=== PATIENT | male | born 1945 | race Caucasian/White ===

== ENCOUNTER 2019-05-29 15:09 | Outpatient (CLI) | payer MEDICARE, SELFPAY ==
--- NOTE | ~2019-05-29 | XR_ITS ---
EXAMINATION: XR abdomen obstructive series DATE: 05/29/2019 15:57 INDICATION: Diffuse abdominal pain with nausea and chronic constipation TECHNIQUE: Frontal supine and upright views of the abdomen were obtained. COMPARISON: CT dated 10/14/2018 FINDINGS: Cholecystectomy clips in the right upper quadrant. Likely dropped clips in the central pelvis. Moder ate amount of stool scattered throughout the colon. No dilated gas-filled loops of bowel. No free in traperitoneal gas. Lungs are clear with no focal airspace opacities, pleural effusion, pulmonary juan a or pneumothorax. Cardiomediastinal silhouette is normal. Dual lead pacemaker/AICD seen with leads p rojecting over the expected locations of the right atrium and right ventricle. A few phleboliths in t he pelvis. IMPRESSION: 1. No free intraperitoneal gas or dilated gas-filled loops of bowel to suggest obstruction. Reviewed, dictated and finalized at location B. [facility]
[2019-05-29 15:28] LABS: Basophils Absolute Auto 0.03 K/mm3 (0.00-0.10); Basophils Percent Auto 0.6 % (0.0-1.0); Eosinophils Absolute Auto 0.32 K/mm3 (0.02-0.50); Hematocrit 39.5 % (37.0-46.0); Hemoglobin 13.3 g/dL (12.4-15.3); Immature Granulocyte Absolute 0.02 K/mm3 (0.00-0.00); Immature Granulocyte Percent A 0.4 % (0.0-0.0); Lymphocytes Absolute Auto 1.36 K/mm3 (1.10-4.50); Lymphocytes Percent Auto 25.6 % (18.0-42.0); Mean Corpuscular HGB Conc 33.7 g/dL (32.0-36.0); Mean Corpuscular Hemoglobin 30.2 pg (27.0-31.0); Mean Corpuscular Volume 89.6 fL (78.0-102.0); Mean Platelet Volume 9.8 fl (8.7-11.0); Monocytes Absolute Auto 0.67 K/mm3 (0.10-0.90); Monocytes Percent Auto 12.6 % (2.0-11.0); Neutrophils Absolute Auto 2.9 K/mm3 (1.7-7.2); Neutrophils Percent Auto 54.8 % (50.0-70.0); Platelet Count Result 160 K/mm3 (150-420); Red Blood Count 4.41 M/mm3 (4.70-6.10); Red Cell Distribution Width 13.4 % (11.6-14.4); White Blood Count 5.3 K/mm3 (4.8-10.8)
[2019-05-29 15:33] LABS: Appearance Urine Clear (Clear); Bilirubin Urine Negative (Negative); Blood Urine Negative (Negative); Color Urine Yellow (Yellow); Glucose Urine UA Negative (Negative); Ketones Urine Negative (Negative); Leukocyte Esterase Ur Negative LEU/UL (Negative); Nitrate Urine Negative (Negative); Protein Urine Negative (Negative); Urobilinogen Urine 0.2 mg/dL (0.2-1.0); pH Urine 5.5 (5.0-8.0)
[2019-05-29 15:38] LABS: Add Urine Microscopic? NO
[2019-05-29 15:45] LABS: Alanine Aminotransferase 22 U/L (16-63); Albumin Level 3.9 g/dL (3.4-5.0); Alkaline Phosphatase 63 U/L (46-116); Amylase 41 U/L (25-115); Aspartate Amino Transferase 20 U/L (15-37); Bilirubin,Total 0.5 mg/dL (0.00-1.00); Blood Urea Nitrogen 20 mg/dL (7-18); Calcium 8.7 mg/dL (8.5-10.1); Carbon Dioxide 29 mmol/L (21-32); Chloride 103 mmol/L (98-108); Estimated Glomerular Filt Rate 46; Glucose 99 mg/dL (70-99); Lipase 71 U/L (73-393); Osmolality Calculated 294 mOsm/kg (285-295); Sodium 141 mmol/L (136-145); Total Protein 7.9 g/dL (6.4-8.2)
[2019-05-30 10:09] LABS: Free T4 Free Thyroxine 1.11 ng/dL (0.76-1.46); Thyroid Stimulating Hormone 4.53 uIU/mL (0.36-3.74)
== END 2019-05-29 15:10 | disposition home or self-care (01) ==
PROVIDERS: PCP Internal Medicine; Visit Provider Nurse Practitioner Family
DX: R10.9 Unspecified abdominal pain (principal); E03.9 Hypothyroidism, unspecified
CPT/HCPCS: 36415; 74019; 80053; 81003; 82150; 83690; 84439; 84443; 85025

== ENCOUNTER 2019-07-08 09:01 | Outpatient (CLI) | payer MEDICARE, SELFPAY ==
[2019-07-08 10:40] LABS: Blood Urea Nitrogen 14 mg/dL (9-20); Calcium 9.2 mg/dL (8.4-10.2); Carbon Dioxide 29 mmol/L (22-30); Chloride 99 mmol/L (98-107); Estimated Glomerular Filt Rate > 60; Glucose 110 mg/dL (75-110); Potassium 4.2 mmol/L (3.4-5.0); Sodium 137 mmol/L (137-145)
== END 2019-07-08 09:02 | disposition home or self-care (01) ==
PROVIDERS: PCP Internal Medicine; Visit Provider Internal Medicine
DX: R07.89 Other chest pain (principal)
CPT/HCPCS: 36415; 80048

== ENCOUNTER 2019-09-16 13:29 | Outpatient (CLI) | payer MEDICARE, SELFPAY ==
[2019-09-16 14:18] LABS: Basophils Percent Auto 0.5 % (0.2-1.2); Eosinophils Absolute Auto 0.1 K/mm3 (0-0.3); Eosinophils Percent Auto 2.1 % (0-4.4); Hematocrit 43.6 % (42.0-52.0); Hemoglobin 14.4 g/dL (14.0-18.0); Immature Granulocyte Absolute 0.01 K/mm3 (0.00-0.031); Immature Granulocyte Percent A 0.2 % (0-0.5); Lymphocytes Percent Auto 30.2 % (18.3-44.2); Mean Corpuscular Hemoglobin 29.5 pg (26-34); Mean Corpuscular Volume 89.3 fl (80-100); Monocytes Absolute Auto 0.5 K/mm3 (0.1-0.6); Monocytes Percent Auto 11.2 % (2.6-8.5); Neutrophils Absolute Auto 2.4 K/mm3 (1.3-6.7); Neutrophils Percent Auto 55.8 % (45.5-73.1); Platelet Count Result 174 k/mm3 (150-375); Red Blood Count 4.88 M/mm3 (4.6-6.20); Red Cell Distribution Width 13.4 % (11.5-14.5); White Blood Count 4.3 K/mm3 (4.5-10.0)
[2019-09-16 14:32] LABS: Alanine Aminotransferase 15 U/L (4-50); Albumin Level 4.4 g/dL (3.5-5.1); Alkaline Phosphatase 57 U/L (38-126); Aspartate Amino Transferase 26 U/L (17-59); Bilirubin,Total 0.5 mg/dL (0.2-1.3); Blood Urea Nitrogen 13 mg/dL (9-20); Calcium 9.2 mg/dL (8.4-10.2); Carbon Dioxide 31 mmol/L (22-30); Chloride 101 mmol/L (98-107); Estimated Glomerular Filt Rate 59; Glucose 113 mg/dL (75-110); Potassium 4.2 mmol/L (3.4-5.0); Sodium 139 mmol/L (137-145)
[2019-09-16 14:42] LABS: Troponin I < 0.012 ng/mL (0.000-0.034)
[2019-09-16 14:58] LABS: Erythrocyte Sedimentation Rate 8 mm/hr (0-20)
== END 2019-09-16 13:30 | disposition home or self-care (01) ==
PROVIDERS: PCP Internal Medicine; Visit Provider Internal Medicine Cardiovascular Disease
DX: I25.118 Atherosclerotic heart disease of native coronary artery with other forms of angina pectoris (principal); R07.9 Chest pain, unspecified
CPT/HCPCS: 36415; 80053; 84484; 85025; 85652

== ENCOUNTER 2019-12-25 09:40 | Outpatient (CLI) | payer MEDICARE, SELFPAY ==
[2019-12-25 11:30] LABS: Free T4 Free Thyroxine 1.45 ng/mL (0.78-2.19)
== END 2019-12-25 09:41 | disposition home or self-care (01) ==
LOC: ANHLAB 09:43
PROVIDERS: PCP Internal Medicine; Visit Provider Internal Medicine
DX: E78.5 Hyperlipidemia, unspecified (principal); Z12.5 Encounter for screening for malignant neoplasm of prostate
CPT/HCPCS: 36415; 84153; 84439; 84443; G0103

== ENCOUNTER 2019-12-29 02:59 | Outpatient (CLI) | payer MEDICARE, SELFPAY ==
[2019-12-30 22:31] LABS: SARS-CoV-2 RNA PCR Negative
== END 2019-12-29 03:00 | disposition home or self-care (01) ==
LOC: ANHCOVIDDT 03:00
PROVIDERS: PCP Internal Medicine; Visit Provider Specialist
DX: Z01.812 Encounter for preprocedural laboratory examination (principal); Z11.59 Encounter for screening for other viral diseases
CPT/HCPCS: 87635; C9803; U0003

== ENCOUNTER 2019-12-31 05:25 | Day surgery (SDC) | payer MEDICARE, SELFPAY ==
[2019-12-30 17:13] VITALS: BMI 35.3
[2019-12-31] VITALS (7 sets, daily range): BP systolic 94–132; BP diastolic 65–89; PULSE 60–84; RESP 12–20; TEMP 36.2–36.6; O2SAT 95–100
--- NOTE | 2019-12-31 08:30 | ECG_ITS ---
Measurements Intervals [place] Rate: 70 P: [place]: 0 QRS: -29 QRSD: 233 T: 70 QT: 529 QTc: 575 Interpretive Statements ELECTRONIC VENTRICULAR PACEMAKER FUSION COMPLEXES NO FURTHER INTERPRETATION IS POSSIBLE ATYPICAL ECG Electronically Signed On 12-31-2019 9:02:38 CDT by Sadi Ibrahim D.O.
[2019-12-31 09:36] LABS: Anion Gap 10.2 mmol/L (7-16); Blood Urea Nitrogen 13 mg/dL (9-20); Calcium 8.8 mg/dL (8.4-10.2); Carbon Dioxide 26 mmol/L (22-30); Chloride 104 mmol/L (98-107); Estimated CRCL calculation 77 ml/min; Estimated Glomerular Filt Rate > 60; Glucose 122 mg/dL (75-110); Magnesium 2.2 mg/dL (1.6-2.3); Potassium 4.2 mmol/L (3.4-5.0); Sodium 136 mmol/L (137-145)
--- NOTE | 2019-12-31 10:00 | ECG_ITS ---
Measurements Intervals [place] Rate: 60 P: 86 AR: 247 QRS: -37 QRSD: 197 T: 159 QT: 537 QTc: 537 Interpretive Statements ELECTRONIC ATRIAL PACEMAKER LEFT AXIS DEVIATION LEFT BUNDLE BRANCH BLOCK ABNORMAL ECG Electronically Signed On 12-31-2019 14:47:18 CDT by Sadi Ibrahim D.O.
--- NOTE | 2019-12-31 10:20 | WPDMODSED ---
Moderate Sedation Note-Pt Data Patient Data Diagnosis: recurrent atrial flutter ischemic cardiomyopathy with chronically implanted pacemaker/ICD Present Complaint: fatigue, exertional dyspnea Procedure to be performed/Plan: attempt at burst pacing cardioversion / DC cardioversion Allergies Allergy/AdvReac Type Severity Reaction Status Date / Time Sulfa (Sulfonamide Allergy Unknown Verified 08/02/18 00:09 Antibiotics) Home Medications Medication Instructions Recorded Confirmed Type amiodarone 400 mg PO DAILY 12/30/19 12/30/19 History aspirin 81 mg PO DAILY 12/30/19 12/30/19 History dabigatran etexilate [Pradaxa] 150 mg PO BID 12/30/19 12/30/19 History docusate sodium [Colace] 100 mg PO BID PRN 12/30/19 12/30/19 History eplerenone 25 mg PO DAILY 12/30/19 12/30/19 History folic acid 0.4 mg PO DAILY 12/30/19 12/30/19 History furosemide 40 mg PO DAILY 12/30/19 12/30/19 History isosorbide mononitrate 240 mg PO DAILY 12/30/19 12/30/19 History levothyroxine 50 mcg PO DAILY 12/30/19 12/30/19 History linaclotide [Linzess] 145 mcg PO DAILY 12/30/19 12/30/19 History metoprolol tartrate 50 mg PO BID 12/30/19 12/30/19 History ijqsxoydosre-qnu-fdxm-FA-vit K 1 tablet PO DAILY 12/30/19 12/30/19 History [Adults Multivitamin] nitroglycerin 0.4 mg SUBLINGUAL Q5MIN PRN 12/30/19 12/30/19 History nystatin 1 applic TOPICAL DAILY 12/30/19 12/30/19 History omega 1-gyp-tgl-fish oil [Fish Oil] 1 cap PO DAILY 12/30/19 12/30/19 History omeprazole 40 mg PO DAILY 12/30/19 12/30/19 History rosuvastatin 20 mg PO DAILY 12/30/19 12/30/19 History sacubitril-valsartan [Entresto] 49 - 51 tablet PO BID 12/30/19 12/30/19 History Current Medications: Active Medications Sodium Chloride (Normal Saline Iv) 1,000 mls @ 30 mls/hr IV CONT .Q24H NATALI Sedation/Anesthesia: No previous sedation/anesthesia problems (including family history). [facility] Social History Social History Smoking status: Never smoker Substance use: never Living arrangements: with family Gender identity (if verbalized by the patient): Male Spiritual care concerns: No Mod Sed Physical Exam Physical Exam Pre Procedural Exam: Normal: Neck, Throat, Airway, Lungs, Heart Size, Heart Rate, Heart Rhythm, Neuro Exam and Extremities and Variation: Appearance ( overweight white male no apparent distress) Hours since solid foods: 12 Hours since liquid intake: 12 Internal Medicine - PN: Obj Da Vital Signs Vital Signs: Vital Signs - 24 hr 12/31/19 09:24 12/31/19 10:07 12/31/19 10:15 Temperature 36.6 C Pulse Rate 84 70 61 Respiratory Rate 15 20 15 Blood Pressure 108/72 128/89 113/71 Pulse Oximetry 97 100 95 Meds/Results Medications: Active Medications Generic Name Dose Route Start Last Admin Trade Name Freq PRN Reason Stop Dose Admin Sodium Chloride 1,000 mls @ 30 mls/hr 12/31/19 06:00 Normal Saline Iv IV CONT .Q24H [facility] Labs CBC & Chem 7: 12/31/19 09:20 Labs: Laboratory Results - last 24 hr 12/31/19 09:20 Sodium 136 L Potassium 4.2 Chloride 104 Carbon Dioxide 26 Anion Gap 10.2 BUN 13 Creatinine 1.00 Estim Creat Clear Calc 77 Estimated GFR > 60 Glucose 122 H Calcium 8.8 Magnesium 2.2 ASA Classification/Sedation ASA Classification/Sedation ASA Class: II Emergent: No Risks: Risks, benefits and alternatives explained and patient/family accepted plan for sedation. Patient re-evaluated immediately prior to sedation.
--- NOTE | 2019-12-31 10:22 | P.PCNCC_ITS ---
Cardiac Cath Procedure Note Date of procedure:: 12/31/19 Performing physician:: Antonio Bone MD Indication:: recurrent atrial flutter ischemic cardiomyopathy Brief clinical history:: this is a 74-year-old man with coronary disease he has an ischemic cardiomyopathy and a chronically implanted pacemaker/ICD. He has a history of atrial flutter and is now experiencing a sustained recurrence of his rhythm arrhythmia and this is creating symptoms of decreased exertional tolerance. Procedure Procedure performed:: Attempt at burst pacing using the chronically implanted pacemaker /ICD to restore sinus rhythm. this was unsuccessful DC cardioversion Sedation/Medication given:: propofol total dosage of 80 mg IV push in aliquots Access site:: right arm peripheral IV Estimated blood loss:: no blood loss Procedure note:: following an attempt at burst pacing by the [employer] pacemaker rep to restore sinus rhythm which failed the patient was then sedated using propofol. A total dosage of 80 mg was given which provided excellent procedural sedation. He was then cardioverted with 200 joules in a synchronized fashion x1 shock. atrial flutter was immediately terminated and the rhythm was AV sequential pacing. Findings:: Successful uncomplicated cardioversion of atrial flutter using 200 joules x1 shock Conclusion:: as above Antonio Bone MD [facility]
--- NOTE | 2019-12-31 10:39 | SUR.PHASEII ---
1000- Rep at bedside to attempt to interrogate pacemaker prior to scheduled cardioversion. Interrogation unsuccessful. Cardioversion performed per with him at bedside. Successful cardioversion at 1011 with 200 J. Please see moderate sedation sheet for medication given during procedure.
--- NOTE | 2019-12-31 11:29 | SUR.PHASEII ---
Reviewed discharge instructions with patient and spouse. All questions answered. PIV removed, catheter intact. Patient and spouse safely escorted to vehicle via wheelchair by staff.
== END 2019-12-31 11:29 | disposition home or self-care (01) ==
PROVIDERS: PCP Internal Medicine; Visit Provider Specialist
PROC: 5A2204Z Restoration of Cardiac Rhythm, Single (ICD-10-PCS; principal; 2019-12-31 10:00)
DX: I48.92 Unspecified atrial flutter (principal); Z95.810 Presence of automatic (implantable) cardiac defibrillator; I25.10 Atherosclerotic heart disease of native coronary artery without angina pectoris; I25.5 Ischemic cardiomyopathy; Z79.82 Long term (current) use of aspirin; Z79.01 Long term (current) use of anticoagulants
CPT/HCPCS: 36415; 80048; 83735; 92960; 93005; J2704; J7030

== ENCOUNTER 2020-01-24 08:28 | Inpatient (IN) | payer MEDICARE, SELFPAY ==
[2020-01-24] VITALS (16 sets, daily range): BP systolic 97–125; BP diastolic 57–81; PULSE 60–70; RESP 14–20; TEMP 35.9–36.9; O2SAT 97–100; BMI 34.7
--- NOTE | ~2020-01-24 | XR_ITS ---
EXAMINATION: XR chest 2V DATE: 01/24/2020 08:58 INDICATION: Chest pain and shortness of breath TECHNIQUE: PA and lateral views of the chest are obtained. COMPARISON: 03/12/2019 FINDINGS: The lungs are free of acute opacities. There is no pleural effusion or pneumothorax. The ca rdiomediastinal silhouette is normal. There is mild thoracic spondylosis. A dual-lead cardiac pacemak er of the left chest wall ends with leads in expected locations. IMPRESSION: 1. No acute cardiopulmonary abnormality. Reviewed, dictated and finalized at location A.
--- NOTE | 2020-01-24 08:43 | ECG_ITS ---
Measurements Intervals [place] Rate: 61 P: 214 [place]: 116 QRS: 4 QRSD: 189 T: 139 QT: 539 QTc: 544 Interpretive Statements ELECTRONIC ATRIAL PACEMAKER WITH INHIBITION ELECTRONIC VENTRICULAR PACEMAKER WITH INHIBITION LEFT BUNDLE BRANCH BLOCK BASELINE ARTIFACT- II, III, AVR, AVL, AVF, NO FURTHER INTERPRETATION IS POSSIBLE ABNORMAL ECG Electronically Signed On 01-24-2020 12:36:17 CDT by Sadi Ibrahim D.O.
[2020-01-24 09:03] LABS: Basophils Percent Auto 0.7 % (0.2-1.2); Eosinophils Absolute Auto 0.3 K/mm3 (0-0.3); Eosinophils Percent Auto 5.8 % (0-4.4); Hematocrit 41.1 % (42.0-52.0); Hemoglobin 13.7 g/dL (14.0-18.0); Immature Granulocyte Absolute 0.01 K/mm3 (0.00-0.031); Immature Granulocyte Percent A 0.2 % (0-0.5); Lymphocytes Absolute Auto 1.24 K/mm3 (0.9-3.2); Lymphocytes Percent Auto 27.6 % (18.3-44.2); Mean Corpuscular HGB Conc 33.3 g/dl (32-36); Mean Corpuscular Hemoglobin 29.4 pg (26-34); Mean Corpuscular Volume 88.2 fl (80-100); Mean Platelet Volume 10.4 fl (7.4-10.4); Monocytes Absolute Auto 0.5 K/mm3 (0.1-0.6); Monocytes Percent Auto 10.2 % (2.6-8.5); Neutrophils Absolute Auto 2.5 K/mm3 (1.3-6.7); Neutrophils Percent Auto 55.5 % (45.5-73.1); Platelet Count Result 160 k/mm3 (150-375); Red Blood Count 4.66 M/mm3 (4.6-6.20); Red Cell Distribution Width 13.5 % (11.5-14.5); White Blood Count 4.5 K/mm3 (4.5-10.0)
--- NOTE | 2020-01-24 09:10 | ED.CHESTPAIN ---
HPI - Chest Pain General Chief Complaint: Chest Pain Stated Complaint: sob/chest pain Time Seen by Provider: 01/24/20 08:35 History of Present Illness HPI narrative: Pressure-like exertional chest pain for the past few weeks. Associated with SOB. becoming more freuqent and severe. Known CAD. Reports abnormal stress test a few months ago. Cardiac cath cancelled due to COVID-19. No pain currently. Related Data Home Medications Medication Instructions Recorded Confirmed Adults Multivitamin 1 tablet PO DAILY 12/30/19 01/24/20 Entresto 49 - 51 tablet PO BID 12/30/19 01/24/20 Fish Oil 1 cap PO HS 12/30/19 01/24/20 Linzess 145 mcg PO DAILY 12/30/19 01/24/20 Pradaxa 150 mg PO BID 12/30/19 01/24/20 amiodarone 200 mg PO BID 12/30/19 01/24/20 aspirin 81 mg PO HS 12/30/19 01/24/20 docusate sodium [Colace] 250 mg PO HS PRN 12/30/19 01/24/20 eplerenone 25 mg PO HS 12/30/19 01/24/20 folic acid 0.4 mg PO HS 12/30/19 01/24/20 furosemide 40 mg PO DAILY 12/30/19 01/24/20 isosorbide mononitrate 120 mg PO BID 12/30/19 01/24/20 levothyroxine 50 mcg PO DAILY 12/30/19 01/24/20 metoprolol tartrate 50 mg PO BID 12/30/19 01/24/20 nitroglycerin 0.4 mg SUBLINGUAL Q5MIN PRN 12/30/19 01/24/20 omeprazole 40 mg PO DAILY 12/30/19 01/24/20 rosuvastatin 20 mg PO HS 12/30/19 01/24/20 Allergies Allergy/AdvReac Type Severity Reaction Status Date / Time Sulfa (Sulfonamide Allergy Intermediate Rash Verified 01/24/20 08:38 Antibiotics) Review of Systems Review of Systems: All systems reviewed & are unremarkable except as noted in HPI and below Constitutional: Constitutional: Denies fever(s) Cardiovascular: Cardiovascular: Reports chest pain Respiratory: Respiratory: Reports dyspnea Gastrointestinal: Gastrointestinal: Denies abdominal pain and Denies nausea PMFSH Past Medical History Medical History Coronary artery disease History of anterior wall [place] in 1993 status post balloon angioplasty of the LAD. He is a patient of Dr. Tri Nuñez. Ischemic cardiomyopathy Last ejection fraction was approximately 20%. Status post PM/ICD insertion. Left bundle branch block Paroxysmal atrial fibrillation History of several cardioversions, on long-term anticoagulation. Paroxysmal atrial flutter Status post DC cardioversion on 12/31/2019. Surgical History Surgical History History of cardiac catheterization History of cholecystectomy History of squamous cell carcinoma excision (~05/2016) Excised from the right conchal bowl with FTSG per Dr. Hsu. Presence of combination internal cardiac defibrillator (ICD) and pacemaker [employer] PM/ICD placed in 2000 with history of generator changed x2. Family History Family History Father Acute myocardial infarction Hypertension Sibling Hypertension Social History Social History Social History: Surrogate decision maker: Susana Mcneal, spouse. Code status: Full code. Smoking status: Never smoker Alcohol intake: never Substance use: never Additional living arrangements comments: Resides in [place] with his spouse. Gender identity (if verbalized by the patient): Male Sexual Orientation (if Verbalized by the Patient): Straight or Heterosexual Spiritual care concerns: No Exam Const: General: no acute distress and alert Orientation/consciousness: patient oriented x3 HENMT: Head: normal to inspection Chest: Chest palpation & inspection: normal inspection of the chest and no tenderness Resp: Effort & Inspection: normal respiratory effort Auscultation: clear to auscultation bilaterally Cardio: Rate: regular rate Rhythm: regular rhythm Neuro: General: patient oriented x3, moves all extremities and CN's II-XI intact bilaterally Speech: normal
[2020-01-24 09:12] LABS: INR 1.3
[2020-01-24 09:13] LABS: Partial Thromboplastin Time 39.2 SECONDS (22.3-36.8)
[2020-01-24 09:16] LABS: Anion Gap 7 mmol/L (8-16); Blood Urea Nitrogen 15 mg/dL (9-20); Calcium 9.1 mg/dL (8.4-10.2); Carbon Dioxide 27 mmol/L (22-30); Chloride 103 mmol/L (98-107); Estimated CRCL calculation 83 ml/min; Estimated Glomerular Filt Rate > 60; Glucose 112 mg/dL (75-110); Potassium 4.2 mmol/L (3.4-5.0); Sodium 137 mmol/L (137-145)
[2020-01-24] MEDS: ASPIRIN 81 MG CHEWABLE TABLET 324 MG PO (09:24)
--- NOTE | 2020-01-24 09:25 | PC.NURSE ---
Pt given 3 baby aspirin po as had his normal dose (81mg) last evening.
[2020-01-24 09:28] LABS: NT Pro B Type Natriuretic Pept 235 PG/ML (5-100); Troponin I < 0.012 ng/mL (0.000-0.034)
--- NOTE | 2020-01-24 10:52 | PM.CNCAR ---
Assessment and Plan Assessment and plan (1) Unstable angina: Code(s): I20.0 - Unstable angina Status: Acute Assessment and Plan: 74-year-old male with CAD, history of remote anterior [place] in 1993 treated with angioplasty; CHF with reduced ejection fraction ( last LVEF 20%) status post dual-chamber [employer] ICD placement; atrial fibrillation/flutter status post multiple cardioversions, recent DC cardioversion (12/31/2019), on chronic anticoagulation, chronic left bundle-branch block. Patient admitted to the hospital with worsening angina. EKG shows sinus rhythm, chronic left bundle branch block. First set of troponins negative. Due to patient's worsening angina, repeat coronary angiogram to re-evaluate patient coronary anatomy would be appropriate. Patient has been on chronic anticoagulation with dabigatran until this morning. Dabigatran will be put on hold and patient will be initiated on low-molecular weight heparin. Patient will undergo coronary angiogram in 2 days, earlier only if necessary. continue other medications including aspirin, statin, CHF medications and nitroglycerin p.r.n. for chest pain. Admit patient to telemetry. (2) Ischemic cardiomyopathy: Code(s): I25.5 - Ischemic cardiomyopathy Status: Acute Assessment and Plan: Patient will undergo cardiac catheterization to re-evaluate coronary anatomy during the hospitalization. (3) History of cardioversion: Code(s): Z98.890 - Other specified postprocedural states Status: Acute Assessment and Plan: Dabigatran will be put on hold in anticipation for cardiac catheterization. Patient will be initiated on low-molecular weight heparin. History of Present Illness History of Present Illness Consult date/time: 01/24/20 10:52 Date of service: 01/24/2020 Reason for consult: chest pain Requesting physician:Dr Recinos Chief complaint: Chest pain HPI: 74-year-old male with CAD, history of remote anterior NE in 1993 treated with angioplasty; CHF with reduced ejection fraction ( last LVEF 20%) status post dual-chamber [employer] ICD placement; atrial fibrillation/flutter status post multiple cardioversions, recent DC cardioversion (12/31/2019), on chronic anticoagulation, chronic left bundle-branch block. Patient follows up with Dr. Nuñez for cardiovascular care. Review of notes indicate that he has been been managed with optimal medical treatment for his chronic angina. His previous MPI is reported to show large anterior infarction without ischemia. Patient came to [facility] ER on 01/24/2020 with complaints of Worsening chest discomfort. He has baseline angina, however, her last 2-3 days, states that his symptoms of chest pain are more frequent and happen with less exertion. His symptoms are associated with shortness of breath, occasional dizziness without syncope. He denies any ICD shocks. Patient has history of atrial fibrillation /flutter, and has been on chronic anticoagulation with dabigatran. His last dose of dabigatran was this morning. His EKG which I personally evaluated showed sinus rhythm with Chronic left bundle branch block, no acute ST segment abnormality. chest x-ray is unremarkable. First set of troponins negative. NT proBNP is 235. . Patient's last cardiac catheterization was done on 12/12/[address] Nuñez. He was found to have patent left main, focal stenosis in the LAD with normal IFR; 50-70% stenosis ostial ramus, mild disease in the RCA, EF 20%. He was managed with optimal medical treatment. Reason For Visit: sob/chest pain Review of Systems Constitutional: Constitutional: Denies chills, Denies fatigue, Denies fever(s) and Denies headache(s) Eyes: Eyes: Reports as per HPI, Denies change in vision, Denies loss of vision and Denies eye pain ENT: Reports as per HPI, Reports Normal hearing present, Denies headache(s), Denies lip swelling, Denies e
--- NOTE | 2020-01-24 11:18 | PC.NURSE ---
Report to ANAIS Brasher, continue care.
[2020-01-24 12:01] LABS: Troponin I < 0.012 ng/mL (0.000-0.034)
[2020-01-24] MEDS: ENOXAPARIN 120 MG/0.8 ML SYRINGE 115 MG SUB-Q (12:58)
--- NOTE | 2020-01-24 13:30 | ADMGEN ---
This patient, Andrés Mcneal, was admitted to IMU Room 207-01. Patient/family oriented to hospital policies and general routines including ID bracelet, bed and alarms, visiting hours, pain management, procedures, bathroom and other care routines, personal items, smoking policy, room service/diet, and visiting hours. Valuables list has been completed. Information on how to activate the Rapid Response Team has been discussed. Patient/Family are encouraged to report perceived risks to care and to ask questions if they do not understand what they are told or what they should do.
[2020-01-24 15:22] LABS: Troponin I < 0.012 ng/mL (0.000-0.034)
--- NOTE | 2020-01-24 15:45 | PM.IMHP ---
H&P: HPI History of Present Illness Date/Time: 01/24/20 15:45 <Sara Perez PA-C - Last Filed: 01/24/20 23:51> Chief complaint: Chest pain. <Sara Perez PA-C - Last Filed: 01/24/20 23:51> Narrative: Andrés Mcneal is a 74-year-old male with coronary artery disease in remote history of anterior wall myocardial infarction status post balloon angioplasty to the LAD, severe ischemic cardiomyopathy with last ejection fraction approximately 20%, status post pain PM/ICD insertion, paroxysmal atrial fibrillation and flutter status with history of several cardioversions, the most recent being 12/31/2019, hypertension, dyslipidemia, and hypothyroidism who presented to the emergency department earlier today for evaluation of chest pain. Several days while walking around the home he felt a little short of breath, which is unusual. When he developed increasing shortness of breath and midsternal discomfort while walking from his car to the store the other day he became concerned. Apparently he had a fluttering sensation in his chest and then experienced discomfort radiating into the jaw and left arm, similar to when he had an [place] in 1993. Nitroglycerin did not help, unfortunately. He also mentions sweats, mainly at nighttime over the past 1 month, not necessarily related to the chest discomfort and shortness of breath. He has not had nausea or vomiting. He does not believe that he was in atrial fibrillation/flutter when this sensation occurred as he can typically tell when he is in an irregular rhythm , but he does note that his heart rate was faster than usual, and tells me that his pacemaker is set to 60 beats per minute. At the time my evaluation he does not have any complaints and is having no chest discomfort or shortness of breath. He has not had fever or chills and denies recent cold and flu symptoms. No sick contacts, recent travel, or exposure to anyone positive for COVID-19. <Sara Perez PA-C - Last Filed: 01/24/20 23:51> Review of Systems Review of Systems: Narrative: Twelve systems were reviewed with pertinent positives and negatives as per HPI. No orthopnea, PND, or lower extremity edema. He denies calf pain. No history of venous thromboembolism. No pleuritic pain. Except as documented, all other systems were reviewed and are negative. <Sara Perez PA-C - Last Filed: 01/24/20 23:51> [facility] Past Medical History Medical History: Medical History (Updated 01/25/20 @ 10:30 by Gurvinder Baez MD) Coronary artery disease History of anterior wall [place] in 1993 status post balloon angioplasty of the LAD. He is a patient of Dr. Tri Nuñez. Essential hypertension Gastroesophageal reflux disease Hyperlipidemia Hypothyroidism Ischemic cardiomyopathy Last ejection fraction was approximately 20%. Status post PM/ICD insertion. Left bundle branch block Paroxysmal atrial fibrillation History of several cardioversions, on long-term anticoagulation. Paroxysmal atrial flutter Status post DC cardioversion on 12/31/2019. 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 <Sara Perez PA-C - Last Filed: 01/24/20 23:51> Surgical History Surgical History: Surgical History History of cardiac catheterization History of cholecystectomy History of squamous cell carcinoma excision (~05/2016) Excised from the right conchal bowl with FTSG per Dr. Hsu. Presence of combination internal cardiac defibrillator (ICD) and pacemaker [employer] PM/ICD placed in 2000 with history of generator changed x2. <Sara Perez PA-C - Last Filed: 01/24/20 23:51> Family History Family History: Family History Father Acute myocardial infarction Hypertension Sibling Hypertension <Sara Perez PA-C - Last Filed: 01/24/20 23:51> Social Histor
[2020-01-24] MEDS: SACUBITRIL/VALSARTAN 49-51 MG TABLET 1 TABLET PO (18:24)
[2020-01-24] MEDS: ISOSORBIDE MONONITRATE 60 MG TAB.ER.24H 120 MG PO (18:24)
[2020-01-24] MEDS: AMIODARONE HCL 200 MG TABLET PO (18:25)
[2020-01-24] MEDS: FOLIC ACID 0.4 MG TABLET PO (20:57)
[2020-01-24] MEDS: METOPROLOL TARTRATE 50 MG TAB PO (20:57)
[2020-01-24] MEDS: ROSUVASTATIN 10 MG TABLET 20 MG PO (20:57)
[2020-01-24] MEDS: OMEGA 3 POLYUNSAT FATTY ACIDS 1 GM CAP PO (20:57)
[2020-01-24] MEDS: ASPIRIN 81 MG CHEWABLE TABLET PO (20:59)
[2020-01-25] VITALS (17 sets, daily range): BP systolic 93–108; BP diastolic 60–65; PULSE 12–94; RESP 12–97; TEMP 35.5–36.4; O2SAT 97–99
[2020-01-25] MEDS: ENOXAPARIN 120 MG/0.8 ML SYRINGE 115 MG SUB-Q ×2 (00:11→12:00)
[2020-01-25 04:47] LABS: Hematocrit 41.2 % (42.0-52.0); Mean Corpuscular Volume 88.4 fl (80-100); Mean Platelet Volume 10.4 fl (7.4-10.4); Platelet Count Result 150 k/mm3 (150-375); Red Blood Count 4.66 M/mm3 (4.6-6.20); Red Cell Distribution Width 13.2 % (11.5-14.5); White Blood Count 4.6 K/mm3 (4.5-10.0)
[2020-01-25 05:03] LABS: Alanine Aminotransferase 16 U/L (4-50); Albumin Level 4.1 g/dL (3.5-5.1); Alkaline Phosphatase 60 U/L (38-126); Anion Gap 7 mmol/L (8-16); Aspartate Amino Transferase 25 U/L (17-59); Bilirubin,Total 0.8 mg/dL (0.2-1.3); Blood Urea Nitrogen 15 mg/dL (9-20); Carbon Dioxide 29 mmol/L (22-30); Chloride 100 mmol/L (98-107); Estimated CRCL calculation 69 ml/min; Estimated Glomerular Filt Rate > 60; Glucose 105 mg/dL (75-110); Magnesium 2.3 mg/dL (1.6-2.3); Potassium 3.6 mmol/L (3.4-5.0); Sodium 136 mmol/L (137-145)
[2020-01-25] MEDS: LEVOTHYROXINE SODIUM 100 MCG TABLET PO (06:12)
[2020-01-25] MEDS: FUROSEMIDE 40 MG TABLET PO (08:07)
[2020-01-25] MEDS: AMIODARONE HCL 200 MG TABLET PO ×2 (08:08→18:00)
[2020-01-25] MEDS: ISOSORBIDE MONONITRATE 60 MG TAB.ER.24H 120 MG PO ×2 (08:08→18:00)
[2020-01-25] MEDS: PANTOPRAZOLE 40 MG TABLET PO (08:09)
[2020-01-25] MEDS: METOPROLOL TARTRATE 50 MG TAB PO ×2 (08:09→19:53)
[2020-01-25] MEDS: MULTIVITAMINS /C LUTEIN (CENTRUM SILVER) TABLET *BKC 1 TAB PO (08:10)
[2020-01-25] MEDS: SACUBITRIL/VALSARTAN 49-51 MG TABLET 1 TABLET PO ×2 (08:10→18:00)
--- NOTE | 2020-01-25 09:45 | PM.PNCARD ---
Progress Note: A&P Assessment and Plan (1) Unstable angina: Code(s): I20.0 - Unstable angina Status: Acute Assessment and Plan: 74-year-old male with CAD, history of remote anterior [place] in 1993 treated with angioplasty; CHF with reduced ejection fraction ( last LVEF 20%) status post dual-chamber [employer] ICD placement; atrial fibrillation/flutter status post multiple cardioversions, recent DC cardioversion (12/31/2019), on chronic anticoagulation, chronic left bundle-branch block. Patient admitted to the hospital with worsening angina. EKG shows sinus rhythm, chronic left bundle branch block. Serial troponins are negative. Due to patient's worsening angina, repeat coronary angiogram to re-evaluate patient coronary anatomy would be appropriate. Patient had been on chronic anticoagulation with dabigatran which he had taken until the day of admission. - Continue to hold dabigatran. Continue low-molecular weight heparin, last dose tonight. Keep NPO from midnight. Patient will undergo coronary angiogram tomorrow, earlier only if necessary. continue other medications including aspirin, statin, CHF medications and nitroglycerin p.r.n. for chest pain. continue to monitor in telemetry. (2) Ischemic cardiomyopathy: Code(s): I25.5 - Ischemic cardiomyopathy Status: Acute Assessment and Plan: Patient will undergo cardiac catheterization to re-evaluate coronary anatomy during the hospitalization. (3) History of cardioversion: Code(s): Z98.890 - Other specified postprocedural states Status: Acute Assessment and Plan: Dabigatran on hold in anticipation for cardiac catheterization. Patient will be initiated on low-molecular weight heparin. Subjective Date/time seen: 01/25/20 09:45 date of service: 01/25/2020 Patient had fluttering sensation in the chest last night and dyspnea on exertion. This morning, he denies any ongoing chest pain. Review of Systems Constitutional: Constitutional: Denies chills, Denies fatigue, Denies fever(s) and Denies headache(s) Eyes: Eyes: Reports as per HPI, Denies change in vision, Denies loss of vision and Denies eye pain ENT: Reports as per HPI, Reports Normal hearing present, Denies headache(s), Denies lip swelling, Denies epistaxis and Denies sore throat Cardiovascular: Cardiovascular: Reports as per HPI, Reports chest pain, Denies syncope, Denies irregular heart rhythm, Reports lightheadedness and Reports dyspnea Respiratory: Respiratory: Reports as per HPI, Denies cough, Denies dyspnea and Denies wheezing Gastrointestinal: Gastrointestinal: Reports as per HPI, Denies abdominal pain, Denies melena, Denies nausea and Denies vomiting Genitourinary: Genitourinary: Reports as per HPI Musculoskeletal: Musculoskeletal: Reports as per HPI, Denies myalgias, Denies muscle cramps and Denies muscle weakness Integumentary/Breasts: Skin/Breast: Reports as per HPI, Denies pruritus and Denies rash Neurologic: Reports as per HPI, Reports Normal hearing present, Denies behavioral changes, Denies syncope, Denies headache(s) and Denies loss of vision Psychiatric: Psychiatric: Reports as per HPI, Denies anxiety, Denies behavioral changes and Denies depression Endocrine: Endocrine: Reports as per HPI, Denies fatigue, Denies polydipsia and Denies polyuria Hematologic/Lymphatic: Hematologic/Lymphatic: Reports as per HPI, Denies easy bleeding and Denies easy bruising Allergic/Immunologic: Allergic/Immunologic: Reports as per HPI, Denies lip swelling and Denies wheezing Exam Const: General: no acute distress, alert and awake HENMT: Head: normocephalic and atraumatic Ears: hearing grossly normal bilaterally and external ears normal General nose exam: Normal external nose present and no epistaxis Face and sinus: normal facial exam and no ecchymosis Mouth: Yes tongue normal and Yes moist mucous membranes Teeth and gingiva: dentition normal
--- NOTE | 2020-01-25 10:18 | PM.IMPN ---
Progress Note: A&P Assessment and Plan (1) Chest pain: Code(s): R07.9 - Chest pain, unspecified Status: Acute Assessment and Plan: Patient presents with several days of angina, with no improvement with nitroglycerin. EKG showing paced rhythm. troponin negative x3. Cardiology is following along. Plan for coronary angiogram tomorrow. Continue aspirin, statin, and beta-sunil. (2) Ischemic cardiomyopathy: Code(s): I25.5 - Ischemic cardiomyopathy Status: Acute Assessment and Plan: Clinically compensated. PM/ICD in situ. Continue Entresto, eplerenone, and furosemide. (3) Hypothyroidism: Code(s): E03.9 - Hypothyroidism, unspecified Status: Acute Assessment and Plan: TSH 4.8. Continue levothyroxine (4) Hyperlipidemia: Code(s): E78.5 - Hyperlipidemia, unspecified Status: Acute Assessment and Plan: LFTs within normal limits. Continue Crestor. (5) Essential hypertension: Code(s): I10 - Essential (primary) hypertension Status: Acute Assessment and Plan: Patient's blood pressure was reviewed on 01/24 Blood pressure remains well controlled. Watch for hypotension. Will continue current medications. (6) Paroxysmal atrial fibrillation: Code(s): I48.0 - Paroxysmal atrial fibrillation Status: Acute Assessment and Plan: Paced rhythm. Continue Amiodarone. Dabigatran on hold per Dr. Aguila in anticipation of cardiac catheterization on Sunday. Currently on therapeutic doses of low molecular weight heparin b.i.d. until that time. (7) DVT prophylaxis: Code(s): Z29.9 - Encounter for prophylactic measures, unspecified Status: Acute Assessment and Plan: Lovenox. Subjective Date/time seen: 01/25/20 10:18 Interval history: 74yo male with iCMP and pAFib here for chest pain. Patient had his amiodarone dose increased 3 weeks ago. He had cardioversion 2 weeks ago. Over the past week he has noted chest fluttering. He had 1 episode where he was walking out of a store when he developed jaw pain that radiated down his left arm. This was associated with chest fluttering as well. The jaw pain is similar to the time he had myocardial infarction 1993. The pain was not as severe as it was back then. Because this reason he presented emergency room evaluation. He did have an episode of fluttering in the chest overnight but not currently. The symptoms occurred at rest. They seem to worsen when he was up walking to the bathroom. He did not notify the nurse. Exam Narrative: Exam Narrative: AF 96.1 108/65 61 16 Gen - NARD Chest - CTA bilaterally, nml RR CV - RRR S1/S2. Telemetry showing paced rhythm but no significant dysrhythmias Abd - Soft, NT/ND, Positive BS Ext - No pedal edema Neuro - Alert and oriented. Nonfocal exam. Psych - Nml mood and affect Skin - Warm and dry Objective Data Vital Signs Vital Signs: Vital Signs - 24 hr 01/24/20 11:32 01/24/20 12:58 01/24/20 13:30 Temperature 98 F 98.5 F Pulse Rate 60 60 61 Respiratory Rate 16 16 20 Blood Pressure 107/73 122/69 117/68 Pulse Oximetry 97 97 99 01/24/20 14:00 01/24/20 14:05 01/24/20 16:00 Temperature Pulse Rate 60 60 60 Respiratory Rate 16 Blood Pressure Pulse Oximetry 97 01/24/20 16:52 01/24/20 18:00 01/24/20 18:25 Temperature 96.6 F L Pulse Rate 61 61 61 Respiratory Rate 16 Blood Pressure 97/57 L Pulse Oximetry 97 01/24/20 19:36 01/24/20 20:00 01/24/20 20:57 Temperature 96.8 F L Pulse Rate 60 60 61 Respiratory Rate 16 16 Blood Pressure 104/66 Pulse Oximetry 99 9
[2020-01-25] MEDS: ROSUVASTATIN 10 MG TABLET 20 MG PO (19:50)
[2020-01-25] MEDS: OMEGA 3 POLYUNSAT FATTY ACIDS 1 GM CAP PO (19:53)
[2020-01-25] MEDS: FOLIC ACID 0.4 MG TABLET PO (19:53)
[2020-01-25] MEDS: ASPIRIN 81 MG CHEWABLE TABLET PO (19:56)
[2020-01-25 23:59] LABS: Free T4 Free Thyroxine Reflex 1.67 ng/dL (0.78-2.19)
[2020-01-26] VITALS (31 sets, daily range): BP systolic 94–130; BP diastolic 55–70; PULSE 57–91; RESP 12–20; TEMP 35.8–36.6; O2SAT 94–99
[2020-01-26 02:09] LABS: Total Triiodothyronine (T3) 1.17 NG/ML (0.97-1.69)
[2020-01-26] MEDS: LEVOTHYROXINE SODIUM 50 MCG TABLET PO (05:57)
--- NOTE | 2020-01-26 06:51 | PC.NURSE ---
Pt arrived approx 0600 01/26/2020
[2020-01-26] MEDS: SACUBITRIL/VALSARTAN 49-51 MG TABLET 1 TABLET PO ×2 (08:35→18:03)
[2020-01-26] MEDS: METOPROLOL TARTRATE 50 MG TAB PO ×2 (08:35→21:08)
[2020-01-26] MEDS: ISOSORBIDE MONONITRATE 60 MG TAB.ER.24H 120 MG PO ×2 (08:35→18:02)
[2020-01-26] MEDS: ASPIRIN 81 MG CHEWABLE TABLET PO (08:36)
[2020-01-26] MEDS: PANTOPRAZOLE 40 MG TABLET PO (08:36)
[2020-01-26] MEDS: MULTIVITAMINS /C LUTEIN (CENTRUM SILVER) TABLET *BKC 1 TAB PO (08:37)
[2020-01-26] MEDS: AMIODARONE HCL 200 MG TABLET PO ×2 (08:50→18:03)
--- NOTE | 2020-01-26 12:49 | WPDMODSED ---
Moderate Sedation Note-Pt Data Patient Data Diagnosis: Coronary artery disease, previous [place] and PCI to LAD in the remote past symptoms compatible with accelerating angina ischemic cardiomyopathy with chronically implanted ICD Present Complaint: exertional chest pain Procedure to be performed/Plan: left heart catheterization Allergies Allergy/AdvReac Type Severity Reaction Status Date / Time Sulfa (Sulfonamide Allergy Intermediate Rash Verified 01/24/20 08:38 Antibiotics) Home Medications Medication Instructions Recorded Confirmed Type Adults Multivitamin 1 tablet PO DAILY 12/30/19 01/24/20 History Entresto 49 - 51 tablet PO BID 12/30/19 01/24/20 History Fish Oil 1 cap PO HS 12/30/19 01/24/20 History Linzess 145 mcg PO DAILY 12/30/19 01/24/20 History Pradaxa 150 mg PO BID 12/30/19 01/24/20 History amiodarone 200 mg PO BID 12/30/19 01/24/20 History aspirin 81 mg PO HS 12/30/19 01/24/20 History docusate sodium [Colace] 250 mg PO HS PRN 12/30/19 01/24/20 History eplerenone 25 mg PO HS 12/30/19 01/24/20 History folic acid 0.4 mg PO HS 12/30/19 01/24/20 History furosemide 40 mg PO DAILY 12/30/19 01/24/20 History isosorbide mononitrate 120 mg PO BID 12/30/19 01/24/20 History levothyroxine 50 mcg PO DAILY 12/30/19 01/24/20 History metoprolol tartrate 50 mg PO BID 12/30/19 01/24/20 History nitroglycerin 0.4 mg SUBLINGUAL Q5MIN PRN 12/30/19 01/24/20 History omeprazole 40 mg PO DAILY 12/30/19 01/24/20 History rosuvastatin 20 mg PO HS 12/30/19 01/24/20 History Current Medications: Active Medications Amiodarone HCl (Pacerone) 200 mg PO BID [facility] Last Admin: 01/26/20 08:50 Dose: 200 mg Documented by: Aspirin (Aspirin Chewable) 81 mg PO DAILY [facility] Last Admin: 01/26/20 08:36 Dose: 81 mg Documented by: Docusate Sodium (Colace Capsule) 200 mg PO HS PRN PRN Reason: Constipation Enoxaparin Sodium (Lovenox) 115 mg SUB-Q Q12H [facility] Last Admin: 01/26/20 08:48 Dose: Not Given Documented by: Fish Oil (Lovaza) 1 gm PO [facility] Stop: 02/23/20 21:01 Last Admin: 01/25/20 19:53 Dose: 1 gm Documented by: Folic Acid (Folic Acid) 0.4 mg PO [facility] Last Admin: 01/25/20 19:53 Dose: 0.4 mg Documented by: Furosemide (Lasix Tablet) 40 mg PO DAILY [facility] Last Admin: 01/26/20 08:46 Dose: Not Given Documented by: Isosorbide Mononitrate (Imdur) 120 mg PO BID [facility] Stop: 02/23/20 17:01 Last Admin: 01/26/20 08:35 Dose: 120 mg Documented by: Levothyroxine Sodium (Synthroid) 50 mcg PO MoTuWeThFrSa [facility] Last Admin: 01/26/20 05:57 Dose: 50 mcg Documented by: Levothyroxine Sodium (Synthroid) 100 mcg PO Simmons@0630 [facility] Last Admin: 01/25/20 06:12 Dose: 100 mcg Documented by: Metoprolol Tartrate (Lopressor) 50 mg PO Q12HR [facility] Last Admin: 01/26/20 08:35 Dose: 50 mg Documented by: Multivitamins/Minerals (Centrum Silver) 1 tab PO DAILY [facility] Last Admin: 01/26/20 08:37 Dose: 1 tab Documented by: Nitroglycerin (Nitrostat Subl 0.4 Mg (1/150)) 0.4 mg SUBLINGUAL Q5MIN PRN PRN Reason: Chest Pain Linaclotide [Linzess ] 145 Mcg Nonformulary Drug 0 mcg PO DAILY@0730 [facility] Stop: 02/25/20 07:31 Last Admin: 01/26/20 08:46 Dose: Not Given Documented by: Pantoprazole Sodium (Protonix) 40 mg PO DAILY [facility] Stop: 02/24/20 09:01 Last Admin: 01/26/20 08:36 Dose: 40 mg Documented by: Rosuvastatin Calcium (Crestor) 20 mg PO [facility] Last Admin: 01/25/20 19:50 Dose: 20 mg Documented by: Sacubitril/Valsartan (Entresto 49 Mg-51 Mg Tablet) 1 tablet PO BID [facility] Last Admin: 01/26/20 08:35 Dose: 1 tablet Documented by: Sedation/Anesthesia: No previous sedation/anesthesia problems (including family history). [facility] Past Medical History Medical History (Updated 01/25/20 @ 10:30 by Gurvinder Baez MD) Coronary artery disease History of anterior wall [place] in 1993 status post balloon angioplasty of the LAD. He is a patient of Dr. Tri Nuñez. Essential hypertension Gastroesophageal reflux disease Hyperlipidemia Hypothyr
--- NOTE | 2020-01-26 12:50 | P.PCNCC_ITS ---
Cardiac Cath Procedure Note Date of procedure:: 01/26/20 Performing physician:: Antonio Bone MD Indication:: 74-year-old man with previous anterior wall MS and ischemic cardiomyopathy. He presents to the hospital over the weekend with accelerating exertional chest pain. Troponin levels are unremarkable. ECG is unhelpful for ischemia as he is in a paced rhythm through his ICD. Brief clinical history:: As above Procedure Procedure performed:: coronary angiography Sedation/Medication given:: fentanyl 50 mg Versed 2 mg case start time 12:19 p.m. case end time 12:40 p.m. sedation provided by Gricelda Barlow RN, trained observer Access site:: right femoral Estimated blood loss:: 15-20 cc Procedure note:: patient was brought to the cardiac catheterization lab in the postabsorptive state where the right femoral triangle was prepared in the usual fashion. Anesthesia was provided with 1% lidocaine infiltrated locally. Using the modified Seldinger technique the 5 [place] sheath was placed into the right femoral artery after this I used a 5 [place] JR4 catheter to engage inject the right coronary artery. After this I used a 5 [place] FL4 catheter to engage inject the left coronary artery. The cine angiograms were then reviewed and the case was terminated. Patient was taken to the holding area for manual sheath removal. He tolerated the procedure well there were no apparent complications and the patient left the catheterization laboratory technician with no evidence of a groin hematoma. Findings:: Hemodynamics: Central aortic pressure is 118/72. LV was not entered during this procedure left main coronary artery is medium in size and nicely patent the LAD is a small to medium caliber vessel and has mild to moderate diffuse atherosclerosis throughout. There are no high-grade lesions identified however. There is some moderate stenosis of 50-60% at the origin of a trifurcate in diagonal branch there is also about 60% stenosis in the midportion of the LAD. Angiographically this appears unchanged compared to 2018 circumflex is a moderate caliber vessel giving rise to the marginal branches and the circumflex system is angiographically free of disease right coronary artery is moderate to large in caliber. Minute to the posterior circulation and is angiographically free of disease Conclusion:: 1. coronary artery disease with anginal symptoms patient has a small to medium size LAD with [id number] diffuse disease no high-grade lesions which appear to be suitable for PCI. Angiographically the vessel is unchanged in appearance compared to the films from 2018. ongoing medical therapy will be recommended 2. no significant circumflex or right coronary lesion Antonio Bone MD FACC
--- NOTE | 2020-01-26 18:09 | PM.IMPN ---
Progress Note: A&P Assessment and Plan (1) Chest pain: Code(s): R07.9 - Chest pain, unspecified Status: Acute Assessment and Plan: Patient presents with several days of angina with no improvement with nitroglycerin. EKG showing paced rhythm. Troponin negative x3. Cardiology is following along. Patient had LHC today showing LAD with [id number] diffuse disease not suitable for PCI (no change from 2018). Continue medical managment with aspirin, statin, and beta-sunil. Consider Ranexa if persistent CP. Home when okay with Cardiology. (2) Ischemic cardiomyopathy: Code(s): I25.5 - Ischemic cardiomyopathy Status: Acute Assessment and Plan: Clinically compensated. PM/ICD in situ. Continue Entresto, eplerenone, and furosemide. (3) Hypothyroidism: Code(s): E03.9 - Hypothyroidism, unspecified Status: Acute Assessment and Plan: TSH 4.8. Continue levothyroxine (4) Hyperlipidemia: Code(s): E78.5 - Hyperlipidemia, unspecified Status: Acute Assessment and Plan: LFTs within normal limits. Continue Crestor. (5) Essential hypertension: Code(s): I10 - Essential (primary) hypertension Status: Acute Assessment and Plan: Patient's blood pressure was reviewed on 01/25 Blood pressure soft at times. Watch for hypotension. Will continue current medications. (6) Paroxysmal atrial fibrillation: Code(s): I48.0 - Paroxysmal atrial fibrillation Status: Acute Assessment and Plan: Paced rhythm. Continue Amiodarone. Dabigatran on on hold per Dr. Aguila in anticipation of cardiac catheterization. Currently on therapeutic doses of lovenox. Will change to prophylactic dose until Dabigatran resumed. (7) DVT prophylaxis: Code(s): Z29.9 - Encounter for prophylactic measures, unspecified Status: Acute Assessment and Plan: Lovenox. Subjective Date/time seen: 01/26/20 0900 Interval history: 74yo male with iCMP and pAFib here for chest pain. No CP or SOB. Slept well. No jaw pain or arm pain. No n/v. Exam Narrative: Exam Narrative: AF 98/55 61 14 96% ra Gen - NARD Chest - CTA bilaterally, nml RR CV - RRR S1/S2 Abd - Soft, NT/ND, Positive BS Ext - No pedal edema Neuro - Alert and oriented. Nonfocal exam. Psych - Nml mood and affect Skin - Warm and dry Objective Data Vital Signs Vital Signs: Vital Signs - 24 hr 01/25/20 19:53 01/25/20 20:00 01/25/20 22:00 Temperature Pulse Rate 66 60 60 Respiratory Rate Blood Pressure Pulse Oximetry 01/25/20 23:52 01/26/20 00:00 01/26/20 02:00 Temperature 97.1 F L Pulse Rate 94 60 60 Respiratory Rate 18 Blood Pressure 100/60 Pulse Oximetry 98 01/26/20 04:00 01/26/20 06:00 01/26/20 07:40 Temperature 97.5 F L 96.7 F L Pulse Rate 60 60 60 Respiratory Rate 18 12 Blood Pressure 130/68 105/57 L Pulse Oximetry 98 98 01/26/20 08:00 01/26/20 08:35 01/26/20 08:50 Temperature Pulse Rate 61 60 60 Respiratory Rate Blood Pressure Pulse Oximetry 08/24/20 10:00 01/26/20 11:55 01/26/20 13:00 Temperature 97 F L Pulse Rate 60 59 L 60 Respiratory Rate 12 16 Blood Pressure 108/63 104/59 L Pulse Oximetry 96 98 01/26/20 13:10 01/26/20 13:20 01/26/20 13:30 Temperature Pulse Rate 60 60 60 Respiratory Rate 16 16 16 Blood Pressure 107/67 108/67 105/70 Pulse Oximetry 96 94 94 01/26/20 13:40 01/26/20 13:55 01/26/20 14:10 Temperature Pulse Rate 60 60 60 Respiratory Rate 18 12 20 Blood Pressure 115/64 103/64 97/59 L Pulse Oximetry 95 95 96 01/26/20 14:25 01/25
[2020-01-26] MEDS: ROSUVASTATIN 10 MG TABLET 20 MG PO (21:07)
[2020-01-26] MEDS: OMEGA 3 POLYUNSAT FATTY ACIDS 1 GM CAP PO (21:07)
[2020-01-26] MEDS: FOLIC ACID 0.4 MG TABLET PO (21:08)
[2020-01-27] VITALS (11 sets, daily range): BP systolic 98–107; BP diastolic 57–68; PULSE 60–66; RESP 18; TEMP 36–36.3; O2SAT 94–100
[2020-01-27] MEDS: LEVOTHYROXINE SODIUM 50 MCG TABLET PO (06:21)
[2020-01-27] MEDS: AMIODARONE HCL 200 MG TABLET PO (08:24)
[2020-01-27] MEDS: ASPIRIN 81 MG CHEWABLE TABLET PO (08:25)
[2020-01-27] MEDS: ENOXAPARIN 40 MG/0.4 ML SYRINGE SUB-Q (08:25)
[2020-01-27] MEDS: FUROSEMIDE 40 MG TABLET PO (08:26)
[2020-01-27] MEDS: METOPROLOL TARTRATE 50 MG TAB PO (08:27)
[2020-01-27] MEDS: MULTIVITAMINS /C LUTEIN (CENTRUM SILVER) TABLET *BKC 1 TAB PO (08:27)
[2020-01-27] MEDS: PANTOPRAZOLE 40 MG TABLET PO (08:27)
[2020-01-27] MEDS: ISOSORBIDE MONONITRATE 60 MG TAB.ER.24H 120 MG PO (08:28)
[2020-01-27] MEDS: SACUBITRIL/VALSARTAN 49-51 MG TABLET 1 TABLET PO (08:29)
--- NOTE | 2020-01-27 13:11 | PM.PNCARD ---
Progress Note: A&P Assessment and Plan (1) Coronary artery disease: Code(s): I25.10 - Atherosclerotic heart disease of [place] coronary artery without angina pectoris Status: Acute Assessment and Plan: patient was CAD, progressive exertional angina. Cardiac catheterization did not show any significant stenosis. Continue medical therapy. Can increase metoprolol to: 75 mg b.i.d.. Patient was tried on Ranexa in the past but it caused constipation; still has some samples at home a will retry it. Other options include a trial of amlodipine. I am not sure if there is any place in [place] that still does enhanced external counterpulsation but that is also a possibility. Recommend continuing exercise, preferably with cardiac rehab, which may also help increase his endurance. Okay for discharge Has FU appt in Feb. (2) Ischemic cardiomyopathy: Code(s): I25.5 - Ischemic cardiomyopathy Status: Acute Assessment and Plan: history of ischemic cardiomyopathy and CHF, stable. (3) Paroxysmal atrial fibrillation: Code(s): I48.0 - Paroxysmal atrial fibrillation Status: Acute Assessment and Plan: History of a flutter, status post cardioversion in December, remaining in NSR. Subjective Date/time seen: admitted with progressive angina. History of CABG in ischemic cardiomyopathy, PAF. 01/27/20 13:11 Date of service: 01/27/2020 Cardiac catheterization yesterday did not show any focal stenosis. Left anterior descending was somewhat small caliber with some diffuse disease. Severe LV dysfunction. Medical therapy recommended. No further angina since hospitalized. Review of Systems Constitutional: Constitutional: Reports fatigue ENT: Denies epistaxis Cardiovascular: Cardiovascular: Denies chest pain and Denies pedal edema Respiratory: Respiratory: Denies dyspnea Gastrointestinal: Gastrointestinal: Denies abdominal pain Musculoskeletal: Musculoskeletal: Denies back pain Integumentary/Breasts: Skin/Breast: Denies wounds Neurologic: Reports system reviewed and no additional complaints, except as documented Psychiatric: Psychiatric: Reports no additional psychiatric complaints Exam Const: General: no acute distress HENMT: Mouth: Yes moist mucous membranes Eyes: EOM: EOMs intact bilaterally Neck: Neck: supple Resp: Auscultation: clear to auscultation bilaterally Cardio: Rate: regular rate Rhythm: regular rhythm GI: Inspection: non-distended Neuro: Speech: normal speech Motor exam (neuro): Normal motor muscle tone present throughout Extrem: General: no pedal edema Psych: Mental Status: mental status grossly normal Affect: normal affect Objective Data Vital Signs Vital Signs: Vital Signs - 24 hr 01/26/20 13:20 01/26/20 13:30 01/26/20 13:40 Temperature Pulse Rate 60 60 60 Respiratory Rate 16 16 18 Blood Pressure 108/67 105/70 115/64 Pulse Oximetry 94 94 95 01/26/20 13:55 01/26/20 14:10 01/26/20 14:25 Temperature Pulse Rate 60 60 60 Respiratory Rate 12 20 15 Blood Pressure 103/64 97/59 L 109/61 Pulse Oximetry 95 96 95 01/26/20 14:40 01/26/20 14:57 01/26/20 15:57 Temperature 96.7 F L 96.4 F L Pulse Rate 60 60 59 L Respiratory Rate 14 14 16 Blood Pressure 94/69 L 100/60 95/55 L Pulse Oximetry 96 95 94 01/26/20 16:00 01/26/20 16:42 01/26/20 17:00 Temperature 96.4 F L 96.5 F L Pulse Rate 60 60 57 L Respiratory Rate 14 14 Blood Pressure 98/55 L 104/63 Pulse Oximetry 96 96 01/26/20 18:00 01/26/20 18:03 01/26/20 19:56 Temperature 97 F L 97.9 F Pulse Rate 59 L 61 59 L Respiratory Rate 16 18 Blood Pressure 108/63 116/67 Pulse Oximetry 96 99 01/26/20 20:00 01/26/20 21:08 01/26/20 22:00 Temperature Pulse Rate 60 65 60 Respiratory Rate Blood Pressure Pulse Oximetry 01/26/20 23:31 01/27/20 00:00 01/27/20 01:59 Temperature 97.9 F Pulse Rate 91 60 60 Respiratory Rate 20 Blood P
--- NOTE | 2020-01-27 14:57 | PC.NURSE ---
Discharged home- instructions discussed and pt acknowledged understanding- Right groin dressing changed and bandaid applied- written instructions on wound care and activity given to pt . Right groin site WNL- Home via w/c accompanied by staff to vehicle driven by
--- NOTE | 2020-01-27 18:37 | PM.DS ---
DS: Admitting Diagnosis Admitting Diagnosis Admitting Diagnosis: Chest pain. DS: Discharge Diagnosis Discharge Diagnosis (1) Chest pain: Code(s): R07.9 - Chest pain, unspecified Status: Acute Assessment and Plan: Patient presents with several days of angina, with no improvement with nitroglycerin. EKG showing paced rhythm. troponin negative x3. cardiac catheterization 01/25 no change from 2018 with [id number] LAD disease 50-60% occlusion with no high-grade stenosis. Continue aspirin, statin, and beta-sunil Increased to 75 b.i.d. trial of Ranexa (2) Ischemic cardiomyopathy: Code(s): I25.5 - Ischemic cardiomyopathy Status: Acute Assessment and Plan: Clinically compensated. PM/ICD in situ. Continue Entresto, eplerenone, and furosemide. (3) Hypothyroidism: Code(s): E03.9 - Hypothyroidism, unspecified Status: Acute Assessment and Plan: TSH 4.8. Continue levothyroxine (4) Hyperlipidemia: Code(s): E78.5 - Hyperlipidemia, unspecified Status: Acute Assessment and Plan: LFTs within normal limits. Continue Crestor. (5) Essential hypertension: Code(s): I10 - Essential (primary) hypertension Status: Acute Assessment and Plan: Patient's blood pressure was reviewed on 01/26 Blood pressure remains well controlled. Will continue current medications. (6) Paroxysmal atrial fibrillation: Code(s): I48.0 - Paroxysmal atrial fibrillation Status: Acute Assessment and Plan: Paced rhythm. Continue Amiodarone. Dabigatran held for catheterization and will restart 01/29. (7) DVT prophylaxis: Code(s): Z29.9 - Encounter for prophylactic measures, unspecified Status: Acute Assessment and Plan: Lovenox while here DS: Summary Hospital Course Hospital Course: 74-year-old white male with known coronary disease ischemic cardiomyopathy admitted with chest pain. Troponins negative x3. Repeat cardiac catheterization was unchanged from 2018 with 50-60% lesions in the LAD with no high-grade stenosis. Beta-sunil was increased to 75 b.i.d. and Ranexa was added. Will follow-up with cardiology 3-4 weeks Time Spent with Patient Time attestation: Total time spent providing and/or coordinating discharge services: 35 minutes Exam Narrative: Exam Narrative: condition on discharge blood pressure 106/68 pulse 60 afebrile lungs clear CV regular rate rhythm abdomen is soft nontender extremities without edema of and about with no chest discomfort Discharge Plan Discharge Attending physician on discharge: Bernard Taylor Consulting providers: Edinson Aguila ; Gurvinder Baez Discharging Clinician: Bernard Taylor Patient Disposition: Home, Self-Care Activity: other - see discharge instructions Diet: low sodium and low cholesterol Wound Care Instructions: follow printed instructions Discharge Instructions: Resume the samples of Ranexa you have at home, 500 mg twice a day. Increase metoprolol to: 50 mg 1 and 1/2 tablets Twice daily. Consider cardiac rehab to help improve your and your endurance. Keep appt w/ Dr. Nuñez's office in February. Patient Instructions: Antibiotic Form, Dabigatran (By mouth), Angina (GEN), Heart Failure (GEN) Stand Alone Forms: General Discharge Information Follow-up/Referrals: Abraham Leon MD [Primary Care Provider] - 2 Weeks Edinson Aguila MD [Physician] - 4 Weeks Discharge Medications: New metoprolol tartrate 25 mg Tablet 75 mg PO Q12HR 30 Days Qty: 180 RF: 0 ranolazine [Ranexa] 50
== END 2020-01-27 14:55 | disposition home or self-care (01) | DRG 287 ==
LOC: ANHED 09:08 → ANHIMU 13:10
PROVIDERS: Physician Assistant; Specialist; Admitting Provider Internal Medicine; Emergency Provider Emergency Medicine; PCP Internal Medicine; Visit Provider Internal Medicine
PROC: 4A023N7 Measurement of Cardiac Sampling and Pressure, Left Heart, Percutaneous Approach (ICD-10-PCS; CPT 93454; principal; 2020-01-26 11:30)
DX: I25.110 Atherosclerotic heart disease of native coronary artery with unstable angina pectoris (principal); I48.92 Unspecified atrial flutter; I25.5 Ischemic cardiomyopathy; I11.0 Hypertensive heart disease with heart failure; I50.9 Heart failure, unspecified; I44.7 Left bundle-branch block, unspecified; I48.0 Paroxysmal atrial fibrillation; E03.9 Hypothyroidism, unspecified; E78.5 Hyperlipidemia, unspecified; K21.9 Gastro-esophageal reflux disease without esophagitis; I25.2 Old myocardial infarction; Z95.5 Presence of coronary angioplasty implant and graft; Z90.49 Acquired absence of other specified parts of digestive tract; Z95.810 Presence of automatic (implantable) cardiac defibrillator; Z79.01 Long term (current) use of anticoagulants; Z85.828 Personal history of other malignant neoplasm of skin
CPT/HCPCS: 36415; 71046; 80048; 80053; 83735; 83880; 84439; 84443; 84480; 84484; 85025; 85027; 85610; 85730; 93005; 93454; 99285; A9270; C1887; C1894; J1644; J1650; J2250; J3010; J7040

== ENCOUNTER 2020-04-19 11:12 | Outpatient (CLI) | payer MEDICARE, SELFPAY ==
[2020-04-19 13:40] LABS: Free T4 Free Thyroxine 1.35 ng/mL (0.78-2.19)
[2020-04-19 17:48] LABS: Free T4 Free Thyroxine Reflex 1.46 ng/dL (0.78-2.19)
[2020-04-19 18:34] LABS: Total Triiodothyronine (T3) 1.33 NG/ML (0.97-1.69)
== END 2020-04-19 11:13 | disposition home or self-care (01) ==
PROVIDERS: PCP Internal Medicine; Visit Provider Nurse Practitioner Adult Health
DX: Z79.899 Other long term (current) drug therapy (principal)
CPT/HCPCS: 36415; 84439; 84443; 84480

== ENCOUNTER 2020-06-19 07:01 | Outpatient (NON) | payer MEDICARE, SELFPAY ==
[2020-06-19 21:49] LABS: SARS-CoV-2 RNA PCR Negative
== END 2020-06-19 07:02 ==
LOC: ANHCOVIDDT 07:01
PROVIDERS: PCP Internal Medicine; Visit Provider Internal Medicine
DX: Z20.822 Contact with and (suspected) exposure to COVID-19 (principal)
CPT/HCPCS: C9803; U0003; U0005

== ENCOUNTER 2020-07-05 08:05 | Outpatient (CLI) | payer MEDICARE, SELFPAY ==
--- NOTE | ~2020-07-05 | CT_ITS ---
EXAMINATION: CT brain wo con DATE: 07/05/2020 08:40 INDICATION: Headache. Fall 2 weeks ago; did not strike head. TECHNIQUE: Computed tomography (CT) of the head was performed without intravenous contrast. The mA wa s adjusted according to patient size. Iterative reconstruction technique was employed. Exam dose: 68 1.00 mGy-cm total exam DLP. COMPARISON: 12/02/2017 CT brain FINDINGS: No intracranial mass lesion or hemorrhage or cerebrovascular accident is detected. There is moderate cerebellar and cerebral cortical atrophy. No midline shift or mass effect. Normal ventricular size. No subdural or epidural hematoma. There is partial opacification of the right ethmoid air cells. There is moderate mucoperiosteal thick ening of the right frontal sinus. The included paranasal sinuses are otherwise unremarkable. The mastoid air cells are normally developed and aerated. No fracture or bone destruction of the cranial vault. IMPRESSION: No acute intracranial finding Reviewed, dictated and finalized at [facility]. Reviewed, dictated and finalized at [facility]. 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
== END 2020-07-05 08:06 | disposition home or self-care (01) ==
LOC: ANHIMG 08:07
PROVIDERS: PCP Internal Medicine; Visit Provider Internal Medicine
DX: R51.9 Headache, unspecified (principal)
CPT/HCPCS: 70450

== ENCOUNTER 2020-09-07 08:40 | Outpatient (CLI) | payer MEDICARE, SELFPAY ==
--- NOTE | ~2020-09-07 | XR_ITS ---
EXAMINATION: XR chest 2V DATE: 09/07/2020 09:21 INDICATION: Cardiomyopathy. TECHNIQUE: Frontal and lateral views of the chest were obtained. COMPARISON: Chest 2 views 01/24/2020 FINDINGS: The chest demonstrates clear lungs without pneumonia, pleural effusion, or pneumothorax. Th e heart size is normal. There is a left chest wall pacer with leads in the right atrium and right raquel tricle. There is mild chronic anterior wedging of multiple vertebral bodies. There are surgical clips in the abdomen. IMPRESSION: 1. No acute cardiopulmonary disease. Reviewed, dictated and finalized at [facility].
[2020-09-07 09:30] LABS: Basophils Percent Auto 0.7 % (0.2-1.2); Eosinophils Absolute Auto 0.2 K/mm3 (0-0.3); Eosinophils Percent Auto 3.6 % (0-4.4); Hematocrit 39.8 % (42.0-52.0); Hemoglobin 13.1 g/dL (14.0-18.0); Immature Granulocyte Absolute 0.03 K/mm3 (0.00-0.031); Immature Granulocyte Percent A 0.7 % (0-0.5); Lymphocytes Absolute Auto 0.99 K/mm3 (0.9-3.2); Lymphocytes Percent Auto 23.5 % (18.3-44.2); Mean Corpuscular HGB Conc 32.9 g/dl (32-36); Mean Corpuscular Hemoglobin 30.6 pg (26-34); Mean Platelet Volume 9.9 fl (7.4-10.4); Monocytes Absolute Auto 0.5 K/mm3 (0.1-0.6); Monocytes Percent Auto 11.8 % (2.6-8.5); Neutrophils Absolute Auto 2.5 K/mm3 (1.3-6.7); Neutrophils Percent Auto 59.7 % (45.5-73.1); Platelet Count Result 163 k/mm3 (150-375); Red Blood Count 4.28 M/mm3 (4.6-6.20); Red Cell Distribution Width 13.5 % (11.5-14.5); White Blood Count 4.2 K/mm3 (4.5-10.0)
[2020-09-07 09:59] LABS: Alanine Aminotransferase 53 U/L (4-50); Albumin Level 4.2 g/dL (3.5-5.1); Alkaline Phosphatase 45 U/L (38-126); Anion Gap 3 mmol/L (8-16); Aspartate Amino Transferase 47 U/L (17-59); Bilirubin,Total 0.5 mg/dL (0.2-1.3); Blood Urea Nitrogen 18 mg/dL (9-20); Calcium 8.7 mg/dL (8.4-10.2); Carbon Dioxide 33 mmol/L (22-30); Chloride 106 mmol/L (98-107); Estimated Glomerular Filt Rate 59; Glucose 109 mg/dL (75-110); Potassium 4.4 mmol/L (3.4-5.0); Sodium 142 mmol/L (137-145)
== END 2020-09-07 08:41 | disposition home or self-care (01) ==
PROVIDERS: PCP Internal Medicine; Visit Provider Internal Medicine Cardiovascular Disease
DX: Z51.81 Encounter for therapeutic drug level monitoring (principal); Z79.899 Other long term (current) drug therapy; Z79.01 Long term (current) use of anticoagulants; I25.118 Atherosclerotic heart disease of native coronary artery with other forms of angina pectoris
CPT/HCPCS: 36415; 71046; 80053; 85025

== ENCOUNTER 2020-12-16 09:00 | Outpatient (RCR) | payer MEDICARE, SELFPAY ==
[2020-09-24 08:47] VITALS: PULSE 65
--- NOTE | 2020-10-11 09:25 | PCCPR ---
Patient states he'll be absent on Sunday, October 13 to take his to her doctor's appointment.
== END 2020-12-16 19:30 | disposition home or self-care (01) ==
LOC: ANHCPREHAB 09:00
PROVIDERS: PCP Internal Medicine; Visit Provider Internal Medicine Cardiovascular Disease
DX: I20.8 Other forms of angina pectoris (principal)
CPT/HCPCS: 93798

== ENCOUNTER 2021-01-04 12:00 | Emergency (ER) | payer MEDICARE, SELFPAY ==
--- NOTE | ~2021-01-04 | CT_ITS ---
EXAMINATION: CT abdomen pelvis w con DATE: 01/04/2021 12:58 INDICATION: Generalized abdominal pain TECHNIQUE: Computed tomography (CT) of the abdomen and pelvis was performed with 100 cc Omnipaque 350 intravenous contrast. Automated exposure control and iterative reconstruction technique were employe d. Exam dose: 1448.06 mGy-cm total exam DLP. COMPARISON: 10/14/2018 CT abdomen pelvis FINDINGS: The lung bases are clear of infiltrate or consolidation. Heart size is within normal limits. Right atrial and right ventricular pacemaker leads are noted. No pericardial or pleural effusion. Status post cholecystectomy. No hepatic, splenic, pancreatic, adrenal space-occupying mass lesion or bile duct or pancreatic duct dilatation. 12 mm right renal cyst, several up to 2.6 cm left renal cysts. No urinary tract calculus or hydroureteronephrosis. The urinary bladder is unremarkable. Prostate vince cifications. Small fat-containing inguinal hernias. Small fat-containing umbilical hernia. Small sliding hiatal hernia. Normal appendix. There are nondilated fluid containing small bowel spinal segments and scattered small bowel air-fluid levels. Abnormal fluid levels are noted in the ascending, transverse and descending colon. There is a promine nt amount of fecal material in the left colon and particularly rectum. No bowel obstruction is eviden t. There is atherosclerotic calcification of the abdominal aorta and at the origins of the celiac, super ior mesenteric, renal and inferior mesenteric arteries. No abdominal aortic aneurysm. No intraperiton eal or retroperitoneal or pelvic mass lesion or adenopathy or ascites. Diffuse osteopenia. Degenerative changes of the thoracic and lumbar spine. Bilateral hip osteoarthrit is. No suspicious osteolytic or osteoblastic lesions are identified. IMPRESSION: Nondilated fluid containing small bowel segments with scattered small bowel air-fluid le vels and fluid within the colon, which may be due to enterocolitis Prominent amount of fecal material in the left colon and particularly in the rectum. No bowel obstruc tion or free air Normal appendix Status post cholecystectomy Bilateral renal cysts Reviewed, dictated and finalized at [facility]. Reviewed, dictated and finalized at [facility]. IMPRESSION: Nondilated fluid containing small bowel segments with scattered sm all bowel air-fluid levels and fluid within the colon, which may be due to ente rocolitis Prominent amount of fecal material in the left colon and particularly in the re ctum. No bowel obstruction or free air Normal appendix Status post cholecystectomy Bilateral renal cysts
[2021-01-04 12:07] VITALS: BP 125/72; PULSE 60; RESP 20; TEMP 37; O2SAT 97
[2021-01-04 12:22] LABS: Basophils Percent Auto 0.8 % (0.2-1.2); Eosinophils Absolute Auto 0.2 K/mm3 (0-0.3); Eosinophils Percent Auto 3.7 % (0-4.4); Hematocrit 42.7 % (42.0-52.0); Hemoglobin 14.2 g/dL (14.0-18.0); Immature Granulocyte Absolute 0.01 K/mm3 (0.00-0.031); Immature Granulocyte Percent A 0.2 % (0-0.5); Lymphocytes Absolute Auto 1.08 K/mm3 (0.9-3.2); Lymphocytes Percent Auto 22.2 % (18.3-44.2); Mean Corpuscular HGB Conc 33.3 g/dl (32-36); Mean Corpuscular Hemoglobin 30.3 pg (26-34); Mean Corpuscular Volume 91.2 fl (80-100); Mean Platelet Volume 10.1 fl (7.4-10.4); Monocytes Absolute Auto 0.7 K/mm3 (0.1-0.6); Neutrophils Absolute Auto 2.9 K/mm3 (1.3-6.7); Neutrophils Percent Auto 59.1 % (45.5-73.1); Platelet Count Result 165 k/mm3 (150-375); Red Blood Count 4.68 M/mm3 (4.6-6.20); White Blood Count 4.9 K/mm3 (4.5-10.0)
[2021-01-04 12:35] LABS: Alanine Aminotransferase 40 U/L (4-50); Albumin Level 4.5 g/dL (3.5-5.1); Alkaline Phosphatase 58 U/L (38-126); Anion Gap 7 mmol/L (8-16); Aspartate Amino Transferase 44 U/L (17-59); Bilirubin,Total 0.5 mg/dL (0.2-1.3); Blood Urea Nitrogen 16 mg/dL (9-20); Calcium 9.2 mg/dL (8.4-10.2); Carbon Dioxide 27 mmol/L (22-30); Chloride 104 mmol/L (98-107); Estimated Glomerular Filt Rate > 60; Glucose 118 mg/dL (65-110); Lipase 80 U/L (23-300); Potassium 4.2 mmol/L (3.4-5.0); Sodium 138 mmol/L (137-145)
--- NOTE | 2021-01-04 12:52 | ED.ABDPAIN ---
HPI - Abdominal Pain General Chief Complaint: Abdominal Pain Stated Complaint: Constipation,Urinary retention Time Seen by Provider: 01/04/21 12:10 History of Present Illness HPI narrative: 75-year-old male presents with constipation. Reports he has had a difficulty with bowel movements for a while however is been getting worse over the past week. Reports he had a self disimpaction on night as his last bowel movement. Also had increasing abdominal pain makes note that in the lower abdomen. Denies any nausea vomiting denies prior history of small bowel obstruction Related Data Home Medications Medication Instructions Recorded Confirmed Adults Multivitamin 1 tablet PO DAILY 12/30/19 09/24/20 Entresto 49 - 51 tablet PO BID 12/30/19 09/24/20 Fish Oil 1 cap PO HS 12/30/19 09/24/20 Linzess 145 mcg PO DAILY 12/30/19 09/24/20 Pradaxa 150 mg PO BID 12/30/19 09/24/20 amiodarone 200 mg PO BID 12/30/19 09/24/20 aspirin 81 mg PO HS 12/30/19 09/24/20 docusate sodium [Colace] 250 mg PO HS PRN 12/30/19 09/24/20 eplerenone 25 mg PO HS 12/30/19 09/24/20 folic acid 0.4 mg PO HS 12/30/19 09/24/20 furosemide 40 mg PO DAILY 12/30/19 09/24/20 isosorbide mononitrate 120 mg PO BID 12/30/19 09/24/20 nitroglycerin 0.4 mg SUBLINGUAL Q5MIN PRN 12/30/19 09/24/20 omeprazole 40 mg PO DAILY 12/30/19 09/24/20 rosuvastatin 20 mg PO HS 12/30/19 09/24/20 gabapentin 300 mg PO TID PRN 09/24/20 09/24/20 levothyroxine 75 mcg PO DAILY 09/24/20 09/24/20 metoprolol tartrate 50 mg PO TID 09/24/20 09/24/20 Allergies Allergy/AdvReac Type Severity Reaction Status Date / Time Sulfa (Sulfonamide Allergy Intermediate Rash Verified 01/04/21 12:10 Antibiotics) Review of Systems Review of Systems: CONSTITUTIONAL: Denies fever, chills, or sweats. EYES: Denies visual changes, redness, or discharge. ENT: Denies rhinorrhea, congestion, sore throat, or otalgia. CARDIOVASCULAR: Denies chest pain, palpitations, or edema. RESPIRATORY: Denies cough or dyspnea. GASTROINTESTINAL: Denies a nausea, vomiting, or diarrhea. GENITOURINARY: Denies dysuria or hematuria. SKIN: Denies rash or itching. MUSCULOSKELETAL: Denies back pain, joint pain, or myalgia. NEUROLOGIC: Denies headache, numbness, dizziness, or weakness. PSYCHIATRIC: Denies anxiety or depression. All systems reviewed & are unremarkable except as noted in HPI and below PMFSH Past Medical History Medical History Coronary artery disease History of anterior wall [place] in 1993 status post balloon angioplasty of the LAD. He is a patient of Dr. Tri Nuñez. Essential hypertension Gastroesophageal reflux disease Hyperlipidemia Hypothyroidism Ischemic cardiomyopathy Last ejection fraction was approximately 20%. Status post PM/ICD insertion. Left bundle branch block Paroxysmal atrial fibrillation History of several cardioversions, on long-term anticoagulation. Paroxysmal atrial flutter Status post DC cardioversion on 12/31/2019. 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 Surgical History Surgical History History of cardiac catheterization History of cholecystectomy History of squamous cell carcinoma excision (~05/2016) Excised from the right conchal bowl with FTSG per Dr. Hsu. Presence of combination internal cardiac defibrillator (ICD) and pacemaker [employer] PM/ICD placed in 2000 with history of generator changed x2. Family History Family History (Updated 09/24/20 @ 08:31 by Cally Haynes RN) Father Acute myocardial infarction Hypertension Coronary artery disease Cerebrovascular accident Sibling Hypertension Coronary artery disease Acute myocardial infarction Sibling Acute myocardial infarction Coronary artery disease Mother Cerebrovascular accident Cancer Social History Social History (Updated 01/24/20 @ 23:38 by Sara Banerjee
--- NOTE | 2021-01-04 13:55 | PC.NURSE ---
patient states he went to the bathroom and was able to empty his bowels and bladder
[2021-01-04 14:23] VITALS: BP 122/78; PULSE 78; RESP 18; O2SAT 99
== END 2021-01-04 14:24 | disposition home or self-care (01) ==
PROVIDERS: Emergency Provider Emergency Medicine; PCP Internal Medicine
DX: K59.00 Constipation, unspecified (principal); I25.10 Atherosclerotic heart disease of native coronary artery without angina pectoris; I10 Essential (primary) hypertension; K21.9 Gastro-esophageal reflux disease without esophagitis; E78.5 Hyperlipidemia, unspecified; E03.9 Hypothyroidism, unspecified; I48.91 Unspecified atrial fibrillation
CPT/HCPCS: 36415; 74177; 80053; 83690; 85025; 99284; Q9967

== ENCOUNTER 2021-02-08 11:21 | Outpatient (CLI) | payer MEDICARE, SELFPAY ==
--- NOTE | ~2021-02-08 | XR_ITS ---
EXAMINATION: XR abdomen obstructive series EXAM DATE: 02/08/2021 12:08 INDICATION: overall pain and distention . TECHNIQUE: Frontal upright projection of the upper abdomen, frontal projection of the lower abdomen f or interpretation. Comparison is made to prior examination from 05/29/2019. FINDINGS: There are cholecystectomy clips. Pacemaker/AICD leads. There is expected amount of colonic stool and gas. No small bowel dilation, nonobstructive bowel gas pattern. There are no suspiciou s calcifications identified. There is no organomegaly suspected. There are bony degenerative sanders es. There is no free intraperitoneal air. The lung bases are clear. IMPRESSION: Unremarkable abdomen x-ray exam. Reviewed, dictated and finalized at [facility].
[2021-02-08 11:35] LABS: Basophils Absolute Auto 0.02 K/mm3 (0.00-0.10); Basophils Percent Auto 0.4 % (0.0-1.0); Eosinophils Absolute Auto 0.09 K/mm3 (0.02-0.50); Hematocrit 42.7 % (37.0-46.0); Hemoglobin 14.6 g/dL (12.4-15.3); Immature Granulocyte Absolute 0.02 K/mm3 (0.00-0.00); Immature Granulocyte Percent A 0.4 % (0.0-0.0); Lymphocytes Absolute Auto 0.96 K/mm3 (1.10-4.50); Lymphocytes Percent Auto 21.3 % (18.0-42.0); Mean Corpuscular HGB Conc 34.2 g/dL (32.0-36.0); Mean Corpuscular Hemoglobin 31.5 pg (27.0-31.0); Mean Corpuscular Volume 92.2 fL (78.0-102.0); Monocytes Absolute Auto 0.52 K/mm3 (0.10-0.90); Monocytes Percent Auto 11.6 % (2.0-11.0); Neutrophils Absolute Auto 2.9 K/mm3 (1.7-7.2); Neutrophils Percent Auto 64.3 % (50.0-70.0); Platelet Count Result 159 K/mm3 (150-420); Red Blood Count 4.63 M/mm3 (4.70-6.10); Red Cell Distribution Width 13.8 % (11.6-14.4); White Blood Count 4.5 K/mm3 (4.8-10.8)
[2021-02-08 11:58] LABS: Appearance Urine Clear (Clear); Bilirubin Urine Negative (Negative); Color Urine Light Yellow (Yellow); Glucose Urine UA Negative (Negative); Ketones Urine Negative (Negative); Leukocyte Esterase Ur Negative (Negative); Nitrate Urine Negative (Negative); Protein Urine Negative (Negative); Specific Grav Ur <= 1.005 (1.010-1.020); Urobilinogen Urine 0.2 mg/dL (0.2-1.0)
[2021-02-08 12:24] LABS: Alanine Aminotransferase 82 U/L (16-63); Alkaline Phosphatase 58 U/L (46-116); Amylase 35 U/L (25-115); Anion Gap 7 mmol/L (8-16); Aspartate Amino Transferase 48 U/L (15-37); Bilirubin,Total 0.7 mg/dL (0.00-1.00); Blood Urea Nitrogen 13 mg/dL (7-18); Carbon Dioxide 31 mmol/L (21-32); Chloride 103 mmol/L (98-108); Estimated Glomerular Filt Rate 55; Ferritin 82 ng/mL (26-388); Free T3 1.59 pg/mL (2.18-3.98); Free T4 Free Thyroxine 1.42 ng/dL (0.76-1.46); Glucose 111 mg/dL (70-99); Lipase 46 U/L (73-393); Magnesium 2.3 mg/dL (1.8-2.4); Osmolality Calculated 293 mOsm/kg (285-295); Potassium 3.9 mmol/L (3.5-5.1); Prostate Specific Antigen 0.9 ng/mL (< OR = 4.0); Sodium 141 mmol/L (136-145); Thyroid Stimulating Hormone 2.81 uIU/mL (0.36-3.74); Total Protein 7.3 g/dL (6.4-8.2)
[2021-02-08 12:28] LABS: Add Urine Microscopic? YES; Bacteria Urine None seen /hpf; Blood Urine Trace-lysed (Negative); RBC Urine None seen /hpf (0-2); Squamous Epithelial Cell Urine Rare /hpf (Few); WBC Urine None seen /hpf (0-3)
[2021-02-08 12:37] LABS: Iron 108 ug/dL (65-175); Percent Iron Saturation 30 % (12-57)
--- NOTE | 2021-02-08 13:30 | PC.NURSE ---
Pt to room 201 amb per self. A&OX3. Oriented to room. Instructed on fleets enema procedure and reason for administration. Pt voices understanding and requests to give fleets per self in the bathroom. Pt to BR with fleets, instructed to call when finished.
--- NOTE | 2021-02-08 13:48 | PC.NURSE ---
Pt unable to retain first enema. Second enema given by nurse with patient lying in bed on left side. Pt tolerated well, retaining fluid. Reminded to hold as long as possible before trying to have a BM. Instructed to use call light when finished.
--- NOTE | 2021-02-08 14:09 | PC.NURSE ---
Pt passed second enema with large amount brown thick liquid and formed BM. Pt states he feels much better. Pt has no complaints. Discharged to home per self ambulatory.
== END 2021-02-08 11:22 | disposition home or self-care (01) ==
LOC: CHSLAB 11:24 → CHSTREATRM 13:20
PROVIDERS: PCP Internal Medicine; Visit Provider Internal Medicine
DX: K59.00 Constipation, unspecified (principal); R30.0 Dysuria; D64.9 Anemia, unspecified; Z12.5 Encounter for screening for malignant neoplasm of prostate
CPT/HCPCS: 36415; 74019; 80053; 81001; 82150; 82728; 83540; 83550; 83690; 83735; 84153; 84439; 84443; 84481; 85025; 87086; 99211; G0103; G0463

== ENCOUNTER 2021-03-17 13:50 | Outpatient (CLI) | payer MEDICARE, SELFPAY ==
[2021-03-17 14:49] LABS: Alanine Aminotransferase 65 U/L (4-50); Albumin Level 4.3 g/dL (3.5-5.1); Alkaline Phosphatase 68 U/L (38-126); Anion Gap 8 mmol/L (8-16); Aspartate Amino Transferase 62 U/L (17-59); Bilirubin,Total 0.6 mg/dL (0.2-1.3); Blood Urea Nitrogen 21 mg/dL (9-20); Calcium 8.9 mg/dL (8.4-10.2); Carbon Dioxide 29 mmol/L (22-30); Chloride 105 mmol/L (98-107); Estimated Glomerular Filt Rate 59; Glucose 109 mg/dL (65-110); Potassium 4.5 mmol/L (3.4-5.0); Sodium 142 mmol/L (137-145)
== END 2021-03-17 13:51 | disposition home or self-care (01) ==
PROVIDERS: PCP Internal Medicine; Referring Provider Internal Medicine Cardiovascular Disease; Visit Provider Internal Medicine
DX: R94.5 Abnormal results of liver function studies (principal)
CPT/HCPCS: 36415; 80053

== ENCOUNTER 2021-04-05 12:58 | Outpatient (CLI) | payer MEDICARE, SELFPAY ==
--- NOTE | ~2021-04-05 | CT_ITS ---
EXAMINATION: CT thoracic lumbar wo con EXAM DATE: 04/05/2021 13:50 INDICATION: Thoracic Lumbar Pain low T-spine/upper L-spine pain -more RT sided- x1mo. TECHNIQUE: Spiral CT thoracolumbar spine was performed without contrast. Axial, coronal and sagittal images of the thoracic spine were reviewed. Axial, coronal and sagittal images of the lumbar spine we re reviewed. The dose-length product (DLP) for this examination was 1986.16 mGy-cm. The exposure was tailored according to patient size (auto mA exposure control), and iterative reconstruction (ASIR) w as used as additional dose reduction technique. There is a prior lumbar CT from 2012 for comparison. FINDINGS: THORACIC SPINE: There is mild diffuse thoracic facet arthropathy. There is thoracic kyphosis. Mild to moderate mid and lower thoracic disc disease with small to moderate-sized bridging endplate osteophy shree. Mild loss of mid thoracic vertebral body heights more anteriorly than posteriorly. No acute frac ture line is identified. The vertebral bodies are aligned in the AP dimension. No evidence of signifi cant central canal or neural foraminal stenosis. Minimal mid thoracic dextroscoliosis. Cardiac pacema ker/AICD device. Paraspinal soft tissue is unremarkable. LUMBAR SPINE: Intact sacroiliac joints, no evidence of insufficiency fracture. There is no evidence of acute lumbar fracture. There is no disc space widening or traumatic vertebral body subluxation burrell spected. Paraspinal soft tissue is unremarkable. There is moderate disc disease L-1-2, L2-3 and L5- S1 with vacuum disc phenomenon. The vertebral bodies are aligned in the AP dimension. Mild diffuse lo ss of vertebral body heights without acute fracture line identified. Small to moderate-sized lumbar e ndplate osteophytes. A detailed level by level evaluation of spondylosis can be added as addendum if requested. Liver measures over 100 Hounsfield units, could be from amiodarone treatment, please clini nery correlate. Level by level evaluation: T12-L1: There is a minimal diffuse disc bulge. Facet arthropathy: Mild. Neural foraminal stenosis: No stenosis. Central canal stenosis: No stenosis. L1-L2: There is a mild diffuse disc bulge. Facet arthropathy: Mild. Neural foraminal stenosis: No stenosis. Central canal stenosis: No stenosis. L2-L3: There is a mild to moderate diffuse disc bulge. Facet arthropathy: Mild to moderate. Neural foraminal stenosis: Mild bilateral. Central canal stenosis: Mild. L3-L4: There is a mild to moderate diffuse disc bulge. Facet arthropathy: Mild to moderate. Neural foraminal stenosis: Minimal bilateral. Central canal stenosis: Mild. L4-L5: There is a mild to moderate diffuse disc bulge. Facet arthropathy: Moderate. Neural foraminal stenosis: Mild bilateral. Central canal stenosis: Mild to moderate. L5-S1: There is a mild to moderate diffuse disc bulge. Facet arthropathy: Moderate. Neural foraminal stenosis: Mild to moderate bilateral. Central canal stenosis: Mild. Mild progression lumbar spondylosis compared to 2013. IMPRESSION: 1. Moderate lumbar spondylosis. 2. Mild to moderate thoracic spondylosis. 3. Hyperdense liver. Amiodarone related? Reviewed, dictated and finalized at [facility].
== END 2021-04-05 12:59 | disposition home or self-care (01) ==
LOC: CHSIMG 13:00
PROVIDERS: PCP Internal Medicine; Visit Provider Internal Medicine
DX: M54.6 Pain in thoracic spine (principal); M54.50 Low back pain, unspecified
CPT/HCPCS: 72128; 72131

== ENCOUNTER 2021-05-23 14:19 | Outpatient (CLI) | payer MEDICARE, SELFPAY ==
--- NOTE | ~2021-05-23 | XR_ITS ---
EXAMINATION: XR abdomen obstructive series DATE: 05/23/2021 15:06 INDICATION: Abdominal pain and constipation TECHNIQUE: Frontal supine and upright views of the abdomen were obtained. COMPARISON: 02/08/2021 FINDINGS: Cholecystectomy clips in right upper quadrant. Couple additional surgical clips in the central pelvis . Gas and small amount of stool scattered throughout the colon. Additional gas within a few none dila shantel loops of small bowel. No pneumatosis or free intraperitoneal gas. Couple phleboliths in the right hemipelvis. Lung bases are clear. Cardiac pacemaker/AICD these with distal tips projecting over the right atrium and right ventricle. Moderate thoracic spondylosis. IMPRESSION: 1. Unremarkable bowel gas pattern without abnormally increased amount of stool to suggest constipati on. Reviewed, dictated and finalized at [facility]. 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 Unremarkable bowel gas pattern without abnormally increased amount of stool to suggest constipation.
[2021-05-23 15:16] LABS: Basophils Absolute Auto 0.02 K/mm3 (0.00-0.10); Basophils Percent Auto 0.5 % (0.0-1.0); Eosinophils Absolute Auto 0.11 K/mm3 (0.02-0.50); Eosinophils Percent Auto 2.7 % (1.0-6.0); Hematocrit 42.4 % (37.0-46.0); Hemoglobin 13.8 g/dL (12.4-15.3); Immature Granulocyte Absolute 0.03 K/mm3 (0.00-0.00); Immature Granulocyte Percent A 0.7 % (0.0-0.0); Lymphocytes Absolute Auto 0.92 K/mm3 (1.10-4.50); Lymphocytes Percent Auto 22.5 % (18.0-42.0); Mean Corpuscular HGB Conc 32.5 g/dL (32.0-36.0); Mean Corpuscular Volume 92.2 fL (78.0-102.0); Mean Platelet Volume 10.5 fl (8.7-11.0); Monocytes Absolute Auto 0.46 K/mm3 (0.10-0.90); Monocytes Percent Auto 11.2 % (2.0-11.0); Neutrophils Absolute Auto 2.6 K/mm3 (1.7-7.2); Neutrophils Percent Auto 62.4 % (50.0-70.0); Platelet Count Result 164 K/mm3 (150-420); Red Cell Distribution Width 13.2 % (11.6-14.4); White Blood Count 4.1 K/mm3 (4.8-10.8)
[2021-05-23 15:39] LABS: Add Urine Microscopic? NO; Appearance Urine Clear (Clear); Bilirubin Urine Negative (Negative); Blood Urine Negative (Negative); Color Urine Light Yellow (Yellow); Glucose Urine UA Negative (Negative); Ketones Urine Negative (Negative); Leukocyte Esterase Ur Negative (Negative); Nitrate Urine Negative (Negative); Protein Urine Negative (Negative); Specific Grav Ur 1.015 (1.010-1.020); Urobilinogen Urine 0.2 mg/dL (0.2-1.0); pH Urine 5.5 (5.0-8.0)
[2021-05-23 16:38] LABS: Alanine Aminotransferase 79 U/L (16-63); Albumin Level 3.8 g/dL (3.4-5.0); Alkaline Phosphatase 68 U/L (46-116); Amylase 39 U/L (25-115); Anion Gap 12 mmol/L (8-16); Aspartate Amino Transferase 48 U/L (15-37); Bilirubin,Total 0.7 mg/dL (0.00-1.00); Blood Urea Nitrogen 15 mg/dL (7-18); Calcium 8.8 mg/dL (8.5-10.1); Carbon Dioxide 28 mmol/L (21-32); Chloride 100 mmol/L (98-108); Estimated Glomerular Filt Rate 58; Free T4 Free Thyroxine 1.34 ng/dL (0.76-1.46); Glucose 88 mg/dL (70-99); Lipase 55 U/L (73-393); Osmolality Calculated 289 mOsm/kg (285-295); Prostate Specific Antigen 0.5 ng/mL (< OR = 4.0); Sodium 140 mmol/L (136-145); Thyroid Stimulating Hormone 3.54 uIU/mL (0.36-3.74)
[2021-05-28 20:28] LABS: Hepatitis A Antibody IgM Nonreactive; Hepatitis B Core Antibody Nonreactive (Nonreactive); Hepatitis B Surface Antigen Nonreactive (Nonreactive); Hepatitis C Signal to Cutoff 0.01 ratio (<1.00); Hepatitis C Virus Antibody Nonreactive (Nonreactive)
== END 2021-05-23 14:20 | disposition home or self-care (01) ==
LOC: CHSLAB 14:23
PROVIDERS: PCP Internal Medicine; Visit Provider Nurse Practitioner Family
DX: R10.9 Unspecified abdominal pain (principal); K59.00 Constipation, unspecified; E03.9 Hypothyroidism, unspecified; N41.9 Inflammatory disease of prostate, unspecified; R94.5 Abnormal results of liver function studies
CPT/HCPCS: 36415; 74019; 80053; 80074; 81003; 82150; 83690; 84153; 84439; 84443; 85025; 87086

== ENCOUNTER 2021-06-07 10:16 | Outpatient (CLI) | payer MEDICARE, SELFPAY ==
--- NOTE | ~2021-06-07 | XR_ITS ---
. EXAMINATION: XR abdomen obstructive series DATE: 06/07/2021 10:54 INDICATION: Abdominal pain. TECHNIQUE: Upright and supine views of the abdomen on 5 radiographs were obtained. COMPARISON: Abdomen radiographs 05/23/2021, CT abdomen and pelvis 01/04/2021 FINDINGS: There are no dilated loops of bowel. There is a moderate volume of stool in the colon. No f ree intraperitoneal gas. Surgical clips in the right upper quadrant are likely from cholecystectomy. There are pacer wires in right atrium and right ventricle. Surgical clips overlie the pelvis. IMPRESSION: 1. Normal bowel gas pattern. Reviewed, dictated and finalized at [facility]. F DOG LICENSE INSPECTOR
[2021-06-07 10:46] LABS: Basophils Absolute Auto 0.02 K/mm3 (0.00-0.10); Basophils Percent Auto 0.5 % (0.0-1.0); Eosinophils Absolute Auto 0.16 K/mm3 (0.02-0.50); Eosinophils Percent Auto 3.8 % (1.0-6.0); Hematocrit 41.1 % (37.0-46.0); Hemoglobin 13.7 g/dL (12.4-15.3); Immature Granulocyte Absolute 0.01 K/mm3 (0.00-0.00); Immature Granulocyte Percent A 0.2 % (0.0-0.0); Lymphocytes Absolute Auto 1.04 K/mm3 (1.10-4.50); Lymphocytes Percent Auto 24.4 % (18.0-42.0); Mean Corpuscular HGB Conc 33.3 g/dL (32.0-36.0); Mean Corpuscular Hemoglobin 30.9 pg (27.0-31.0); Mean Corpuscular Volume 92.6 fL (78.0-102.0); Mean Platelet Volume 9.9 fl (8.7-11.0); Monocytes Absolute Auto 0.56 K/mm3 (0.10-0.90); Monocytes Percent Auto 13.1 % (2.0-11.0); Neutrophils Absolute Auto 2.5 K/mm3 (1.7-7.2); Platelet Count Result 170 K/mm3 (150-420); Red Blood Count 4.44 M/mm3 (4.70-6.10); Red Cell Distribution Width 13.8 % (11.6-14.4); White Blood Count 4.3 K/mm3 (4.8-10.8)
[2021-06-07 10:50] LABS: Add Urine Microscopic? NO; Appearance Urine Clear (Clear); Bilirubin Urine Negative (Negative); Blood Urine Negative (Negative); Color Urine Yellow (Yellow); Glucose Urine UA Negative (Negative); Ketones Urine Negative (Negative); Leukocyte Esterase Ur Negative (Negative); Nitrate Urine Negative (Negative); Protein Urine Negative (Negative); Urobilinogen Urine 0.2 mg/dL (0.2-1.0)
[2021-06-07 11:00] LABS: Alanine Aminotransferase 51 U/L (16-63); Albumin Level 3.5 g/dL (3.4-5.0); Alkaline Phosphatase 59 U/L (46-116); Amylase 42 U/L (25-115); Anion Gap 9 mmol/L (8-16); Aspartate Amino Transferase 34 U/L (15-37); Bilirubin,Total 0.5 mg/dL (0.00-1.00); Blood Urea Nitrogen 15 mg/dL (7-18); Calcium 8.9 mg/dL (8.5-10.1); Carbon Dioxide 29 mmol/L (21-32); Chloride 104 mmol/L (98-108); Estimated Glomerular Filt Rate 52; Glucose 95 mg/dL (70-99); Lipase 62 U/L (73-393); Osmolality Calculated 294 mOsm/kg (285-295); Sodium 142 mmol/L (136-145)
== END 2021-06-07 10:17 | disposition home or self-care (01) ==
LOC: CHSLAB 10:18
PROVIDERS: PCP Internal Medicine; Visit Provider Family Medicine
DX: R10.84 Generalized abdominal pain (principal)
CPT/HCPCS: 36415; 74019; 80053; 81003; 82150; 83690; 85025

== ENCOUNTER 2021-07-14 00:22 | Day surgery (SDC) | payer MEDICARE, SELFPAY ==
[2021-07-07 11:30] VITALS: BMI 33.3
--- NOTE | 2021-07-07 11:40 | PC.NURSE ---
pt called for endoscopy pat, instructed pt to hold his pradaxa 2 days prior to procedure. last dose will be jul 11. pt voiced understanding.
[2021-07-14 08:15] VITALS: BP 95/60; PULSE 59; RESP 18; TEMP 36.3; O2SAT 99; BMI 33.4
--- NOTE | 2021-07-14 08:16 | WPDHPUPDATE1 ---
History and Physical Update Update Date/Time: 07/14/21 08:16 History and Physical has been reviewed, including an updated exam of the patient. There are NO changes in the patient's condition. Risks, benefits, and alternatives have been discussed and questions answered. Patient agrees to proceed with procedure.
[2021-07-14] MEDS: LACTATED RINGERS 1,000 ML 150 ML IV CONT (08:39)
--- NOTE | 2021-07-14 08:39 | WPDANESEPPF ---
Anes - Initial Pre Proc Eval Procedure: Operation Date: 07/14/21 09:00 Proposed Procedures p Colonoscopy - Kemar Youssef MD Date/Time: 07/14/21 08:39 Surgeon: Kmear Youssef MD Pre Op Diagnosis: change in bowel habits, constipation Patient Data Age: 76 Gender: M Height: 1.83 m Weight: 111.9 kg Last Vital Signs Temp 97.3 F L 07/14/21 08:15 Pulse 59 L 07/14/21 08:15 Resp 18 07/14/21 08:15 BP 95/60 L 07/14/21 08:15 Pulse Ox 99 07/14/21 08:15 Allergies Allergy/AdvReac Type Severity Reaction Status Date / Time Sulfa (Sulfonamide Allergy Intermediate Rash Verified 07/14/21 08:24 Antibiotics) Home Medications Medication Instructions Recorded Confirmed Type Adults Multivitamin 1 tablet PO DAILY 12/30/19 07/07/21 History Entresto 49 - 51 tablet PO BID 12/30/19 07/07/21 History Fish Oil 1 cap PO HS 12/30/19 07/07/21 History Pradaxa 150 mg PO BID 12/30/19 07/07/21 History aspirin 81 mg PO HS 12/30/19 07/07/21 History docusate sodium [Colace] 250 mg PO HS PRN 12/30/19 07/07/21 History eplerenone 25 mg PO HS 12/30/19 07/07/21 History folic acid 0.4 mg PO HS 12/30/19 07/07/21 History furosemide 40 mg PO DAILY 12/30/19 07/07/21 History isosorbide mononitrate 120 mg PO BID 12/30/19 07/07/21 History nitroglycerin 0.4 mg SUBLINGUAL Q5MIN PRN 12/30/19 07/07/21 History omeprazole 40 mg PO DAILY 12/30/19 07/07/21 History rosuvastatin 20 mg PO HS 12/30/19 07/07/21 History levothyroxine 75 mcg PO DAILY 09/24/20 07/07/21 History metoprolol tartrate 50 mg PO TID 09/24/20 07/07/21 History amiodarone 200 mg tablet 200 mg PO DAILY tablet 06/29/21 07/07/21 History linaclotide 145 mcg capsule 145 mcg PO DAILY PRN cap 06/29/21 07/07/21 History Patient hx anesthesia problems: none Family hx anesthesia problems: none Results Review: All pre-operative results and documents have been reviewed as part of the pre-operative evaluation. [facility] Past Medical History Medical History Coronary artery disease History of anterior wall [place] in 1993 status post balloon angioplasty of the LAD. He is a patient of Dr. Tri Nuñez. Essential hypertension Gastroesophageal reflux disease Hyperlipidemia Hypothyroidism Ischemic cardiomyopathy Last ejection fraction was approximately 20%. Status post PM/ICD insertion. Left bundle branch block Paroxysmal atrial fibrillation History of several cardioversions, on long-term anticoagulation. Paroxysmal atrial flutter Status post DC cardioversion on 12/31/2019. 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 Surgical History Surgical History History of cardiac catheterization History of cholecystectomy History of squamous cell carcinoma excision (~05/2016) Excised from the right conchal bowl with FTSG per Dr. Hsu. Presence of combination internal cardiac defibrillator (ICD) and pacemaker [employer] PM/ICD placed in 2000 with history of generator changed x2. Family History Family History Father Acute myocardial infarction Hypertension Coronary artery disease Cerebrovascular accident Sibling Hypertension Coronary artery disease Acute myocardial infarction Sibling Acute myocardial infarction Coronary artery disease Mother Cerebrovascular accident Cancer Social History Social History Social History: Surrogate decision maker: Susana Mcneal, spouse. Code status: Full code. Smoking status: Former smoker Alcohol intake: current Alcohol use details: rare Substance use: never Substance use type: does not use Living arrangements: with family Additional living arrangements comments: Resides in [place] with his spouse. Additional occupation/education comments: [employer]
[2021-07-14 09:08] VITALS: BP 112/67; PULSE 60; RESP 18; O2SAT 100
[2021-07-14 09:18] VITALS: BP 111/62; PULSE 60; RESP 17; O2SAT 100
[2021-07-14 09:28] VITALS: BP 107/61; PULSE 66; RESP 19; O2SAT 98
== END 2021-07-14 09:45 | disposition home or self-care (01) ==
PROVIDERS: PCP Internal Medicine; Visit Provider Internal Medicine Gastroenterology
PROC: 0DJD8ZZ Inspection of Lower Intestinal Tract, Via Natural or Artificial Opening Endoscopic (ICD-10-PCS; CPT 45378; principal; 2021-07-14 09:00)
DX: R19.4 Change in bowel habit (principal); K57.30 Diverticulosis of large intestine without perforation or abscess without bleeding; K64.8 Other hemorrhoids; I25.10 Atherosclerotic heart disease of native coronary artery without angina pectoris; I10 Essential (primary) hypertension; K21.9 Gastro-esophageal reflux disease without esophagitis; E03.9 Hypothyroidism, unspecified; I25.5 Ischemic cardiomyopathy; I44.7 Left bundle-branch block, unspecified; I48.0 Paroxysmal atrial fibrillation; Z85.828 Personal history of other malignant neoplasm of skin; Z87.891 Personal history of nicotine dependence; E66.9 Obesity, unspecified; Z68.33 Body mass index [BMI] 33.0-33.9, adult
CPT/HCPCS: 45378; J2704; J7120

== ENCOUNTER 2021-09-27 11:09 | Outpatient (CLI) | payer MEDICARE, SELFPAY ==
--- NOTE | ~2021-09-27 | XR_ITS ---
EXAMINATION: XR chest 2V DATE: 09/27/2021 11:47 INDICATION: Medication monitoring encounter, amiodarone use TECHNIQUE: PA and lateral views of the chest are obtained. COMPARISON: 09/07/2020 FINDINGS: The lungs are free of acute opacities. There is no pleural effusion or pneumothorax. The ca rdiomediastinal silhouette is normal. There is moderate thoracic spondylosis. Chronic anterior wedgin g is noted in multiple thoracic vertebral bodies. A dual-lead cardiac pacemaker of the left chest wal l ends with leads in expected locations. Surgical clips are noted in the right upper quadrant. IMPRESSION: 1. No acute cardiopulmonary abnormality. Reviewed, dictated and finalized at location [facility].
[2021-09-27 11:52] LABS: Hematocrit 39.5 % (42.0-52.0); Hemoglobin 12.7 g/dL (14.0-18.0); Mean Corpuscular HGB Conc 32.2 g/dl (32-36); Mean Corpuscular Hemoglobin 29.9 pg (26-34); Mean Corpuscular Volume 92.9 fl (80-100); Mean Platelet Volume 9.6 fl (7.4-10.4); Platelet Count Result 167 k/mm3 (150-375); Red Blood Count 4.25 M/mm3 (4.6-6.20); Red Cell Distribution Width 13.6 % (11.5-14.5); White Blood Count 4.5 K/mm3 (4.5-10.0)
[2021-09-27 12:09] LABS: Alanine Aminotransferase 34 U/L (4-50); Albumin Level 4.3 g/dL (3.5-5.1); Alkaline Phosphatase 56 U/L (38-126); Anion Gap 7 mmol/L (8-16); Aspartate Amino Transferase 39 U/L (17-59); Bilirubin,Total 0.4 mg/dL (0.2-1.3); Blood Urea Nitrogen 17 mg/dL (9-20); Calcium 8.6 mg/dL (8.4-10.2); Carbon Dioxide 26 mmol/L (22-30); Chloride 104 mmol/L (98-107); Estimated Glomerular Filt Rate > 60; Glucose 123 mg/dL (65-110); Potassium 4.3 mmol/L (3.4-5.0); Sodium 137 mmol/L (137-145)
== END 2021-09-27 11:10 | disposition home or self-care (01) ==
PROVIDERS: PCP Internal Medicine; Visit Provider Internal Medicine Cardiovascular Disease
DX: I25.5 Ischemic cardiomyopathy (principal); Z51.81 Encounter for therapeutic drug level monitoring; Z79.01 Long term (current) use of anticoagulants; Z79.899 Other long term (current) drug therapy
CPT/HCPCS: 36415; 71046; 80053; 84443; 85027

== ENCOUNTER 2021-10-28 14:59 | Outpatient (CLI) | payer MEDICARE, SELFPAY ==
[2021-10-28 16:17] LABS: Anion Gap 7 mmol/L (8-16); Blood Urea Nitrogen 20 mg/dL (9-20); Calcium 8.5 mg/dL (8.4-10.2); Carbon Dioxide 25 mmol/L (22-30); Chloride 106 mmol/L (98-107); Estimated Glomerular Filt Rate > 60; Glucose 114 mg/dL (65-110); Potassium 4.5 mmol/L (3.4-5.0); Sodium 138 mmol/L (137-145)
== END 2021-10-28 15:00 | disposition home or self-care (01) ==
LOC: ANHLAB 15:02
PROVIDERS: PCP Internal Medicine; Visit Provider Internal Medicine Cardiovascular Disease
DX: I25.5 Ischemic cardiomyopathy (principal)
CPT/HCPCS: 36415; 80048

== ENCOUNTER 2021-12-27 14:15 | Outpatient (CLI) | payer MEDICARE, SELFPAY ==
--- NOTE | ~2021-12-27 | CT_ITS ---
EXAMINATION: CT brain wo con INDICATION: Head injury COMPARISON: 07/05/2020 TECHNIQUE: Standard unenhanced head CT. The dose-length product (DLP) was 605.33 mGy-cm. The mA was a djusted according to patient size. Iterative reconstruction technique was employed. FINDINGS: There is no acute intraparenchymal hemorrhage. No evidence of mass lesion. No evidence of a cute infarction. There is mild periventricular and subcortical hypodensity probably related to small vessel ischemic disease. There is mild prominence of the sulci and ventricles related to cerebral atr ophy. Intracranial calcified cerebral atherosclerosis is noted. There are no extra-axial collections. There is no mass effect or midline shift. Changes in the globes are likely from ocular lens surgery. There is mild mucosal thickening of the paranasal sinuses. IMPRESSION: 1. No acute intracranial abnormality. 2. Age related findings. Reviewed, dictated and finalized at location B.
== END 2021-12-27 14:16 | disposition home or self-care (01) ==
LOC: CHSIMG 14:18
PROVIDERS: PCP Internal Medicine; Visit Provider Internal Medicine
DX: S09.90XA Unspecified injury of head, initial encounter (principal); R51.9 Headache, unspecified; Z79.01 Long term (current) use of anticoagulants
CPT/HCPCS: 70450

== ENCOUNTER 2022-01-30 11:14 | Outpatient (CLI) | payer MEDICARE, SELFPAY ==
--- NOTE | ~2022-01-30 | XR_ITS ---
EXAM: XR abdomen obstructive series DATE: 01/30/2022 11:55 HISTORY: ABDOMINAL PAINtimes1 week . COMPARISON: 06/07/2021. FINDINGS: Incompletely visualized pacer/AICD wires. Cholecystectomy clips. Clear lung bases. Normal b owel gas pattern. No organomegaly. Pelvic phleboliths. Surgical clips over the midline pelvis. Degene rative changes in the lumbar spine and bilateral hips. IMPRESSION: No radiographic evidence of obstruction or ileus. Reviewed, dictated and finalized at location K.
[2022-01-30 11:33] LABS: Hematocrit 40.9 % (37.0-46.0); Hemoglobin 13.9 g/dL (12.4-15.3); Mean Corpuscular Hemoglobin 30.3 pg (27.0-31.0); Mean Corpuscular Volume 89.1 fL (78.0-102.0); Mean Platelet Volume 9.7 fl (8.7-11.0); Platelet Count Result 159 K/mm3 (150-420); Red Blood Count 4.59 M/mm3 (4.70-6.10); Red Cell Distribution Width 13.9 % (11.6-14.4); White Blood Count 3.9 K/mm3 (4.8-10.8)
[2022-01-30 11:43] LABS: Appearance Urine Clear (Clear); Bilirubin Urine Negative (Negative); Color Urine Light Yellow (Yellow); Glucose Urine UA Negative (Negative); Ketones Urine Negative (Negative); Leukocyte Esterase Ur Negative (Negative); Nitrate Urine Negative (Negative); Protein Urine Negative (Negative); Specific Grav Ur <= 1.005 (1.010-1.020); Urobilinogen Urine 0.2 mg/dL (0.2-1.0)
[2022-01-30 11:51] LABS: Add Urine Microscopic? YES; Bacteria Urine Trace /hpf; Blood Urine Trace-Intact (Negative); RBC Urine None seen /hpf (0-2); Squamous Epithelial Cell Urine Rare /hpf (Few); WBC Urine None seen /hpf (0-3)
[2022-01-30 12:02] LABS: Alanine Aminotransferase 31 U/L (16-63); Alkaline Phosphatase 60 U/L (46-116); Amylase 37 U/L (25-115); Anion Gap 8 mmol/L (8-16); Aspartate Amino Transferase 28 U/L (15-37); Bilirubin,Total 0.7 mg/dL (0.00-1.00); Blood Urea Nitrogen 13 mg/dL (7-18); Calcium 9.1 mg/dL (8.5-10.1); Carbon Dioxide 28 mmol/L (21-32); Chloride 99 mmol/L (98-108); Estimated Glomerular Filt Rate 55; Glucose 107 mg/dL (70-99); Lipase 58 U/L (73-393); Osmolality Calculated 280 mOsm/kg (285-295); Potassium 3.9 mmol/L (3.5-5.1); Prostate Specific Antigen 0.6 ng/mL (< OR = 4.0); Sodium 135 mmol/L (136-145); Total Protein 7.5 g/dL (6.4-8.2)
[2022-01-30 12:40] LABS: Total Cells Counted 100
[2022-01-30 12:41] LABS: Band Neutrophils Percent 0 % (0-6); Eosinophils Absolute Manual 0.11 K/mm3 (0.02-0.5); Eosinophils Percent Manual 3 % (1-6); Lymphocytes Percent Manual 31 % (18-44); Monocytes Absolute Manual 0.23 K/mm3 (0.1-0.90); Monocytes Percent Manual 6 % (3-9); Neutrophils Absolute Manual 2.34 K/mm3 (1.3-6.7); Neutrophils Percent Manual 60 % (46-73); Platelet Estimate Adequate (Adequate)
== END 2022-01-30 11:15 | disposition home or self-care (01) ==
LOC: CHSLAB 11:17
PROVIDERS: PCP Internal Medicine; Visit Provider Nurse Practitioner Family
DX: R10.9 Unspecified abdominal pain (principal); R31.9 Hematuria, unspecified
CPT/HCPCS: 36415; 74019; 80053; 81001; 82150; 83690; 84153; 85025; 87086; 88112

== ENCOUNTER 2022-03-02 09:49 | Outpatient (CLI) | payer MEDICARE, SELFPAY ==
--- NOTE | ~2022-03-02 | CT_ITS ---
EXAMINATION: CT abdomen pelvis w con DATE: 03/02/2022 10:55 INDICATION: Acute diffuse abdominal pain. TECHNIQUE: Computed tomography (CT) of the abdomen and pelvis was performed with 100 cc Omnipaque 350 intravenous contrast. The dose-length product was 1581.90 mGy-cm. Automated exposure control and iterative reconstruction technique were employed. COMPARISON: CT dated 01/04/2021 FINDINGS: Lung bases are unremarkable. Heart size normal. Trace pericardial effusion. No significant pleural effusion. Small hiatal hernia. Status post cholecystectomy with expected prominence of the bi le ducts. There are calcified granulomas of the spleen. There are bilateral renal cysts. No hydroneph rosis. The adrenal glands are within normal limits. The pancreas is normal. Nonobstructive bowel pattern. Se tao osteoarthritis of the hips. Moderate lumbar spondylosis. No evidence for spondylolisthesis. Norm al caliber appendix without surrounding inflammatory change. There is an appendicolith. No free air o r free fluid. No significant vascular abnormality. No lymphadenopathy. IMPRESSION: 1. No acute abnormality of the abdomen. Reviewed, dictated and finalized at location B.
[2022-03-02 10:05] LABS: Basophils Absolute Auto 0.03 K/mm3 (0.00-0.10); Basophils Percent Auto 0.8 % (0.0-1.0); Eosinophils Absolute Auto 0.12 K/mm3 (0.02-0.50); Hematocrit 40.8 % (37.0-46.0); Hemoglobin 13.5 g/dL (12.4-15.3); Immature Granulocyte Absolute 0.02 K/mm3 (0.00-0.00); Immature Granulocyte Percent A 0.5 % (0.0-0.0); Lymphocytes Absolute Auto 1.07 K/mm3 (1.10-4.50); Lymphocytes Percent Auto 26.8 % (18.0-42.0); Mean Corpuscular HGB Conc 33.1 g/dL (32.0-36.0); Mean Corpuscular Hemoglobin 29.5 pg (27.0-31.0); Mean Corpuscular Volume 89.3 fL (78.0-102.0); Mean Platelet Volume 9.4 fl (8.7-11.0); Monocytes Percent Auto 12.5 % (2.0-11.0); Neutrophils Absolute Auto 2.3 K/mm3 (1.7-7.2); Neutrophils Percent Auto 56.4 % (50.0-70.0); Platelet Count Result 164 K/mm3 (150-420); Red Blood Count 4.57 M/mm3 (4.70-6.10); Red Cell Distribution Width 14.3 % (11.6-14.4)
[2022-03-02 10:17] LABS: Alanine Aminotransferase 26 U/L (16-63); Albumin Level 3.9 g/dL (3.4-5.0); Alkaline Phosphatase 60 U/L (46-116); Anion Gap 6 mmol/L (8-16); Aspartate Amino Transferase 21 U/L (15-37); Bilirubin,Total 0.6 mg/dL (0.00-1.00); Blood Urea Nitrogen 13 mg/dL (7-18); Carbon Dioxide 30 mmol/L (21-32); Chloride 103 mmol/L (98-108); Estimated Glomerular Filt Rate 54; Glucose 101 mg/dL (70-99); Osmolality Calculated 288 mOsm/kg (285-295); Sodium 139 mmol/L (136-145); Total Protein 7.2 g/dL (6.4-8.2)
== END 2022-03-02 09:50 | disposition home or self-care (01) ==
LOC: CHSLAB 09:52
PROVIDERS: PCP Internal Medicine; Visit Provider Internal Medicine
DX: R10.9 Unspecified abdominal pain (principal)
CPT/HCPCS: 36415; 74177; 80053; 85025; Q9967

== ENCOUNTER 2022-04-10 20:38 | Emergency (ER) | payer MEDICARE, SELFPAY ==
--- NOTE | ~2022-04-10 | XR_ITS ---
EXAMINATION: XR chest 2V Exam Date/Time: 04/10/2022 21:21 MINE CAPTAIN HISTORY: COVID +, DEFIB IS GOING . shortness of breath Comparison: 09/27/2021. RESULT: Lines, tubes, and devices: Left chest pacer/defibrillator, with intact leads. Cholecystectomy clips. Lungs and pleura: Clear. Cardiomediastinal silhouette: Stable. Other: No acute osseous or upper abdominal finding. IMPRESSION: No acute cardiopulmonary process. Reviewed, dictated and finalized at location K. CAPTAIN
[2022-04-10 20:42] VITALS: BP 138/78; PULSE 70; RESP 14; TEMP 36.5; O2SAT 100
--- NOTE | 2022-04-10 20:42 | ECG_ITS ---
Measurements Intervals [place] Rate: 67 P: [place]: 0 QRS: -63 QRSD: 240 T: 109 QT: 506 QTc: 535 Interpretive Statements ATRIAL SENSE- ELECTRONIC VENTRICULAR PACEMAKER BASELINE ARTIFACT- I, III NO FURTHER INTERPRETATION IS POSSIBLE ATYPICAL ECG COMPARED TO ECG 01/24/2020 08:33:37 NO SIGNIFICANT CHANGES Electronically Signed On 04-11-2022 6:47:44 APPLICATION PACKAGING SPECIALIST by Sadi Ibrahim D.O.
[2022-04-10 20:57] LABS: Basophils Percent Auto 0.6 % (0.2-1.2); Eosinophils Absolute Auto 0.1 K/mm3 (0-0.3); Eosinophils Percent Auto 2.1 % (0-4.4); Hemoglobin 13.6 g/dL (14.0-18.0); Immature Granulocyte Absolute 0.02 K/mm3 (0.00-0.031); Immature Granulocyte Percent A 0.4 % (0-0.5); Lymphocytes Absolute Auto 0.37 K/mm3 (0.9-3.2); Lymphocytes Percent Auto 7.7 % (18.3-44.2); Mean Corpuscular HGB Conc 33.2 g/dl (32-36); Mean Corpuscular Hemoglobin 30.4 pg (26-34); Mean Corpuscular Volume 91.7 fl (80-100); Mean Platelet Volume 9.1 fl (7.4-10.4); Monocytes Absolute Auto 0.6 K/mm3 (0.1-0.6); Monocytes Percent Auto 12.7 % (2.6-8.5); Neutrophils Absolute Auto 3.7 K/mm3 (1.3-6.7); Neutrophils Percent Auto 76.5 % (45.5-73.1); Platelet Count Result 138 k/mm3 (150-375); Red Blood Count 4.47 M/mm3 (4.6-6.20); Red Cell Distribution Width 14.3 % (11.5-14.5); White Blood Count 4.8 K/mm3 (4.5-10.0)
[2022-04-10 21:07] LABS: Alanine Aminotransferase 21 U/L (6-50); Albumin Level 4.7 g/dL (3.5-5.1); Alkaline Phosphatase 66 U/L (38-126); Anion Gap 10 mmol/L (8-16); Aspartate Amino Transferase 29 U/L (17-59); Bilirubin,Total 0.7 mg/dL (0.2-1.3); Blood Urea Nitrogen 13 mg/dL (9-20); Calcium 8.8 mg/dL (8.4-10.2); Carbon Dioxide 26 mmol/L (22-30); Chloride 101 mmol/L (98-107); Estimated CRCL calculation 64 ml/min; Estimated Glomerular Filt Rate 59; Glucose 129 mg/dL (65-110); Potassium 3.9 mmol/L (3.4-5.0); Sodium 137 mmol/L (137-145)
[2022-04-10 23:59] VITALS: BP 121/60; PULSE 80; RESP 18; O2SAT 100
--- NOTE | 2022-04-11 00:02 | ED.GENADULT ---
HPI - General Adult General Chief complaint: Shortness of Breath/Dyspnea Stated complaint: covid positive Time Seen by Provider: 04/10/22 23:31 History of Present Illness HPI narrative: the this is a 76-year-old gentleman with a history of heart failure with reduced ejection fraction 30% presenting ED after a positive COVID test at home. Patient said that starting earlier today he felt a little bit more fatigued than usual with a sore throat, fever and cough. Took a COVID test which was positive. He then came to the hospital to be evaluated to his heart condition. Patient says that he does feel slightly short of breath that is essentially baseline for him. He denies chest pain, abdominal pain, nausea vomiting or diarrhea. He is vaccinated against COVID with several boosters. his is also feeling unwell. He did take some Tylenol earlier that improved his symptoms. He is tolerating p.o. although he does have decreased appetite. Related Data Home Medications Medication Instructions Recorded Confirmed aspirin 81 mg chewable tablet 81 mg PO HS 12/30/19 07/07/21 dabigatran etexilate 150 mg 150 mg PO BID 12/30/19 07/07/21 capsule (Pradaxa) docusate sodium 100 mg capsule 250 mg PO HS PRN Constipation 12/30/19 07/07/21 (Colace) eplerenone 25 mg tablet 25 mg PO HS 12/30/19 07/07/21 folic acid 400 mcg tablet 0.4 mg PO HS 12/30/19 07/07/21 furosemide 40 mg tablet 40 mg PO DAILY 12/30/19 07/07/21 isosorbide mononitrate 120 mg 120 mg PO BID 12/30/19 07/07/21 tablet,extended release 24 hr multivit with minerals-iron 18 1 tablet PO DAILY 12/30/19 07/07/21 mg-folic ac 400 mcg-vit K 25 mcg tablet (Adults Multivitamin) nitroglycerin 0.4 mg sublingual 0.4 mg sublingual Q5MIN PRN Chest 12/30/19 07/07/21 tablet Pain omega 9-psb-awm-fish oil 100 1 cap PO HS 12/30/19 07/07/21 mg-160 mg-1,000 mg capsule (Fish Oil) omeprazole 40 mg capsule,delayed 40 mg PO DAILY 12/30/19 07/07/21 release rosuvastatin 20 mg tablet 20 mg PO HS 12/30/19 07/07/21 sacubitril 49 mg-valsartan 51 mg 49 - 51 tablet PO BID 12/30/19 07/07/21 tablet (Entresto) levothyroxine 75 mcg tablet 75 mcg PO DAILY 09/24/20 07/07/21 metoprolol tartrate 50 mg tablet 50 mg PO TID 09/24/20 07/07/21 amiodarone 200 mg tablet 200 mg PO DAILY 06/29/21 07/07/21 linaclotide 145 mcg capsule 145 mcg PO DAILY PRN Abdominal 06/29/21 07/07/21 (Linzess) Discomfort Allergies Allergy/AdvReac Type Severity Reaction Status Date / Time Sulfa (Sulfonamide Allergy Intermediate Rash Verified 07/14/21 08:24 Antibiotics) Review of Systems Review of Systems: CONSTITUTIONAL: Denies night sweats. EYES: No eye pain ENT: Denies rhinorrhea CARDIOVASCULAR: Denies palpitations RESPIRATORY: Denies hemoptysis GASTROINTESTINAL: Denies hematemesis GENITOURINARY: Denies hematuria. SKIN: Denies rash MUSCULOSKELETAL: Denies myalgia. NEUROLOGIC: Denies weakness. PSYCHIATRIC: Denies delusions PMFSH Past Medical History Medical History Coronary artery disease History of anterior wall ID in 1993 status post balloon angioplasty of the LAD. He is a patient of Dr. Tri Nuñez. Essential hypertension Gastroesophageal reflux disease Hyperlipidemia Hypothyroidism Ischemic cardiomyopathy Last ejection fraction was approximately 20%. Status post PM/ICD insertion. Left bundle branch block Paroxysmal atrial fibrillation History of several cardioversions, on long-term anticoagulation. Paroxysmal atrial flutter Status post DC cardioversion on 12/31/2019. 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 Surgical History Surgical History History of cardiac catheterization History of cholecystectomy History of squamous cell carcinoma excision (~05/2016) Excised from the right conchal bowl with FTSG per Dr. Hsu. Presence of combination internal
--- NOTE | 2022-04-11 00:03 | PC.NURSE ---
pt road tested and maintained an o2 saturation of 96% or greater.
[2022-04-11 00:13] VITALS: BP 121/60; PULSE 72; RESP 18; O2SAT 99
== END 2022-04-11 00:10 | disposition home or self-care (01) ==
PROVIDERS: Family Medicine; Emergency Provider Emergency Medicine; PCP Internal Medicine
DX: U07.1 COVID-19 (principal); I48.0 Paroxysmal atrial fibrillation; I50.9 Heart failure, unspecified; I11.0 Hypertensive heart disease with heart failure; I25.10 Atherosclerotic heart disease of native coronary artery without angina pectoris; I25.2 Old myocardial infarction; I48.92 Unspecified atrial flutter; E78.5 Hyperlipidemia, unspecified; E03.9 Hypothyroidism, unspecified; I25.5 Ischemic cardiomyopathy; K21.9 Gastro-esophageal reflux disease without esophagitis; Z95.810 Presence of automatic (implantable) cardiac defibrillator; Z85.828 Personal history of other malignant neoplasm of skin; Z87.891 Personal history of nicotine dependence; Z79.82 Long term (current) use of aspirin; Z79.02 Long term (current) use of antithrombotics/antiplatelets
CPT/HCPCS: 36415; 71046; 80053; 85025; 93005; 99284

== ENCOUNTER 2022-04-12 12:58 | Outpatient (CLI) | payer MEDICARE, SELFPAY ==
[2022-04-12] MEDS: FAMOTIDINE 20 MG TABLET PO (13:21)
[2022-04-12] MEDS: ACETAMINOPHEN 325 MG TABLET 650 MG PO (13:21)
[2022-04-12] MEDS: BEBTELOVIMAB 175 MG/2 ML VIAL IV PUSH (13:22)
[2022-04-12] MEDS: diphenhydrAMINE HCl CAP 25 MG CAPSULE PO (13:22)
== END 2022-04-12 12:59 | disposition home or self-care (01) ==
LOC: CHSTREATRM 12:59
PROVIDERS: PCP Internal Medicine; Visit Provider Internal Medicine
DX: U07.1 COVID-19 (principal)
CPT/HCPCS: A9270; M0222; Q0222

== ENCOUNTER 2022-04-15 20:14 | Emergency (ER) | payer MEDICARE, SELFPAY ==
--- NOTE | ~2022-04-15 | XR_ITS ---
XR chest 1V portable DATE: 04/15/2022 21:28 INDICATION: Shortness of breath, cough. Covid-positive. TECHNIQUE: Portable upright AP chest on 04/15/2022 at 2127 hours COMPARISON: 04/10/2022 PA and lateral chest FINDINGS: Left-sided AICD/pacemaker device with leads overlying right atrium and right ventricle. Hea rt size is within normal limits. There is aortic calcification and tortuosity. No hilar or mediastinal enlargement is noted. No pulmonary infiltrate or consolidation, pleural effusion or pulmonary vascular congestion or pneumo thorax. Diffuse osteopenia. Mild levoscoliosis of the thoracic spine. Degenerative spurring of the thoracic spine. IMPRESSION: No active cardiac pulmonary disease Aortic atherosclerosis No significant change since 04/10/2022 Reviewed, dictated and finalized at location A. MOTOR REPAIRER
[2022-04-15 20:26] VITALS: BP 130/69; PULSE 62; RESP 20; TEMP 36.3; O2SAT 100
[2022-04-15 21:05] VITALS: O2SAT 99
[2022-04-15 21:07] VITALS: BP 116/72; PULSE 62; RESP 22; O2SAT 99
--- NOTE | 2022-04-15 21:13 | ED.SOB ---
HPI - SOB/Dyspnea General Chief Complaint: Shortness of Breath/Dyspnea <Mary Brian PA-C - Last Filed: 04/15/22 22:09> Stated Complaint: COVID POSITIVE <Mary Brian PA-C - Last Filed: 04/15/22 22:09> Time Seen by Provider: 04/15/22 21:05 <Mary Brian PA-C - Last Filed: 04/15/22 22:09> History of Present Illness HPI Narrative: Patient is a 76-year-old male here for evaluation of cough and shortness of breath. Patient states that he was diagnosed with COVID 4 days ago in the ED. He was discharged home given that his vital signs and work-up was reassuring. He received monoclonal antibody infusion from his PCP 2 days ago. Patient states that he is still continued to have cough at nighttime and shortness of breath. Has not taken any medicine for the cough. Denies fevers, chest pain, leg swelling, syncope, weakness. <Mary Brian PA-C - Last Filed: 04/15/22 22:09> Related Data Home Medications: Home Medications Medication Instructions Recorded Confirmed aspirin 81 mg chewable tablet 81 mg PO HS 12/30/19 07/07/21 dabigatran etexilate 150 mg 150 mg PO BID 12/30/19 07/07/21 capsule (Pradaxa) docusate sodium 100 mg capsule 250 mg PO HS PRN Constipation 12/30/19 07/07/21 (Colace) eplerenone 25 mg tablet 25 mg PO HS 12/30/19 07/07/21 folic acid 400 mcg tablet 0.4 mg PO HS 12/30/19 07/07/21 furosemide 40 mg tablet 40 mg PO DAILY 12/30/19 07/07/21 isosorbide mononitrate 120 mg 120 mg PO BID 12/30/19 07/07/21 tablet,extended release 24 hr multivit with minerals-iron 18 1 tablet PO DAILY 12/30/19 07/07/21 mg-folic ac 400 mcg-vit K 25 mcg tablet (Adults Multivitamin) nitroglycerin 0.4 mg sublingual 0.4 mg sublingual Q5MIN PRN Chest 12/30/19 07/07/21 tablet Pain omega 0-nsc-cqg-fish oil 100 1 cap PO HS 12/30/19 07/07/21 mg-160 mg-1,000 mg capsule (Fish Oil) omeprazole 40 mg capsule,delayed 40 mg PO DAILY 12/30/19 07/07/21 release rosuvastatin 20 mg tablet 20 mg PO HS 12/30/19 07/07/21 sacubitril 49 mg-valsartan 51 mg 49 - 51 tablet PO BID 12/30/19 07/07/21 tablet (Entresto) levothyroxine 75 mcg tablet 75 mcg PO DAILY 09/24/20 07/07/21 metoprolol tartrate 50 mg tablet 50 mg PO TID 09/24/20 07/07/21 amiodarone 200 mg tablet 200 mg PO DAILY 06/29/21 07/07/21 linaclotide 145 mcg capsule 145 mcg PO DAILY PRN Abdominal 06/29/21 07/07/21 (Linzess) Discomfort <Mary Brian PA-C - Last Filed: 04/15/22 22:09> Allergies/Adverse Reactions: Allergies Allergy/AdvReac Type Severity Reaction Status Date / Time Sulfa (Sulfonamide Allergy Intermediate Rash Verified 07/14/21 08:24 Antibiotics) <TOM Yusuf Last Filed: 04/15/22 22:09> Review of Systems Review of Systems: Gen.: Denies fevers or chills Eyes: Denies eye pain or visual change ENT: Denies congestion Respiratory: Reports shortness of breath and cough CV: Denies chest pain or palpitations GI: Denies abdominal pain nausea, emesis or diarrhea denies burning, urgency, frequency or hematuria Musculoskeletal: Denies back pain or muscle pain Neuro: Denies numbness, tingling, weakness or focal weakness Skin: Denies rash Except as documented, all other systems reviewed and negative <TOM Yusuf Last Filed: 04/15/22 22:09> [facility] Past Medical History Medical History: Medical History Coronary artery disease History of anterior wall [place] in 1993 status post balloon angioplasty of the LAD. He is a patient of Dr. Tri Nuñez. Essential hypertension Gastroesophageal reflux disease Hyperlipidemia Hypothyroidism Ischemic cardiomyopathy Last ejection fraction was approximately 20%. Status post PM/ICD insertion. Left bundle branch block Paroxysmal atrial fibrillation History of several cardioversions, on long-term anticoagulation. Paroxysmal atrial flutter Status post DC card
[2022-04-15 21:54] VITALS: BP 94/64; PULSE 68; RESP 18
--- NOTE | 2022-04-15 21:58 | PC.NURSE ---
[Pt. ambulated without difficulty around the room with the pulse ox staying steady at 99 % only dropping to 97% for a second. Pt. reports no dizziness or light headedness upon activity. EDP and RN notified.
[2022-04-15 22:15] VITALS: BP 110/70; PULSE 59; RESP 22; O2SAT 98
== END 2022-04-15 22:16 | disposition home or self-care (01) ==
PROVIDERS: Emergency Provider Emergency Medicine; PCP Internal Medicine
DX: U07.1 COVID-19 (principal); I25.10 Atherosclerotic heart disease of native coronary artery without angina pectoris; I10 Essential (primary) hypertension; E78.5 Hyperlipidemia, unspecified; E03.9 Hypothyroidism, unspecified; I48.0 Paroxysmal atrial fibrillation; Z85.828 Personal history of other malignant neoplasm of skin; Z87.891 Personal history of nicotine dependence
CPT/HCPCS: 71045; 99283

== ENCOUNTER 2022-05-01 09:20 | Outpatient (CLI) | payer MEDICARE, SELFPAY ==
[2022-05-01 10:21] LABS: Basophils Percent Auto 0.7 % (0.2-1.2); Eosinophils Absolute Auto 0.1 K/mm3 (0-0.3); Eosinophils Percent Auto 2.9 % (0-4.4); Hemoglobin 13.2 g/dL (14.0-18.0); Immature Granulocyte Absolute 0.02 K/mm3 (0.00-0.031); Immature Granulocyte Percent A 0.4 % (0-0.5); Lymphocytes Absolute Auto 1.11 K/mm3 (0.9-3.2); Lymphocytes Percent Auto 24.6 % (18.3-44.2); Mean Corpuscular Hemoglobin 30.4 pg (26-34); Mean Corpuscular Volume 92.2 fl (80-100); Mean Platelet Volume 9.9 fl (7.4-10.4); Monocytes Absolute Auto 0.6 K/mm3 (0.1-0.6); Monocytes Percent Auto 13.5 % (2.6-8.5); Neutrophils Absolute Auto 2.6 K/mm3 (1.3-6.7); Neutrophils Percent Auto 57.9 % (45.5-73.1); Platelet Count Result 169 k/mm3 (150-375); Red Blood Count 4.34 M/mm3 (4.6-6.20); Red Cell Distribution Width 14.4 % (11.5-14.5); White Blood Count 4.5 K/mm3 (4.5-10.0)
[2022-05-01 10:33] LABS: Anion Gap 5 mmol/L (8-16); Blood Urea Nitrogen 17 mg/dL (9-20); Calcium 8.5 mg/dL (8.4-10.2); Carbon Dioxide 30 mmol/L (22-30); Chloride 102 mmol/L (98-107); Estimated Glomerular Filt Rate > 60; Glucose 108 mg/dL (65-110); Potassium 4.2 mmol/L (3.4-5.0); Sodium 137 mmol/L (137-145)
== END 2022-05-01 09:21 | disposition home or self-care (01) ==
PROVIDERS: PCP Internal Medicine
DX: Z01.812 Encounter for preprocedural laboratory examination (principal); I25.5 Ischemic cardiomyopathy
CPT/HCPCS: 36415; 80048; 85025

== ENCOUNTER 2022-06-23 15:07 | Outpatient (CLI) | payer MEDICARE, SELFPAY ==
[2022-06-23 15:28] LABS: Hematocrit 39.5 % (42.0-52.0); Hemoglobin 13.2 g/dL (14.0-18.0); Mean Corpuscular HGB Conc 33.4 g/dl (32-36); Mean Corpuscular Volume 92.7 fl (80-100); Mean Platelet Volume 9.7 fl (7.4-10.4); Platelet Count Result 146 k/mm3 (150-375); Red Blood Count 4.26 M/mm3 (4.6-6.20); Red Cell Distribution Width 13.7 % (11.5-14.5); White Blood Count 4.5 K/mm3 (4.5-10.0)
[2022-06-23 15:40] LABS: Alanine Aminotransferase 20 U/L (6-50); Albumin Level 4.1 g/dL (3.5-5.1); Alkaline Phosphatase 63 U/L (38-126); Anion Gap 4 mmol/L (8-16); Aspartate Amino Transferase 28 U/L (17-59); Bilirubin,Total 0.5 mg/dL (0.2-1.3); Blood Urea Nitrogen 15 mg/dL (9-20); Calcium 8.7 mg/dL (8.4-10.2); Carbon Dioxide 30 mmol/L (22-30); Chloride 103 mmol/L (98-107); Estimated Glomerular Filt Rate 59; Glucose 115 mg/dL (65-110); Potassium 4.6 mmol/L (3.4-5.0); Sodium 137 mmol/L (137-145)
== END 2022-06-23 15:08 | disposition home or self-care (01) ==
LOC: ANHLAB 15:12
PROVIDERS: PCP Internal Medicine; Visit Provider Internal Medicine Cardiovascular Disease
DX: Z51.81 Encounter for therapeutic drug level monitoring (principal); Z79.899 Other long term (current) drug therapy; I25.5 Ischemic cardiomyopathy; Z79.01 Long term (current) use of anticoagulants
CPT/HCPCS: 36415; 80053; 84443; 85027

== ENCOUNTER 2022-09-28 08:12 | Outpatient (CLI) | payer MEDICARE, SELFPAY ==
[2022-09-28 10:02] LABS: Hemoglobin 13.8 g/dL (14.0-18.0); Mean Corpuscular HGB Conc 33.7 g/dl (32-36); Mean Corpuscular Hemoglobin 30.3 pg (26-34); Mean Corpuscular Volume 89.9 fl (80-100); Mean Platelet Volume 10.1 fl (7.4-10.4); Platelet Count Result 167 k/mm3 (150-375); Red Blood Count 4.56 M/mm3 (4.6-6.20); Red Cell Distribution Width 13.7 % (11.5-14.5); White Blood Count 4.2 K/mm3 (4.5-10.0)
[2022-09-28 10:14] LABS: Alanine Aminotransferase 20 U/L (6-50); Albumin Level 4.5 g/dL (3.5-5.1); Alkaline Phosphatase 63 U/L (38-126); Anion Gap 6 mmol/L (8-16); Aspartate Amino Transferase 27 U/L (17-59); Bilirubin,Total 0.9 mg/dL (0.2-1.3); Blood Urea Nitrogen 14 mg/dL (9-20); Carbon Dioxide 29 mmol/L (22-30); Chloride 101 mmol/L (98-107); Cholesterol 160 mg/dL (0-200); Creatine Kinase 72 U/L (55-170); Estimated Glomerular Filt Rate > 60; Glucose 115 mg/dL (65-110); HDL Direct 61 mg/dL; Potassium 4.1 mmol/L (3.4-5.0); Sodium 136 mmol/L (137-145); Triglycerides 83 mg/dL (<150)
[2022-09-28 10:17] LABS: Appearance Urine Clear (Clear); Bacteria Urine None Seen /hpf; Bilirubin Urine Negative (Negative); Blood Urine Trace (Negative); Color Urine Yellow (Yellow); Glucose Urine UA Negative (Negative); Ketones Urine Negative (Negative); Leukocyte Esterase Ur Negative LEU/UL (NEGATIVE); Nitrate Urine Negative (Negative); Non Pathogenic Casts 0-2; Protein Urine Negative (Negative); Specific Grav Ur 1.019 (1.001-1.035); Squamous Epithelial Cell Urine None seen /hpf (Few); WBC Urine 0-5 /hpf (0-3)
[2022-09-28 10:23] LABS: NT Pro B Type Natriuretic Pept 586 pg/mL (19.9-100)
[2022-09-28 10:25] LABS: Add Urine Microscopic? YES
[2022-09-28 10:28] LABS: LDL Cholesterol Direct 66 mg/dL
[2022-09-28 10:58] LABS: Iron 103 ug/dL (49-181)
[2022-09-28 11:07] LABS: Percent Iron Saturation 26 % (20-50)
[2022-09-28 11:16] LABS: Free T4 Free Thyroxine 1.64 ng/mL (0.78-2.19)
[2022-09-28 13:23] LABS: IFOB Positive Control Positive; Immunochemical Fecal Occult Bl Positive (N)
[2022-10-04 03:54] LABS: Triiodothyronine T3 Free 2.7 pg/mL (2.3-4.2)
== END 2022-09-28 08:13 | disposition home or self-care (01) ==
PROVIDERS: PCP Internal Medicine; Visit Provider Internal Medicine
DX: R73.01 Impaired fasting glucose (principal); E78.2 Mixed hyperlipidemia; E03.4 Atrophy of thyroid (acquired); I10 Essential (primary) hypertension; D64.9 Anemia, unspecified; I50.9 Heart failure, unspecified
CPT/HCPCS: 36415; 80053; 80061; 81001; 82274; 82550; 82607; 83036; 83540; 83550; 83880; 84439; 84443; 84481; 85027

== ENCOUNTER 2022-12-06 14:59 | Outpatient (CLI) | payer MEDICARE, SELFPAY ==
[2022-12-06 16:14] LABS: Basophils Percent Auto 0.6 % (0.2-1.2); Eosinophils Absolute Auto 0.2 K/mm3 (0-0.3); Eosinophils Percent Auto 4.9 % (0-4.4); Hematocrit 40.4 % (42.0-52.0); Hemoglobin 13.5 g/dL (14.0-18.0); Lymphocytes Absolute Auto 0.86 K/mm3 (0.9-3.2); Lymphocytes Percent Auto 24.7 % (18.3-44.2); Mean Corpuscular HGB Conc 33.4 g/dl (32-36); Mean Corpuscular Hemoglobin 29.7 pg (26-34); Mean Corpuscular Volume 88.8 fl (80-100); Mean Platelet Volume 10.4 fl (7.4-10.4); Monocytes Absolute Auto 0.4 K/mm3 (0.1-0.6); Monocytes Percent Auto 12.1 % (2.6-8.5); Neutrophils Percent Auto 57.7 % (45.5-73.1); Platelet Count Result 162 k/mm3 (150-375); Red Blood Count 4.55 M/mm3 (4.6-6.20); Red Cell Distribution Width 14.3 % (11.5-14.5); White Blood Count 3.5 K/mm3 (4.5-10.0)
[2022-12-06 16:33] LABS: Alanine Aminotransferase 19 U/L (6-50); Albumin Level 4.6 g/dL (3.5-5.1); Alkaline Phosphatase 54 U/L (38-126); Anion Gap 7 mmol/L (8-16); Aspartate Amino Transferase 29 U/L (17-59); Bilirubin,Total 0.7 mg/dL (0.2-1.3); Blood Urea Nitrogen 18 mg/dL (9-20); CRP < 0.5 mg/dL (<1.0); Calcium 9.1 mg/dL (8.4-10.2); Carbon Dioxide 30 mmol/L (22-30); Chloride 100 mmol/L (98-107); Estimated Glomerular Filt Rate 49; Glucose 120 mg/dL (65-110); Potassium 4.1 mmol/L (3.4-5.0); Sodium 137 mmol/L (137-145)
[2022-12-06 17:00] LABS: Free T4 Free Thyroxine 1.79 ng/mL (0.78-2.19)
[2022-12-06 17:06] LABS: Erythrocyte Sedimentation Rate 13 mm/hr (0-20)
[2022-12-09 04:41] LABS: Triiodothyronine T3 Free 2.4 pg/mL (2.3-4.2)
== END 2022-12-06 15:00 | disposition home or self-care (01) ==
PROVIDERS: PCP Internal Medicine; Visit Provider Internal Medicine
DX: G62.9 Polyneuropathy, unspecified (principal); R73.01 Impaired fasting glucose; E03.9 Hypothyroidism, unspecified
CPT/HCPCS: 36415; 80053; 82607; 83036; 84439; 84443; 84481; 85025; 85652; 86038; 86140

== ENCOUNTER 2023-01-17 07:16 | Outpatient (CLI) | payer MEDICARE, SELFPAY ==
[2023-01-17 08:33] LABS: Anion Gap 3 mmol/L (8-16); Blood Urea Nitrogen 12 mg/dL (9-20); Carbon Dioxide 29 mmol/L (22-30); Chloride 101 mmol/L (98-107); Estimated Glomerular Filt Rate > 60; Glucose 128 mg/dL (65-110); Sodium 133 mmol/L (137-145)
== END 2023-01-17 07:17 | disposition home or self-care (01) ==
PROVIDERS: PCP Internal Medicine; Visit Provider Internal Medicine
DX: I10 Essential (primary) hypertension (principal)
CPT/HCPCS: 36415; 80048

== ENCOUNTER 2023-01-23 08:37 | Outpatient (CLI) | payer MEDICARE, SELFPAY ==
--- NOTE | 2023-01-23 11:30 | NEURO_ITS ---
Impression: # Complains of numbness in feet. # Neuropathy with borderline slowing and polyphasic responses on proximal stimulation. # No Tarsal Tunnel Syndrome. # Normal needle/EMG exam without acute or chronic neurogenic changes. Nerve Conduction Studies Anti Sensory Summary Table Stim Site NR Peak (ms) P-T Amp (?V) Site1 Site2 Delta-P (ms) Dist (cm) Bentley (m/s) Left Sup Fibular Anti Sensory (Ant Lat Mall) NO RESPONSE 14 cm NR 14 cm Ant Lat Mall 16.0 Right Sup Fibular Anti Sensory (Ant Lat Mall) 14 cm 3.8 9.1 14 cm Ant Lat Mall 3.8 16.0 42 Left Sural Anti Sensory (Lat Mall) NO RESPONSE Calf NR Calf Lat Mall 16.0 Right Sural Anti Sensory (Lat Mall) Calf 3.9 19.9 Calf Lat Mall 3.9 16.0 41 Motor Summary Table Stim Site NR Onset (ms) O-P Amp (mV) Site1 Site2 Delta-0 (ms) Dist (cm) Bentley (m/s) Left Lateral Plantar Motor (ADM) Med Mall 4.5 0.8 Right Lateral Plantar Motor (ADM) Med Mall 4.5 0.6 Left Peroneal Motor (Vastus Med) Ankle 4.5 2.3 Popit Ankle 10.9 45.0 41 Popit 15.4 1.1 Right Peroneal Motor (Vastus Med) Ankle 4.1 1.7 Popit Ankle 10.8 42.0 39 Popit 14.9 1.4 Left Tibial Motor (Abd Teixeira Brev) Ankle 4.5 1.1 Knee Ankle 11.4 45.0 39 Knee 15.9 1.1 Right Tibial Motor (Abd Teixeira Brev) Ankle 4.0 1.9 Knee Ankle 10.8 44.0 41 Knee 14.8 0.6 F Wave Studies NR F-Lat (ms) L-R F-Lat (ms) Left Peroneal (Mrkrs) (EDB) 61.72 0.00 Right Peroneal (Mrkrs) (EDB) 61.72 0.00 Left Tibial (Mrkrs) (Abd Hallucis) 61.38 0.61 Right Tibial (Mrkrs) (Abd Hallucis) 61.99 0.61 EMG Side Muscle Nerve Root Ins Act Fibs Amp Dur Recrt Comment Right AntTibialis Dp Br Fibular L4-5 Nml Nml Nml Nml Nml Right Gastroc Tibial S1-2 Nml Nml Nml Nml Nml Right Fibularis Long Sup Br Fibular L5-S1 Nml Nml Nml Nml Nml Right Flex Dig Long Tibial L5-S2 Nml Nml Nml Nml Nml Right Ext Dig Brev Dp Br Fibular L5, S1 Nml Nml Nml Nml Nml Left AntTibialis Dp Br Fibular L4-5 Nml Nml Nml Nml Nml Left Gastroc Tibial S1-2 Nml Nml Nml Nml Nml Left Fibularis Long Sup Br Fibular L5-S1 Nml Nml Nml Nml Nml Left Flex Dig Long Tibial L5-S2 Nml Nml Nml Nml Nml Left Ext Dig Brev Dp Br Fibular L5, S1 Nml Nml Nml Nml Nml Right QuadratusFem QuadFemoris L4-5, S1 Nml Nml Nml Nml Nml Left QuadratusFem QuadFemoris L4-5, S1 Nml Nml Nml Nml Nml MTDD
== END 2023-01-23 08:38 | disposition home or self-care (01) ==
LOC: ANHNEURO 08:38
PROVIDERS: PCP Internal Medicine; Visit Provider Internal Medicine
DX: R20.0 Anesthesia of skin (principal); R20.8 Other disturbances of skin sensation
CPT/HCPCS: 95886; 95911

== ENCOUNTER 2023-04-02 08:25 | Outpatient (CLI) | payer MEDICARE, SELFPAY ==
[2023-04-02 09:48] LABS: Hematocrit 41.9 % (42.0-52.0); Hemoglobin 13.6 g/dL (14.0-18.0); Mean Corpuscular HGB Conc 32.5 g/dl (32-36); Mean Corpuscular Hemoglobin 29.5 pg (26-34); Mean Corpuscular Volume 90.9 fl (80-100); Mean Platelet Volume 10.5 fl (7.4-10.4); Platelet Count Result 153 k/mm3 (150-375); Red Blood Count 4.61 M/mm3 (4.6-6.20); Red Cell Distribution Width 14.1 % (11.5-14.5); White Blood Count 3.6 K/mm3 (4.5-10.0)
[2023-04-02 09:51] LABS: Appearance Urine Clear (Clear); Bilirubin Urine Negative (Negative); Blood Urine Negative (Negative); Color Urine Yellow (Yellow); Glucose Urine UA Negative (Negative); Ketones Urine Negative (Negative); Leukocyte Esterase Ur Negative LEU/UL (NEGATIVE); Nitrate Urine Negative (Negative); Protein Urine Negative (Negative); Specific Grav Ur 1.016 (1.001-1.035); Urobilinogen Urine 0.2 mg/dL (<2.0)
[2023-04-02 09:55] LABS: Add Urine Microscopic? NO
[2023-04-02 10:06] LABS: Alanine Aminotransferase 20 U/L (6-50); Albumin Level 4.5 g/dL (3.5-5.1); Alkaline Phosphatase 55 U/L (38-126); Anion Gap 4 mmol/L (8-16); Aspartate Amino Transferase 26 U/L (17-59); Bilirubin,Total 0.8 mg/dL (0.2-1.3); Blood Urea Nitrogen 13 mg/dL (9-20); Calcium 9.3 mg/dL (8.4-10.2); Carbon Dioxide 31 mmol/L (22-30); Chloride 102 mmol/L (98-107); Cholesterol 147 mg/dL (0-200); Estimated Glomerular Filt Rate > 60; Glucose 122 mg/dL (65-110); HDL Direct 57 mg/dL; Potassium 4.1 mmol/L (3.4-5.0); Sodium 137 mmol/L (137-145); Triglycerides 74 mg/dL (<150)
[2023-04-02 10:16] LABS: Hemoglobin A1C 5.8 % (<5.7)
[2023-04-02 10:35] LABS: Prostate Specific Antigen 0.6 ng/mL (< OR = 4.0)
[2023-04-02 10:45] LABS: LDL Cholesterol Direct 62 mg/dL; NT Pro B Type Natriuretic Pept 572 pg/mL (19.9-100)
[2023-04-02 10:57] LABS: Free T4 Free Thyroxine 1.38 ng/mL (0.78-2.19)
[2023-04-06 06:06] LABS: Triiodothyronine T3 Free 2.6 pg/mL (2.3-4.2)
== END 2023-04-02 08:26 | disposition home or self-care (01) ==
PROVIDERS: PCP Internal Medicine; Visit Provider Internal Medicine
DX: Z12.5 Encounter for screening for malignant neoplasm of prostate (principal); D64.9 Anemia, unspecified; E03.4 Atrophy of thyroid (acquired); R73.01 Impaired fasting glucose; I50.1 Left ventricular failure, unspecified
CPT/HCPCS: 36415; 80053; 80061; 81003; 83036; 83880; 84153; 84439; 84443; 84481; 85027; G0103

== ENCOUNTER 2023-06-28 09:52 | Outpatient (CLI) | payer MEDICARE, SELFPAY ==
[2023-06-28 10:25] LABS: Basophils Percent Auto 0.5 % (0.2-1.2); Eosinophils Absolute Auto 0.1 K/mm3 (0-0.3); Eosinophils Percent Auto 2.2 % (0-4.4); Hematocrit 42.2 % (42.0-52.0); Hemoglobin 13.5 g/dL (14.0-18.0); Immature Granulocyte Absolute 0.01 K/mm3 (0.00-0.031); Immature Granulocyte Percent A 0.2 % (0-0.5); Lymphocytes Absolute Auto 0.98 K/mm3 (0.9-3.2); Lymphocytes Percent Auto 24.3 % (18.3-44.2); Mean Corpuscular Hemoglobin 29.9 pg (26-34); Mean Corpuscular Volume 93.6 fl (80-100); Mean Platelet Volume 10.4 fl (7.4-10.4); Monocytes Absolute Auto 0.4 K/mm3 (0.1-0.6); Monocytes Percent Auto 9.4 % (2.6-8.5); Neutrophils Absolute Auto 2.6 K/mm3 (1.3-6.7); Neutrophils Percent Auto 63.4 % (45.5-73.1); Platelet Count Result 159 k/mm3 (150-375); Red Blood Count 4.51 M/mm3 (4.6-6.20); Red Cell Distribution Width 13.4 % (11.5-14.5)
[2023-06-28 10:40] LABS: Anion Gap 6 mmol/L (8-16); Blood Urea Nitrogen 17 mg/dL (9-20); Carbon Dioxide 29 mmol/L (22-30); Chloride 103 mmol/L (98-107); Estimated Glomerular Filt Rate > 60; Glucose 92 mg/dL (65-110); Potassium 4.5 mmol/L (3.4-5.0); Sodium 138 mmol/L (137-145)
== END 2023-06-28 09:53 | disposition home or self-care (01) ==
LOC: ANHLAB 09:56
PROVIDERS: PCP Internal Medicine; Visit Provider Internal Medicine Cardiovascular Disease
DX: I50.42 Chronic combined systolic (congestive) and diastolic (congestive) heart failure (principal); R07.9 Chest pain, unspecified
CPT/HCPCS: 36415; 80048; 85025

== ENCOUNTER 2023-07-30 18:13 | Emergency (ER) | payer MEDICARE, SELFPAY | END 2023-07-30 18:33 | disposition left against medical advice (07) | LOC: ANHED 18:30 | PROVIDERS: PCP Internal Medicine | DX: Z53.21 Procedure and treatment not carried out due to patient leaving prior to being seen by health care provider (principal) | CPT/HCPCS: 99199 ==

== ENCOUNTER 2023-07-31 14:58 | Emergency (ER) | payer MEDICARE, SELFPAY ==
--- NOTE | ~2023-07-31 | XR_ITS ---
EXAMINATION: XR chest 2V DATE: 07/31/2023 15:40 INDICATION: Chest pain TECHNIQUE: PA and lateral views of the chest are obtained. COMPARISON: 04/15/2022 FINDINGS: The lungs are free of acute opacities. No pleural effusion or pneumothorax. The cardiomedia stinal silhouette is normal. There is moderate thoracic spondylosis. There has been interval revision of the pacemaker. A triple lead cardiac pacemaker of the left chest wall ends with leads in expected locations. Surgical clips in the right upper quadrant are likely from prior cholecystectomy. IMPRESSION: 1. No acute cardiopulmonary abnormality. Reviewed, dictated and finalized at location L. H MAKER HAND
--- NOTE | 2023-07-31 14:59 | ECG_ITS ---
Measurements Intervals [place] Rate: 60 P: VT: 0 QRS: 251 QRSD: 245 T: 0 QT: 345 QTc: 345 Interpretive Statements ELECTRONIC VENTRICULAR PACEMAKER ABNORMAL RHYTHM ECG COMPARED TO ECG 04/10/2022 20:46:33 NO SIGNIFICANT CHANGES Electronically Signed On 07-31-2023 15:43:04 WATER PLANT MAINTENANCE MECHANIC by Antonio Bone M.D.
[2023-07-31 15:19] VITALS: BP 106/62; PULSE 60; RESP 18; TEMP 36.8; O2SAT 100
[2023-07-31 15:22] LABS: Basophils Percent Auto 0.6 % (0.2-1.2); Eosinophils Absolute Auto 0.1 K/mm3 (0-0.3); Eosinophils Percent Auto 2.2 % (0-4.4); Hematocrit 39.6 % (42.0-52.0); Hemoglobin 12.9 g/dL (14.0-18.0); Immature Granulocyte Absolute 0.01 K/mm3 (0.00-0.031); Immature Granulocyte Percent A 0.2 % (0-0.5); Lymphocytes Absolute Auto 1.28 K/mm3 (0.9-3.2); Lymphocytes Percent Auto 25.7 % (18.3-44.2); Mean Corpuscular HGB Conc 32.6 g/dl (32-36); Mean Corpuscular Hemoglobin 29.9 pg (26-34); Mean Corpuscular Volume 91.7 fl (80-100); Monocytes Absolute Auto 0.6 K/mm3 (0.1-0.6); Monocytes Percent Auto 12.2 % (2.6-8.5); Neutrophils Percent Auto 59.1 % (45.5-73.1); Platelet Count Result 167 k/mm3 (150-375); Red Blood Count 4.32 M/mm3 (4.6-6.20); Red Cell Distribution Width 13.2 % (11.5-14.5)
[2023-07-31 15:34] LABS: Alanine Aminotransferase 20 U/L (6-50); Albumin Level 4.3 g/dL (3.5-5.1); Alkaline Phosphatase 55 U/L (38-126); Anion Gap 5 mmol/L (8-16); Aspartate Amino Transferase 35 U/L (17-59); Bilirubin,Total 0.7 mg/dL (0.2-1.3); Blood Urea Nitrogen 18 mg/dL (9-20); Calcium 9.1 mg/dL (8.4-10.2); Carbon Dioxide 29 mmol/L (22-30); Chloride 102 mmol/L (98-107); Estimated CRCL calculation 55 ml/min; Estimated Glomerular Filt Rate 54; Glucose 110 mg/dL (65-110); INR 1.1; Lipase 68 U/L (23-300); Potassium 4.1 mmol/L (3.4-5.0); Prothrombin Time 14.9 Seconds (11.1-14.7); Sodium 136 mmol/L (137-145)
[2023-07-31 15:35] LABS: Partial Thromboplastin Time 43.1 SECONDS (22.3-36.8)
[2023-07-31 15:46] LABS: Troponin I < 0.012 ng/mL (0.000-0.034)
--- NOTE | 2023-07-31 18:07 | ECG_ITS ---
Measurements Intervals [place] Rate: 60 P: 13 SC: 134 QRS: -85 QRSD: 215 T: 93 QT: 524 QTc: 524 Interpretive Statements ELECTRONIC ATRIAL PACEMAKER ELECTRONIC VENTRICULAR PACEMAKER COMPARED TO ECG 07/31/2023 15:10:54 NO SIGNIFICANT CHANGES Electronically Signed On 08-01-2023 16:22:39 FIRE SUPPRESSION CAPTAIN by Ifeoma Moreno M.D.
[2023-07-31 18:11] VITALS: PULSE 60; O2SAT 99
--- NOTE | 2023-07-31 18:40 | ED.GENADULT ---
HPI - General Adult General Chief complaint: Chest Pain Stated complaint: Chest Pain Time Seen by Provider: 07/31/23 18:18 Source: patient Mode of arrival: ambulatory Limitations: no limitations History of Present Illness HPI narrative: This is a 78-year-old male with PMH of CAD, mi, ischemic cardiomyopathy, s/p bi ventricular pacemaker, paroxysmal AFib, HTN who presents to the ED for chief complaint of chest pain intermittently for the past 4-5 days. Reports that it seems to be getting progressively worse. Located in the left chest and described as a dull pain. Specifically onset with any kind of exertion. Relieved by rest. NTG helped a few days ago but not today. Denies shortness of breath, fevers, chills, cough, back pain, diaphoresis, syncope, vomiting, leg swelling. Anticoagulated on dabigatran Related Data Home Medications Medication Instructions Recorded Confirmed aspirin 81 mg chewable tablet 81 mg PO HS 12/30/19 07/31/23 dabigatran etexilate 150 mg 150 mg PO BID 12/30/19 07/31/23 capsule (Pradaxa) eplerenone 25 mg tablet 25 mg PO HS 12/30/19 07/31/23 folic acid 400 mcg tablet 0.4 mg PO HS 12/30/19 07/31/23 furosemide 40 mg tablet 40 mg PO DAILY 12/30/19 07/31/23 isosorbide mononitrate 120 mg 120 mg PO BID 12/30/19 07/31/23 tablet,extended release 24 hr multivit with minerals-iron 18 1 tablet PO DAILY 12/30/19 07/31/23 mg-folic ac 400 mcg-vit K 25 mcg tablet (Adults Multivitamin) nitroglycerin 0.4 mg sublingual 0.4 mg sublingual Q5MIN PRN Chest 12/30/19 07/31/23 tablet Pain omega 3-ecw-keg-fish oil 100 1 cap PO HS 12/30/19 07/31/23 mg-160 mg-1,000 mg capsule (Fish Oil) omeprazole 40 mg capsule,delayed 40 mg PO DAILY 12/30/19 07/31/23 release rosuvastatin 20 mg tablet 20 mg PO HS 12/30/19 07/31/23 sacubitril 49 mg-valsartan 51 mg 49 - 51 tablet PO BID 12/30/19 07/31/23 tablet (Entresto) levothyroxine 75 mcg tablet 75 mcg PO DAILY 09/24/20 07/31/23 metoprolol tartrate 50 mg tablet 50 mg PO TID 09/24/20 07/31/23 amiodarone 200 mg tablet 200 mg PO DAILY 06/29/21 07/31/23 linaclotide 145 mcg capsule 145 mcg PO DAILY PRN Abdominal 06/29/21 07/31/23 (Linzess) Discomfort Allergies Allergy/AdvReac Type Severity Reaction Status Date / Time Sulfa (Sulfonamide Allergy Intermediate Rash Verified 07/31/23 18:16 Antibiotics) Review of Systems Review of Systems: All systems as dictated in [facility] Past Medical History Medical History (Updated 08/01/23 @ 00:02 by Leann Mark) Coronary artery disease History of anterior wall [place] in 1993 status post balloon angioplasty of the LAD. He is a patient of Dr. Tri Nuñez. Essential hypertension Gastroesophageal reflux disease Hyperlipidemia Hypothyroidism Ischemic cardiomyopathy Last ejection fraction was approximately 20%. Status post PM/ICD insertion. Left bundle branch block Metatarsalgia of right foot Paroxysmal atrial fibrillation History of several cardioversions, on long-term anticoagulation. Paroxysmal atrial flutter Status post DC cardioversion on 12/31/2019. 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 Surgical History Surgical History History of cardiac catheterization History of cholecystectomy History of squamous cell carcinoma excision (~05/2016) Excised from the right conchal bowl with FTSG per Dr. Hsu. Presence of combination internal cardiac defibrillator (ICD) and pacemaker [employer] PM/ICD placed in 2000 with history of generator changed x2. Family History Family History Father Acute myocardial infarction Hypertension Coronary artery disease Cerebrovascular accident Sibling Hypertension Coronary artery disease Acute myocardial infarction Sibling Acute myocardial infarction Coronary artery disease Mother Cerebrovasc
[2023-07-31] MEDS: ASPIRIN 81 MG CHEWABLE TABLET 324 MG PO (18:41)
[2023-07-31 18:45] LABS: Troponin I < 0.012 ng/mL (0.000-0.034)
[2023-07-31 19:20] VITALS: BP 125/69; PULSE 60; PULSE 61; RESP 16; TEMP 36.6; O2SAT 99
[2023-07-31 20:32] VITALS: BP 118/69; PULSE 60; RESP 19; TEMP 37.1; O2SAT 100
== END 2023-07-31 20:34 | disposition home or self-care (01) ==
LOC: ANHED 20:26
PROVIDERS: Preventive Medicine Aerospace Medicine; Emergency Provider Physician Assistant; PCP Internal Medicine
DX: I25.118 Atherosclerotic heart disease of native coronary artery with other forms of angina pectoris (principal); I25.2 Old myocardial infarction; I48.0 Paroxysmal atrial fibrillation; I10 Essential (primary) hypertension; I25.5 Ischemic cardiomyopathy; I48.92 Unspecified atrial flutter; E03.9 Hypothyroidism, unspecified; G62.9 Polyneuropathy, unspecified; Z95.810 Presence of automatic (implantable) cardiac defibrillator; Z85.828 Personal history of other malignant neoplasm of skin; Z87.891 Personal history of nicotine dependence; Z90.49 Acquired absence of other specified parts of digestive tract
CPT/HCPCS: 36415; 71046; 80053; 83690; 84484; 85025; 85610; 85730; 93005; 99284; A9270

== ENCOUNTER 2023-08-08 00:17 | Day surgery (SDC) | payer MEDICARE, SELFPAY ==
[2023-08-07 12:53] VITALS: BMI 32.2
[2023-08-08] VITALS (18 sets, daily range): BP systolic 78–149; BP diastolic 50–95; PULSE 59–60; RESP 12–20; TEMP 36.6; O2SAT 96–100; BMI 32.8
[2023-08-08 09:32] LABS: Basophils Percent Auto 0.5 % (0.2-1.2); Eosinophils Absolute Auto 0.1 K/mm3 (0-0.3); Eosinophils Percent Auto 2.5 % (0-4.4); Hematocrit 41.7 % (42.0-52.0); Hemoglobin 13.8 g/dL (14.0-18.0); Immature Granulocyte Absolute 0.01 K/mm3 (0.00-0.031); Immature Granulocyte Percent A 0.2 % (0-0.5); Lymphocytes Absolute Auto 0.98 K/mm3 (0.9-3.2); Lymphocytes Percent Auto 22.6 % (18.3-44.2); Mean Corpuscular HGB Conc 33.1 g/dl (32-36); Mean Corpuscular Hemoglobin 30.1 pg (26-34); Mean Platelet Volume 10.4 fl (7.4-10.4); Monocytes Absolute Auto 0.5 K/mm3 (0.1-0.6); Monocytes Percent Auto 11.3 % (2.6-8.5); Neutrophils Absolute Auto 2.7 K/mm3 (1.3-6.7); Neutrophils Percent Auto 62.9 % (45.5-73.1); Platelet Count Result 156 k/mm3 (150-375); Red Blood Count 4.58 M/mm3 (4.6-6.20); Red Cell Distribution Width 13.2 % (11.5-14.5); White Blood Count 4.3 K/mm3 (4.5-10.0)
--- NOTE | 2023-08-08 09:34 | WPDHPUPDATE1 ---
History and Physical Update Update Date/Time: 08/08/23 09:34 History and Physical has been reviewed, including an updated exam of the patient. There are NO changes in the patient's condition. Risks, benefits, and alternatives have been discussed and questions answered. Patient agrees to proceed with procedure.
--- NOTE | 2023-08-08 09:34 | WPDMODSED ---
Moderate Sedation Note-Pt Data Patient Data Diagnosis: Chest pain Present Complaint: Chest pain Procedure to be performed/Plan: Coronary angiography, left heart cath, +/- PCI Allergies Allergy/AdvReac Type Severity Reaction Status Date / Time Sulfa (Sulfonamide Allergy Intermediate Rash Verified 08/08/23 09:15 Antibiotics) lisinopril AdvReac Cough Verified 08/08/23 09:15 simvastatin AdvReac Nausea Verified 08/08/23 09:15 spironolactone AdvReac Other Verified 08/08/23 09:15 Home Medications Medication Instructions Recorded Confirmed Type aspirin 81 mg chewable tablet 81 mg PO HS 12/30/19 08/07/23 History dabigatran etexilate 150 mg 150 mg PO BID 12/30/19 08/07/23 History capsule (Pradaxa) eplerenone 25 mg tablet 50 mg PO DAILY 12/30/19 08/08/23 History folic acid 400 mcg tablet 0.4 mg PO DAILY 12/30/19 08/08/23 History furosemide 40 mg tablet 20 mg PO DAILY 12/30/19 08/07/23 History isosorbide mononitrate 120 mg 120 mg PO BID 12/30/19 08/07/23 History tablet,extended release 24 hr multivit with minerals-iron 18 1 tablet PO DAILY 12/30/19 08/07/23 History mg-folic ac 400 mcg-vit K 25 mcg tablet (Adults Multivitamin) nitroglycerin 0.4 mg sublingual 0.4 mg sublingual Q5MIN PRN Chest 12/30/19 08/07/23 History tablet Pain omega 0-ogp-yyb-fish oil 100 1 cap PO HS 12/30/19 08/07/23 History mg-160 mg-1,000 mg capsule (Fish Oil) omeprazole 40 mg capsule,delayed 40 mg PO DAILY 12/30/19 08/07/23 History release rosuvastatin 20 mg tablet 20 mg PO HS 12/30/19 08/07/23 History sacubitril 49 mg-valsartan 51 mg 2 tablet PO BID 12/30/19 08/07/23 History tablet (Entresto) levothyroxine 75 mcg tablet 75 mcg PO DAILY 09/24/20 08/07/23 History metoprolol tartrate 50 mg tablet 75 mg PO BID 09/24/20 08/07/23 History amiodarone 200 mg tablet 100 mg PO DAILY 06/29/21 08/07/23 History linaclotide 145 mcg capsule 145 mcg PO DAILY PRN Abdominal 06/29/21 08/07/23 History (Linzess) Discomfort docusate sodium 100 mg capsule 300 mg PO HS 08/07/23 08/08/23 History (Colace) Current Medications: Active Medications Sodium Chloride (Normal Saline Iv) 500 mls @ 100 mls/hr IV CONT .Q5H NATALI Sedation/Anesthesia: No previous sedation/anesthesia problems (including family history). [facility] Past Medical History Medical History Coronary artery disease History of anterior wall [place] in 1993 status post balloon angioplasty of the LAD. He is a patient of Dr. Tri Nuñez. Essential hypertension Gastroesophageal reflux disease Hyperlipidemia Hypothyroidism Ischemic cardiomyopathy Last ejection fraction was approximately 20%. Status post PM/ICD insertion. Left bundle branch block Metatarsalgia of right foot Paroxysmal atrial fibrillation History of several cardioversions, on long-term anticoagulation. Paroxysmal atrial flutter Status post DC cardioversion on 12/31/2019. 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 Surgical History Surgical History History of cardiac catheterization History of cholecystectomy History of squamous cell carcinoma excision (~05/2016) Excised from the right conchal bowl with FTSG per Dr. Hsu. Presence of combination internal cardiac defibrillator (ICD) and pacemaker [employer] PM/ICD placed in 2000 with history of generator changed x2. Family History Family History Father Acute myocardial infarction Hypertension Coronary artery disease Cerebrovascular accident Sibling Hypertension Coronary artery disease Acute myocardial infarction Sibling Acute myocardial infarction Coronary artery disease Mother Cerebrovascular accident Cancer Social History Social History Social History: Surrogate dec
--- NOTE | 2023-08-08 09:35 | WPDCARDPROC ---
Cardiac Cath Procedure Note Date of procedure:: 08/08/23 Performing physician:: CATHETERIZATION LABORATORY REPORT Procedure Date: 08/08/2023 Caramel Maker: Ifeoma Moreno M.D., [facility]? Referring Physician: Tri Nuñez M.D. Anesthesia: Versed and Fentanyl were ordered and given in my presence at 10:12, procedure ended at 11:42. Supervision of nurse monitored moderate sedation with Versed and Fentanyl was provided for 90 minutes. Patient's case was prolonged because the fluoroscopy machine after start of case had malfunctioned, and patient had to be switched to a different laborer syrup machine room in the middle of the case. Total of Versed 1mg and Fentanyl 50mcg were administered by the Nurse Emergency RN Kelly Duncan. Pre-op Diagnosis: Coronary artery disease Post-op Diagnosis: 1. Heavy calcifications seen throughout the proximal and mid LAD. The LAD has mild diffuse disease with a moderate stenosis in the mid portion of 60-70%. The first diagonal branch is a small caliber vessel with ostial 90% stenosis. 2. Left ventricular end-diastolic pressure is 15mmHg. Procedure(s): 1. Moderate sedation 2. Ultrasound-guided access of the right radial artery 3. Ultrasound-guided access of the right common femoral artery 4. Coronary angiography 5. Left heart cath 6. Angioseal closure of the right common femoral artery Access Site: Right radial artery Right common femoral artery Brief History and Clinical Indications: Patient is a 78 year old male who is referred for [facility] for angina. All risks, benefits and alternatives to left heart catheterization with or without percutaneous coronary intervention was discussed at length with the patient. Risk of complications including but not limited to bleeding, infection, arrhythmia, stroke, worsening kidney function, blood loss, groin hematoma, limb loss, emergency coronary artery bypass grafting, and even were discussed with the patient and all questions were answered. The patient understood and wished to proceed. Time out called, patient name, date of , medical record number, allergies, procedure performed, identify Caramel Maker, patient and staff member concurred with accurate data, procedure carried on. Findings: LEFT HEART CATHETERIZATION FINDINGS: 1. Left main: The left main coronary artery is widely patent without any significant obstructive disease. 2. Left anterior descending: Heavy calcifications seen throughout the proximal and mid LAD. The LAD has mild diffuse disease with a moderate stenosis in the mid portion of 60-70%. The first diagonal branch is a small caliber vessel with ostial 90% stenosis. Remainder of the diagonal branch has mild diffuse disease. 3. Left circumflex: The left circumflex has mild disease in the mid portion. OM-1 has luminal irregularities. OM-2 is a bifurcating vessel, OM branches have luminal irregularities. 4. Right coronary artery: There is mild disease in the mid portion, otherwise the remainder of the RCA has mild luminal irregularities without any significant obstructive angiographic disease. The RCA is the dominant vessel. 5. Left ventricle: A. End-diastolic pressure 15mmHg. B. LV gram deferred. C. No significant gradient across aortic valve on catheter pullback. Description of Procedure: Informed consent signed and placed in the chart. Patient transferred to laborer syrup machine room. Prepped and draped in usual sterile fashion. 2% lidocaine injected subcutaneously in right wrist area. 22-gauge venipuncture catheter used to access the right radial artery with the Seldinger technique. 6-FR slender sheath placed in right radial artery. Nitroglycerine and Verapamil were given intraarterial through the sheath. Versacore wire advanced under fluoroscopy 5F Tig 4 diagnostic catheter engaged Left Main Coronary Artery. There was difficulty maintaining engagement, therefore, catheter was switched out for 5F FL 4 diagnostic catheter. Unable to engage due to signi
[2023-08-08 09:44] LABS: Anion Gap 9 mmol/L (8-16); Blood Urea Nitrogen 14 mg/dL (9-20); Calcium 9.4 mg/dL (8.4-10.2); Carbon Dioxide 25 mmol/L (22-30); Chloride 103 mmol/L (98-107); Estimated CRCL calculation 70 ml/min; Estimated Glomerular Filt Rate > 60; Glucose 118 mg/dL (65-110); Potassium 3.9 mmol/L (3.4-5.0); Sodium 137 mmol/L (137-145)
[2023-08-08 09:45] LABS: INR 1.1; Prothrombin Time 14.4 Seconds (11.1-14.7)
== END 2023-08-08 15:38 | disposition home or self-care (01) ==
PROVIDERS: PCP Internal Medicine; Visit Provider Internal Medicine
PROC: 4A023N7 Measurement of Cardiac Sampling and Pressure, Left Heart, Percutaneous Approach (ICD-10-PCS; CPT 93452; principal; 2023-08-08 10:00)
PROC: (CPT 36140; 2023-08-08 10:00)
DX: I25.119 Atherosclerotic heart disease of native coronary artery with unspecified angina pectoris (principal); I25.2 Old myocardial infarction; I10 Essential (primary) hypertension; E78.5 Hyperlipidemia, unspecified; E03.9 Hypothyroidism, unspecified; I25.5 Ischemic cardiomyopathy; I44.7 Left bundle-branch block, unspecified; I48.0 Paroxysmal atrial fibrillation; G62.9 Polyneuropathy, unspecified; Z79.82 Long term (current) use of aspirin; Z79.01 Long term (current) use of anticoagulants; Z95.810 Presence of automatic (implantable) cardiac defibrillator; Z87.891 Personal history of nicotine dependence
CPT/HCPCS: 36140; 36415; 80048; 85025; 85610; 93458; A9270; C1760; C1769; C1887; C1894; G0269; J1644; J2250; J2305; J3010; J7030; J7040

== ENCOUNTER 2023-08-14 14:04 | Outpatient (CLI) | payer MEDICARE, SELFPAY ==
--- NOTE | ~2023-08-14 | XR_ITS ---
EXAMINATION: XR chest 2V Exam Date/Time: 08/14/2023 14:26 CDT HISTORY: MEDICATION MONITORING ENCOUNTER, CARDIAC STENT X 1WEEK Comparison: 07/31/2023. RESULT: Lines, tubes, and devices: Left chest pacer/AICD with intact leads. Cholecystectomy clips. Lungs and pleura: Clear. Cardiomediastinal silhouette: Stable. Other: No acute osseous or upper abdominal finding. IMPRESSION: No acute cardiopulmonary process. Reviewed, dictated and finalized at location K.
[2023-08-14 15:41] LABS: Anion Gap 3 mmol/L (8-16); Blood Urea Nitrogen 13 mg/dL (9-20); Calcium 9.4 mg/dL (8.4-10.2); Carbon Dioxide 33 mmol/L (22-30); Chloride 100 mmol/L (98-107); Estimated Glomerular Filt Rate > 60; Glucose 94 mg/dL (65-110); Potassium 4.3 mmol/L (3.4-5.0); Sodium 136 mmol/L (137-145)
== END 2023-08-14 14:05 | disposition home or self-care (01) ==
PROVIDERS: PCP Internal Medicine; Visit Provider Internal Medicine Cardiovascular Disease
DX: Z51.81 Encounter for therapeutic drug level monitoring (principal); I50.9 Heart failure, unspecified; I25.5 Ischemic cardiomyopathy; Z79.899 Other long term (current) drug therapy; Z95.5 Presence of coronary angioplasty implant and graft
CPT/HCPCS: 36415; 71046; 80048

== ENCOUNTER 2023-09-09 23:29 | Emergency (ER) | payer MEDICARE, SELFPAY ==
--- NOTE | ~2023-09-09 | XR_ITS ---
Clinical Indication: Shortness of breath PA and lateral views of the chest: Comparison: 08/14/2023 Findings: The lungs are clear, without evidence of focal consolidation or pleural effusion. Cardiome diastinal silhouette is stable, with pacemaker device. Bones and soft tissues are unremarkable. Impression: Clear lungs. Reviewed, dictated and finalized at location . Impression: Clear lungs.
--- NOTE | ~2023-09-09 | CT_ITS ---
CT scan of the Neck Technique: 2.5 mm axial scans were obtained through the neck after intravenous administration of 155 cc Omnipaque 350. Coronal and sagittal reconstructions of the neck were obtained. Dose reduction tech nique was used on this scan by utilizing automated exposure control and iterative reconstruction tech nique. The dose-length product (DLP) was 549.38 mGy-cm. Clinical History: Pain Findings: There is no evidence of any significant cervical lymphadenopathy. Several small, nonenlarged jugulo- digastric and posterior cervical lymph nodes are noted bilaterally. Parapharyngeal spaces appear norm al bilaterally. The parotid and submandibular glands appear normal. The pharyngeal mucosal spaces appear normal. No soft tissue masses are seen in the neck. The thyroid gland appears normal. Images of the lung apices reveal no abnormalities. Impression: No significant abnormalities noted. Reviewed, dictated and finalized at [facility]. Impression: No significant abnormalities noted.
--- NOTE | ~2023-09-09 | CT_ITS ---
Clinical Indication: Shortness of breath CT Scan of the Chest with Contrast: Technique: Contiguous sections were acquired throughout the chest after intravenous administration of 155 cc of Omnipaque 350. Dose reduction technique was used on this scan by utilizing automated expos ure control and iterative reconstruction technique. The dose-length product (DLP) was 1054.28 mGy-cm. Findings: There is no evidence of any significant mediastinal, hilar or axillary lymphadenopathy. There is no f illing defect in the pulmonary arterial tree to suggest pulmonary embolus. There is no evidence of ao rtic dissection or aneurysm. There is no evidence of pleural or pericardial effusion. The lungs are clear. No pulmonary nodules or infiltrates are noted. Images through the upper abdomen reveal no abnormalities. Impression: No evidence of pulmonary embolus, aortic dissection, or aortic aneurysm. Clear lungs. Reviewed, dictated and finalized at [facility]. Impression: No evidence of pulmonary embolus, aortic dissection, or aortic aneurysm. Clear lungs.
--- NOTE | 2023-09-09 23:41 | ECG_ITS ---
Measurements Intervals [place] Rate: 60 P: 14 NC: 132 QRS: -87 QRSD: 221 T: 89 QT: 531 QTc: 531 Interpretive Statements ELECTRONIC ATRIAL PACEMAKER ELECTRONIC VENTRICULAR PACEMAKER ABNORMAL ECG SEE SCANNED COPY FOR SIGNATURE MTDD
[2023-09-09 23:53] VITALS: BP 120/63; PULSE 61; RESP 16; TEMP 36.1; O2SAT 99
[2023-09-10 00:08] LABS: Basophils Percent Auto 0.4 % (0.2-1.2); Eosinophils Absolute Auto 0.1 K/mm3 (0-0.3); Eosinophils Percent Auto 2.4 % (0-4.4); Hematocrit 37.8 % (42.0-52.0); Hemoglobin 12.8 g/dL (14.0-18.0); Immature Granulocyte Absolute 0.02 K/mm3 (0.00-0.031); Immature Granulocyte Percent A 0.4 % (0-0.5); Immature Platelet Fraction Pct 2.6 % (0.9-11.2); Lymphocytes Absolute Auto 0.74 K/mm3 (0.9-3.2); Lymphocytes Percent Auto 13.9 % (18.3-44.2); Mean Corpuscular HGB Conc 33.9 g/dl (32-36); Mean Corpuscular Hemoglobin 30.4 pg (26-34); Mean Corpuscular Volume 89.8 fl (80-100); Monocytes Absolute Auto 0.5 K/mm3 (0.1-0.6); Monocytes Percent Auto 10.2 % (2.6-8.5); Neutrophils Absolute Auto 3.9 K/mm3 (1.3-6.7); Neutrophils Percent Auto 72.7 % (45.5-73.1); Platelet Count Result 135 k/mm3 (150-375); Red Blood Count 4.21 M/mm3 (4.6-6.20); Red Cell Distribution Width 13.7 % (11.5-14.5); White Blood Count 5.3 K/mm3 (4.5-10.0)
[2023-09-10 00:15] LABS: Alanine Aminotransferase 19 U/L (6-50); Albumin Level 4.4 g/dL (3.5-5.1); Alkaline Phosphatase 63 U/L (38-126); Anion Gap 5 mmol/L (4-12); Aspartate Amino Transferase 27 U/L (17-59); Bilirubin,Total 0.7 mg/dL (0.2-1.3); Blood Urea Nitrogen 16 mg/dL (9-20); Calcium 9.1 mg/dL (8.4-10.2); Carbon Dioxide 29 mmol/L (22-30); Chloride 100 mmol/L (98-107); Estimated CRCL calculation 70 ml/min; Estimated Glomerular Filt Rate > 60; Glucose 113 mg/dL (65-110); Potassium 3.8 mmol/L (3.4-5.0); Sodium 134 mmol/L (137-145)
[2023-09-10 00:16] VITALS: PULSE 63; O2SAT 100
[2023-09-10 00:44] LABS: Influenza A QL RT-PCR Negative (Negative); Influenza B QL RT-PCR Negative (Negative); RSV RNA, RT-PCR Negative (Negative); SARS-CoV-2 RNA PCR Negative (Negative)
[2023-09-10 00:56] VITALS: PULSE 62; RESP 23; O2SAT 100
[2023-09-10 01:00] VITALS: PULSE 62; RESP 22; O2SAT 96
[2023-09-10 01:01] LABS: Troponin I 0.012 ng/mL (0.000-0.034)
[2023-09-10 01:07] LABS: Lactic Acid Reflex 0.9 mmol/L (0.7-2.0)
[2023-09-10 01:20] LABS: Strep Group A RT-PCR NOT DETECTED (Negative)
--- NOTE | 2023-09-10 01:40 | ED.GENADULT ---
HPI - General Adult General Chief complaint: Shortness of Breath/Dyspnea Stated complaint: feels like throat is closing up, recent uri Time Seen by Provider: 09/10/23 00:10 History of Present Illness HPI narrative: Patient is a 78-year-old gentleman presents emergency department with chief complaint of shortness of breath patient reports he recently had an upper respiratory infection with sore throat patient was a given Flonase and the patient reports that 18 the sore throat has improved but now has a feeling as though his throat feels full. Patient states he also has a burning sensation in his chest with the cough. The patient denies fever reports that he is concerned that he may have a bacterial infection as he has kids has a upcoming cardiac catheterization planned. Related Data Home Medications Medication Instructions Recorded Confirmed aspirin 81 mg chewable tablet 81 mg PO HS 12/30/19 08/07/23 dabigatran etexilate 150 mg 150 mg PO BID 12/30/19 08/07/23 capsule (Pradaxa) eplerenone 25 mg tablet 50 mg PO DAILY 12/30/19 08/08/23 folic acid 400 mcg tablet 0.4 mg PO DAILY 12/30/19 08/08/23 furosemide 40 mg tablet 20 mg PO DAILY 12/30/19 08/07/23 isosorbide mononitrate 120 mg 120 mg PO BID 12/30/19 08/07/23 tablet,extended release 24 hr multivit with minerals-iron 18 1 tablet PO DAILY 12/30/19 08/07/23 mg-folic ac 400 mcg-vit K 25 mcg tablet (Adults Multivitamin) nitroglycerin 0.4 mg sublingual 0.4 mg sublingual Q5MIN PRN Chest 12/30/19 08/07/23 tablet Pain omega 2-dvf-zve-fish oil 100 1 cap PO HS 12/30/19 08/07/23 mg-160 mg-1,000 mg capsule (Fish Oil) omeprazole 40 mg capsule,delayed 40 mg PO DAILY 12/30/19 08/07/23 release rosuvastatin 20 mg tablet 20 mg PO HS 12/30/19 08/07/23 sacubitril 49 mg-valsartan 51 mg 2 tablet PO BID 12/30/19 08/07/23 tablet (Entresto) levothyroxine 75 mcg tablet 75 mcg PO DAILY 09/24/20 08/07/23 metoprolol tartrate 50 mg tablet 75 mg PO BID 09/24/20 08/07/23 amiodarone 200 mg tablet 100 mg PO DAILY 06/29/21 08/07/23 linaclotide 145 mcg capsule 145 mcg PO DAILY PRN Abdominal 06/29/21 08/07/23 (Linzess) Discomfort docusate sodium 100 mg capsule 300 mg PO HS 08/07/23 08/08/23 (Colace) Allergies Allergy/AdvReac Type Severity Reaction Status Date / Time Sulfa (Sulfonamide Allergy Intermediate Rash Verified 08/08/23 09:15 Antibiotics) lisinopril AdvReac Cough Verified 08/08/23 09:15 simvastatin AdvReac Nausea Verified 08/08/23 09:15 spironolactone AdvReac Other Verified 08/08/23 09:15 Review of Systems Review of Systems: A 10 system review of systems was completed on the patient and is negative except for what is stated in the HPI. Nursing and ancillary documentation was reviewed. [facility] Past Medical History Medical History Coronary artery disease History of anterior wall [place] in 1993 status post balloon angioplasty of the LAD. He is a patient of Dr. Tri Nuñez. Essential hypertension Gastroesophageal reflux disease Hyperlipidemia Hypothyroidism Ischemic cardiomyopathy Last ejection fraction was approximately 20%. Status post PM/ICD insertion. Left bundle branch block Metatarsalgia of right foot Paroxysmal atrial fibrillation History of several cardioversions, on long-term anticoagulation. Paroxysmal atrial flutter Status post DC cardioversion on 12/31/2019. 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 Surgical History Surgical History History of cardiac catheterization History of cholecystectomy History of squamous cell carcinoma excision (~05/2016) Excised from the right conchal bowl with FTSG per Dr. Hsu. Presence of combination internal cardiac defibrillator (ICD) and pacemaker [employer] PM/ICD placed in 2000 with history of generator changed x2. Fami
[2023-09-10] MEDS: methylPREDNISolone SOD SUCC 125 MG VIAL IV PUSH (01:54)
[2023-09-10 02:00] VITALS: PULSE 60; RESP 22; O2SAT 94
[2023-09-10 02:15] VITALS: PULSE 60; RESP 19
[2023-09-10 02:45] VITALS: PULSE 60; RESP 21; O2SAT 98
[2023-09-10 02:51] LABS: Troponin I 0.015 ng/mL (0.000-0.034)
[2023-09-10] MEDS: DOXYCYCLINE HYCLATE 100 MG TABLET PO (03:54)
== END 2023-09-10 03:57 | disposition home or self-care (01) ==
PROVIDERS: Emergency Provider Emergency Medicine; PCP Internal Medicine
DX: J20.8 Acute bronchitis due to other specified organisms (principal); J98.4 Other disorders of lung; Z20.822 Contact with and (suspected) exposure to COVID-19; I25.10 Atherosclerotic heart disease of native coronary artery without angina pectoris; I25.2 Old myocardial infarction; I10 Essential (primary) hypertension; I25.5 Ischemic cardiomyopathy; E78.5 Hyperlipidemia, unspecified; I48.0 Paroxysmal atrial fibrillation; I48.92 Unspecified atrial flutter; K21.9 Gastro-esophageal reflux disease without esophagitis; Z95.810 Presence of automatic (implantable) cardiac defibrillator; Z85.828 Personal history of other malignant neoplasm of skin; Z87.891 Personal history of nicotine dependence; Z90.49 Acquired absence of other specified parts of digestive tract; Z98.61 Coronary angioplasty status; Z79.82 Long term (current) use of aspirin
CPT/HCPCS: 36415; 70491; 71046; 71275; 80053; 83605; 84145; 84484; 85025; 85055; 87637; 87651; 93005; 96374; 99284; A9270; J2919; Q9967

== ENCOUNTER 2023-09-24 07:36 | Outpatient (CLI) | payer MEDICARE, SELFPAY ==
[2023-09-24 08:03] LABS: Basophils Percent Auto 0.7 % (0.2-1.2); Eosinophils Absolute Auto 0.2 K/mm3 (0-0.3); Eosinophils Percent Auto 4.1 % (0-4.4); Hematocrit 40.4 % (42.0-52.0); Hemoglobin 13.4 g/dL (14.0-18.0); Immature Granulocyte Absolute 0.01 K/mm3 (0.00-0.031); Immature Granulocyte Percent A 0.2 % (0-0.5); Immature Platelet Fraction Pct 3.4 % (0.9-11.2); Lymphocytes Absolute Auto 0.81 K/mm3 (0.9-3.2); Lymphocytes Percent Auto 18.3 % (18.3-44.2); Mean Corpuscular HGB Conc 33.2 g/dl (32-36); Mean Corpuscular Hemoglobin 30.5 pg (26-34); Mean Corpuscular Volume 91.8 fl (80-100); Mean Platelet Volume 10.2 fl (7.4-10.4); Monocytes Absolute Auto 0.5 K/mm3 (0.1-0.6); Neutrophils Absolute Auto 2.9 K/mm3 (1.3-6.7); Neutrophils Percent Auto 64.7 % (45.5-73.1); Platelet Count Result 131 k/mm3 (150-375); Red Cell Distribution Width 13.9 % (11.5-14.5); White Blood Count 4.4 K/mm3 (4.5-10.0)
[2023-09-24 08:15] LABS: Alanine Aminotransferase 19 U/L (6-50); Albumin Level 4.2 g/dL (3.5-5.1); Alkaline Phosphatase 55 U/L (38-126); Anion Gap 3 mmol/L (4-12); Aspartate Amino Transferase 25 U/L (17-59); Bilirubin,Total 0.6 mg/dL (0.2-1.3); Blood Urea Nitrogen 16 mg/dL (9-20); Carbon Dioxide 29 mmol/L (22-30); Chloride 104 mmol/L (98-107); Estimated Glomerular Filt Rate > 60; Glucose 120 mg/dL (65-110); Potassium 4.1 mmol/L (3.4-5.0); Sodium 136 mmol/L (137-145)
== END 2023-09-24 07:37 | disposition home or self-care (01) ==
LOC: ANHLAB 07:41
PROVIDERS: PCP Internal Medicine; Visit Provider Internal Medicine Cardiovascular Disease
DX: R07.89 Other chest pain (principal); I25.118 Atherosclerotic heart disease of native coronary artery with other forms of angina pectoris
CPT/HCPCS: 36415; 80053; 85025; 85055

== ENCOUNTER 2023-11-13 08:25 | Outpatient (CLI) | payer MEDICARE, SELFPAY ==
[2023-11-13 10:14] LABS: MALB Creatinine Ratio < 6.7 mg/g (0-30); Microalbumin Urine Random < 6.0 mg/L (0-16.7)
[2023-11-13 10:15] LABS: Iron 84 ug/dL (49-181)
[2023-11-13 10:15] LABS: Appearance Urine Clear (Clear); Bilirubin Urine Negative (Negative); Blood Urine Negative (Negative); Color Urine Yellow (Yellow); Glucose Urine UA 3+ mg/dL (Negative); Ketones Urine Negative (Negative); Leukocyte Esterase Ur Negative LEU/UL (Negative); Nitrate Urine Negative (Negative); Protein Urine Negative (Negative); Urobilinogen Urine 0.2 mg/dL (<2.0)
[2023-11-13 10:16] LABS: Eosinophils Absolute Auto 0.3 K/mm3 (0-0.3); Eosinophils Percent Auto 6.5 % (0-4.4); Hematocrit 39.1 % (42.0-52.0); Hemoglobin 12.9 g/dL (14.0-18.0); Immature Granulocyte Absolute 0.01 K/mm3 (0.00-0.031); Immature Granulocyte Percent A 0.3 % (0-0.5); Lymphocytes Absolute Auto 0.88 K/mm3 (0.9-3.2); Mean Corpuscular Hemoglobin 30.1 pg (26-34); Mean Corpuscular Volume 91.1 fl (80-100); Mean Platelet Volume 10.7 fl (7.4-10.4); Monocytes Absolute Auto 0.5 K/mm3 (0.1-0.6); Monocytes Percent Auto 12.3 % (2.6-8.5); Neutrophils Absolute Auto 2.2 K/mm3 (1.3-6.7); Neutrophils Percent Auto 56.9 % (45.5-73.1); Platelet Count Result 157 k/mm3 (150-375); Red Blood Count 4.29 M/mm3 (4.6-6.20); Red Cell Distribution Width 13.6 % (11.5-14.5); White Blood Count 3.8 K/mm3 (4.5-10.0)
[2023-11-13 10:21] LABS: Add Urine Microscopic? NO
[2023-11-13 12:02] LABS: Creatine Kinase 102 U/L (55-170)
[2023-11-13 12:39] LABS: Hemoglobin A1C 5.8 % (<5.7)
[2023-11-13 14:49] LABS: Alanine Aminotransferase 14 U/L (6-50); Albumin Level 4.5 g/dL (3.5-5.1); Alkaline Phosphatase 55 U/L (38-126); Anion Gap 7 mmol/L (4-12); Aspartate Amino Transferase 26 U/L (17-59); Bilirubin,Total 0.8 mg/dL (0.2-1.3); Blood Urea Nitrogen 14 mg/dL (9-20); Calcium 9.2 mg/dL (8.4-10.2); Carbon Dioxide 25 mmol/L (22-30); Chloride 106 mmol/L (98-107); Cholesterol 151 mg/dL (0-200); Estimated Glomerular Filt Rate > 60; Glucose 100 mg/dL (65-110); HDL Direct 62 mg/dL; Potassium 4.1 mmol/L (3.4-5.0); Sodium 138 mmol/L (137-145); Triglycerides 71 mg/dL (<150)
[2023-11-13 14:54] LABS: NT Pro B Type Natriuretic Pept 466 pg/mL (19.9-100)
[2023-11-13 14:56] LABS: LDL Cholesterol Direct 72 mg/dL
[2023-11-13 15:53] LABS: Folic Acid > 20.0 ng/mL (2.76->20)
[2023-11-14 12:08] LABS: Triiodothyronine T3 Free 2.9 pg/mL (2.3-4.2)
== END 2023-11-13 08:26 | disposition home or self-care (01) ==
PROVIDERS: PCP Internal Medicine; Referring Provider Internal Medicine Cardiovascular Disease; Visit Provider Internal Medicine
DX: I48.0 Paroxysmal atrial fibrillation (principal); R73.01 Impaired fasting glucose; E78.2 Mixed hyperlipidemia; D64.9 Anemia, unspecified; E03.4 Atrophy of thyroid (acquired); I50.9 Heart failure, unspecified; I25.5 Ischemic cardiomyopathy; R07.89 Other chest pain
CPT/HCPCS: 36415; 80053; 80061; 81003; 82043; 82550; 82607; 82728; 82746; 83036; 83540; 83880; 84439; 84443; 84481; 85025

== ENCOUNTER 2023-12-08 18:36 | Observation (INO) | payer MEDICARE, SELFPAY ==
[2023-12-08] VITALS (9 sets, daily range): BP systolic 108–128; BP diastolic 65–70; PULSE 60–71; RESP 15–20; TEMP 36.5–36.6; O2SAT 94–100; BMI 32.6
--- NOTE | ~2023-12-08 | XR_ITS ---
EXAMINATION: XR chest 2V Exam Date/Time: 12/08/2023 19:00 CDT HISTORY: LEFT SIDED CP, 3 STENTS PLACED 1 WK AGO Comparison: 09/10/2023. RESULT: Lines, tubes, and devices: Cholecystectomy clips. Left chest pacer/AICD with intact leads. Coronary stent. Lungs and pleura: Clear. Cardiomediastinal silhouette: Stable. Other: No acute osseous or upper abdominal finding. IMPRESSION: No acute cardiopulmonary process. Reviewed, dictated and finalized at location K.
--- NOTE | 2023-12-08 18:41 | ECG_ITS ---
Test Date: 2023-12-08 18:45:18 Measurements Intervals [place] Rate: 71 P: 23 [place]: 114 QRS: -84 QRSD: 218 T: 100 QT: 485 QTc: 531 Interpretive Statements ELECTRONIC VENTRICULAR PACEMAKER BASELINE ARTIFACT- I, III, AVR, AVL, V2 NO FURTHER INTERPRETATION IS POSSIBLE ATYPICAL ECG No previous ECG available for comparison Electronically Signed On 12-09-2023 07:32:35 CDT by Sadi Ibrahim D.O.
--- NOTE | 2023-12-08 18:55 | PC.NURSE ---
Patient states he took one nitro tablet an hour ago and no relief.
[2023-12-08 18:56] LABS: Basophils Percent Auto 0.4 % (0.2-1.2); Eosinophils Absolute Auto 0.1 K/mm3 (0-0.3); Hematocrit 37.8 % (42.0-52.0); Hemoglobin 12.8 g/dL (14.0-18.0); Immature Granulocyte Absolute 0.01 K/mm3 (0.00-0.031); Immature Granulocyte Percent A 0.2 % (0-0.5); Lymphocytes Absolute Auto 0.95 K/mm3 (0.9-3.2); Lymphocytes Percent Auto 20.5 % (18.3-44.2); Mean Corpuscular HGB Conc 33.9 g/dl (32-36); Mean Corpuscular Hemoglobin 30.4 pg (26-34); Mean Corpuscular Volume 89.8 fl (80-100); Mean Platelet Volume 9.7 fl (7.4-10.4); Monocytes Absolute Auto 0.6 K/mm3 (0.1-0.6); Monocytes Percent Auto 13.6 % (2.6-8.5); Neutrophils Absolute Auto 2.9 K/mm3 (1.3-6.7); Neutrophils Percent Auto 62.3 % (45.5-73.1); Platelet Count Result 173 k/mm3 (150-375); Red Blood Count 4.21 M/mm3 (4.6-6.20); Red Cell Distribution Width 13.3 % (11.5-14.5); White Blood Count 4.6 K/mm3 (4.5-10.0)
[2023-12-08] MEDS: ASPIRIN 81 MG CHEWABLE TABLET 324 MG PO (18:57)
[2023-12-08 19:06] LABS: Alanine Aminotransferase 14 U/L (6-50); Albumin Level 4.5 g/dL (3.5-5.1); Alkaline Phosphatase 56 U/L (38-126); Anion Gap 9 mmol/L (4-12); Aspartate Amino Transferase 32 U/L (17-59); Bilirubin,Total 0.7 mg/dL (0.2-1.3); Blood Urea Nitrogen 15 mg/dL (9-20); Calcium 9.2 mg/dL (8.4-10.2); Carbon Dioxide 25 mmol/L (22-30); Chloride 104 mmol/L (98-107); Estimated CRCL calculation 77 ml/min; Estimated Glomerular Filt Rate > 60; Glucose 109 mg/dL (65-110); INR 1.1; Lipase 68 U/L (23-300); Potassium 4.1 mmol/L (3.4-5.0); Prothrombin Time 14.6 Seconds (11.1-14.7); Sodium 138 mmol/L (137-145)
[2023-12-08 19:07] LABS: Partial Thromboplastin Time 36.2 Seconds (22.3-36.8)
[2023-12-08 19:18] LABS: Troponin I < 0.012 ng/mL (0.000-0.034)
--- NOTE | 2023-12-08 19:25 | ED.CHESTPAIN ---
HPI - Chest Pain General Chief Complaint: Chest Pain Stated Complaint: CHEST PAIN, HX OF STENTS AT [facility] 1WK AGO Time Seen by Provider: 12/08/23 19:03 History of Present Illness HPI narrative: Patient presenting here with chest pain that started this morning, describes as a heavy squeezing pain, with some shortness of breath. Yesterday had some mild spasms but not too bad, today had worse pain than he ever had. Had stents placed 1 week ago. Pain is nonradiating. No focal numbness or weakness. Has been taking all his medications as prescribed Related Data Home Medications Medication Instructions Recorded Confirmed aspirin 81 mg chewable tablet 81 mg PO HS 12/30/19 08/07/23 dabigatran etexilate 150 mg 150 mg PO BID 12/30/19 08/07/23 capsule (Pradaxa) eplerenone 25 mg tablet 25 mg PO HS 12/30/19 12/08/23 folic acid 400 mcg tablet 0.4 mg PO DAILY 12/30/19 12/08/23 furosemide 40 mg tablet 20 mg PO DAILY 12/30/19 08/07/23 isosorbide mononitrate 120 mg 120 mg PO BID 12/30/19 08/07/23 tablet,extended release 24 hr multivit with minerals-iron 18 1 tablet PO DAILY 12/30/19 08/07/23 mg-folic ac 400 mcg-vit K 25 mcg tablet (Adults Multivitamin) nitroglycerin 0.4 mg sublingual 0.4 mg sublingual Q5MIN PRN Chest 12/30/19 12/08/23 tablet Pain omega 6-hmw-hgn-fish oil 100 1 cap PO HS 12/30/19 08/07/23 mg-160 mg-1,000 mg capsule (Fish Oil) omeprazole 40 mg capsule,delayed 40 mg PO DAILY 12/30/19 08/07/23 release rosuvastatin 20 mg tablet 20 mg PO HS 12/30/19 08/07/23 sacubitril 49 mg-valsartan 51 mg 2 tablet PO Q12H 12/30/19 12/08/23 tablet (Entresto) levothyroxine 75 mcg tablet 75 mcg PO DAILY 09/24/20 08/07/23 amiodarone 200 mg tablet 100 mg PO DAILY 06/29/21 12/08/23 linaclotide 145 mcg capsule 145 mcg PO DAILY PRN Abdominal 06/29/21 08/07/23 (Linzess) Discomfort docusate sodium 100 mg capsule 300 mg PO HS 08/07/23 12/08/23 (Colace) dapagliflozin propanediol 10 mg 10 mg PO QNOON 12/08/23 12/08/23 tablet (Farxiga) metoprolol succinate 25 mg 25 mg PO DAILY 12/08/23 12/08/23 tablet,extended release 24 hr Allergies Allergy/AdvReac Type Severity Reaction Status Date / Time Sulfa (Sulfonamide Allergy Intermediate Rash Verified 12/08/23 22:55 Antibiotics) lisinopril AdvReac Cough Verified 12/08/23 22:55 simvastatin AdvReac Nausea Verified 12/08/23 22:55 spironolactone AdvReac Other Verified 12/08/23 22:55 Review of Systems Review of Systems: All systems reviewed & are unremarkable except as noted in HPI and below PMFSH Past Medical History Medical History Coronary artery disease History of anterior wall [place] in 1993 status post balloon angioplasty of the LAD. He is a patient of Dr. Tri Nuñez. Essential hypertension Gastroesophageal reflux disease Hyperlipidemia Hypothyroidism Ischemic cardiomyopathy Last ejection fraction was approximately 20%. Status post PM/ICD insertion. Left bundle branch block Metatarsalgia of right foot Paroxysmal atrial fibrillation History of several cardioversions, on long-term anticoagulation. Paroxysmal atrial flutter Status post DC cardioversion on 12/31/2019. 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 Surgical History Surgical History History of cardiac catheterization History of cholecystectomy History of squamous cell carcinoma excision (~05/2016) Excised from the right conchal bowl with FTSG per Dr. Hsu. Presence of combination internal cardiac defibrillator (ICD) and pacemaker [employer] PM/ICD placed in 2000 with history of generator changed x2. Family History Family History Father Acute myocardial infarction Hypertension Coronary artery disease Cerebrovascular accident Sibling Hypertension
[2023-12-08] MEDS: MORPHINE SULFATE (*CRX) 4 MG/ML INJ IV PUSH (20:40)
--- NOTE | 2023-12-08 21:29 | ECG_ITS ---
Test Date: 2023-12-08 21:40:06 Measurements Intervals [place] Rate: 63 P: 34 [place]: 114 QRS: -79 QRSD: 222 T: 93 QT: 527 QTc: 541 Interpretive Statements ATRIAL SENSE- ELECTRONIC VENTRICULAR PACEMAKER BASELINE ARTIFACT- I, II, AVR NO FURTHER INTERPRETATION IS POSSIBLE ATYPICAL ECG Compared to ECG 12/08/2023 18:45:18 No significant changes Electronically Signed On 12-09-2023 07:44:06 CDT by Sadi Ibrahim D.O.
[2023-12-08 22:05] LABS: Troponin I 0.012 ng/mL (0.000-0.034)
--- NOTE | 2023-12-08 23:36 | ADMGEN ---
This patient, Andrés Mcneal, was admitted to IMU Room 200-01 at 2225. Patient/family oriented to hospital policies and general routines including ID bracelet, bed and alarms, visiting hours, pain management, procedures, bathroom and other care routines, personal items, smoking policy, room service/diet, and visiting hours. Information on how to activate the Rapid Response Team has been discussed. Patient/Family are encouraged to report perceived risks to care and to ask questions if they do not understand what they are told or what they should do.
[2023-12-09] VITALS (19 sets, daily range): BP systolic 96–137; BP diastolic 50–70; PULSE 52–70; RESP 12–24; TEMP 36–36.7; O2SAT 94–100
[2023-12-09 01:22] LABS: Troponin I 0.014 ng/mL (0.000-0.034)
[2023-12-09] MEDS: DOCUSATE SODIUM 100 MG CAPSULE 300 MG PO ×2 (01:28→20:27)
[2023-12-09] MEDS: APIXABAN 5 MG TABLET PO (01:28)
[2023-12-09] MEDS: SACUBITRIL/VALSARTAN 49-51 MG TABLET 2 TABLET PO ×3 (01:38→20:27)
--- NOTE | 2023-12-09 04:45 | PM.IMHP ---
H&P: HPI History of Present Illness Date/Time: 12/09/23 04:45 Chief Complaint: Chest pain Narrative: 78-year-old male with a past medical history of coronary artery disease with distant history of remote anterior wall [place], ischemic cardiomyopathy with EF of 30%, with recent heart catheterization August 2023 and repeat catheterization approximately 7-10 days ago at [facility] with 3 stents placed, pacemaker placement with ICD insertion, paroxysmal atrial fibrillation/flutter who presented to the ER with substernal chest pain consistent with his prior episodes of angina. The patient reports that ever since he had his catheterization about 10 days ago where he received 2 stents to the LAD and 1 stent to another with he had not had any chest pain. Then day before yesterday he had some brief episodes of chest pain that were transient and he did not find those concerning. But then Sunday developed substernal chest pain that was similar to, but worse than he has ever had before, the pain that resulted in him having his last 2 cardiac catheterizations. He reports that the pain was more intense and more persistent. He did not notice any associated palpitations, shortness of breath, lower extremity swelling, orthopnea or paroxysmal nocturnal dyspnea. He has been compliant with his Plavix and Eliquis. He reports that the pain is exacerbated with activity and does seem to improve when he lays down to rest. It was unrelieved with nitro when it occurred on Sunday.. He was afraid to take a 2nd dose of nitro while driving so came to the ER. He denies any radiation of the pain. His pain resolved after he received morphine 4 mg. Review of Systems Review of Systems: 12 systems were reviewed with pertinent positives and negatives per HPI. Except as documented in the HPI, all other systems were reviewed and are negative. [facility] Past Medical History Medical History (Updated 12/09/23 @ 07:22 by Rosalinda Sage DO) Coronary artery disease History of anterior wall [place] in 1993 status post balloon angioplasty of the LAD. Essential hypertension Gastroesophageal reflux disease Hyperlipidemia Hypothyroidism Ischemic cardiomyopathy Last ejection fraction was approximately 20%. Status post PM/ICD insertion. Left bundle branch block Metatarsalgia of right foot Paroxysmal atrial fibrillation History of several cardioversions, on long-term anticoagulation. Paroxysmal atrial flutter Status post DC cardioversion on 12/31/2019. 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 Surgical History Surgical History (Updated 12/09/23 @ 07:25 by Rosalinda Sage DO) History of cardiac catheterization History of cholecystectomy History of squamous cell carcinoma excision (~05/2016) Excised from the right conchal bowl with FTSG per Dr. Hsu. Presence of combination internal cardiac defibrillator (ICD) and pacemaker [employer] PM/ICD placed in 2000 with history of generator changed x2. Status post cataract extraction of both eyes with insertion of intraocular lens Family History Family History Father Coronary artery disease Acute myocardial infarction Hypertension Cerebrovascular accident Sibling Coronary artery disease Acute myocardial infarction Hypertension Sibling Coronary artery disease Acute myocardial infarction Mother Cerebrovascular accident Uterine cancer Social History Social History (Updated 12/09/23 @ 07:23 by Rosalinda Sage DO) Social History: Surrogate decision maker: Susana Mcneal, spouse. Code status: Full code. Smoking packs per day: 0.5 Smoking cigarettes per day: 10.0 Smoking status: Former smoker Tobacco type: cigarettes Second hand tobacco smoke exposure: Yes Smoking end date: 06/04/73 Alcohol intake: never Alcohol use details: rare 2-3 drinks/year Substance use: never
[2023-12-09] MEDS: LEVOTHYROXINE SODIUM 75 MCG TABLET PO (06:16)
[2023-12-09] MEDS: LINACLOTIDE 145 MCG CAPSULE PO (06:51)
[2023-12-09] MEDS: METOPROLOL SUCCINATE EXT REL 25 MG TABCR PO (09:34)
[2023-12-09] MEDS: ISOSORBIDE MONONITRATE 60 MG TAB.ER.24H PO (09:34)
[2023-12-09] MEDS: MULTIVITAMINS /C LUTEIN (CENTRUM SILVER) TABLET *BKC 1 TAB PO (09:34)
[2023-12-09] MEDS: FOLIC ACID 0.4 MG TABLET PO (09:34)
[2023-12-09] MEDS: AMIODARONE HCL 100 MG TABLET PO (09:35)
[2023-12-09] MEDS: FUROSEMIDE 20 MG TABLET PO (09:35)
[2023-12-09] MEDS: PANTOPRAZOLE 40 MG TABLET PO (09:35)
--- NOTE | 2023-12-09 10:31 | PM.IMPN ---
Progress Note: A&P Assessment and Plan (1) Unstable angina: Code(s): I20.0 - Unstable angina Status: Acute Assessment and Plan: Episode mimics the pain he had prior to his cardiac stents last week at [facility] -troponins negative x3 -EKG with atrial ventricular pace -patient has been asymptomatic today -he continues on Eliquis (history of AFib) and Plavix. He was never prescribed aspirin (I do not have the records) -cardiology consulted. Will hold the Eliquis until a plan is made. Discussed with Cardiology (2) Ischemic cardiomyopathy: Code(s): I25.5 - Ischemic cardiomyopathy Status: Acute Assessment and Plan: Status post [address] Aguila last week -continue telemetry and monitor for symptoms -discussed with cardiology (3) ICD (implantable cardioverter-defibrillator) in place: Code(s): Z95.810 - Presence of automatic (implantable) cardiac defibrillator Status: Acute Assessment and Plan: EKG consistent with atrioventricular pacemaker (4) Paroxysmal atrial fibrillation: Code(s): I48.0 - Paroxysmal atrial fibrillation Status: Acute Assessment and Plan: On Eliquis and amiodarone at home and paced -will restart AC once cardiology sees pt. Last dose 130am Plan continue levothyroxine. Last TSH WNL last month Time Spent With Patient Time with patient: 25 - 35 minutes Subjective Date/time seen: 12/09/23 10:31 Interval history: Pt is a 78-year-old male here for chest pain. Patient states he has not had any chest pain today so far. He feels much better and in his normal state of health at this time. He does describe the chest pain yesterday matching his prior symptoms before his cardiac stents were placed. He also does mention that these were much worse than he has ever had. Today he has no shortness of breath, orthopnea, fevers, chills, nausea, vomiting or diarrhea. He sees Dr. Aguila and Dr. Mckeon. He is on Eliquis (on prior to the stents, for afib and Plavix but not on aspirin as he was never prescribed aspirin. He has been taking all of his medications. Review of Systems Review of Systems: All systems reviewed & are unremarkable except as noted in HPI and below Exam Narrative: General: Well developed well nourished patient in NAD HEENT: normocephalic Neck: supple Neuro: Alert and oriented x4 CV:RRR. Tele with AV pace Resp:CTA Abd: Soft, non distended. No pain to palpation. Positive bowel sounds Extremities: No swelling, erythema, or pain to palpation. Objective Data Vital Signs Vital Signs: Vital Signs - 24 hr 12/08/23 18:44 12/08/23 18:49 12/08/23 18:53 Temperature 97.7 F Pulse Rate 71 Respiratory Rate 16 Blood Pressure 128/70 Pulse Oximetry 100 100 100 Oxygen Delivery Room Air Room Air Room Air 12/08/23 18:55 12/08/23 19:49 12/08/23 21:07 Temperature Pulse Rate 64 63 60 Respiratory Rate 16 20 15 Blood Pressure 128/70 108/65 114/66 Pulse Oximetry 100 98 100 Oxygen Delivery 12/08/23 22:15 12/08/23 22:25 12/08/23 22:34 Temperature 97.8 F Pulse Rate 67 68 70 Respiratory Rate 20 18 Blood Pressure 111/67 121/67 Pulse Oximetry 94 98 Oxygen Delivery 12/09/23 00:00 12/09/23 00:00 12/09/23 00:00 Temperature 97.6 F Pulse Rate 60 63 Respiratory Rate 18 Blood Pressure 137/63 Pulse Oximetry 99 Oxygen Delivery Room Air 12/09/23 02:00 12/09/23 03:56 12/09/23 04:00 Temperature 96.8 F L Pulse Rate 61 60 Respiratory Rate 19 Blood Pressure 122/63 Pulse Oximetry 96 Oxygen Delivery Room Air 12/09/23 04:00 12/09/23 06:00 12/09/23 07:57 Temperature Pulse Rate 61 62 Respiratory Rate Blood Pressure Pulse Oximetry 94 Oxygen Delivery Room Air 12/09/23 08:00 12/09/23 08:00 12/09/23 09:34 Temperature 97.7 F Pulse Rate 60 63 63 Respiratory Rate 12 Blood Pressure 118/67 Pulse Oximetry 99 Oxygen
[2023-12-09 10:35] LABS: NT Pro B Type Natriuretic Pept 338 pg/mL (19.9-100)
[2023-12-09 11:33] LABS: Troponin I 0.015 ng/mL (0.000-0.034)
--- NOTE | 2023-12-09 11:57 | PM.CNCAR ---
Assessment and Plan Assessment and plan (1) Chest pain at rest: Code(s): R07.9 - Chest pain, unspecified Status: Acute Plan This is a 78-year-old man with a complicated cardiac history as detailed above. He comes in with chest pain that was going on most of the day yesterday obviously concerning because of his recent complex LAD/diagonal bifurcation stent procedure. Fortunately there is no significant evidence of acute myocardial injury by troponins and he is asymptomatic today. Because he has not had any recent atrial fibrillation I am going to recommend stopping anticoagulation for the time being and providing standard dual anti-platelet therapy in the form of aspirin and clopidogrel. I understand the reason/desire to avoid triple therapy on the other hand his recent tick complex LAD bifurcation stent would make dual anti-platelet therapy very important in my opinion. If he remains asymptomatic I would consider the option of discharging him tomorrow. 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 Antonio Bone MD [facility] History of Present Illness History of Present Illness Consult date/time: 12/09/23 11:57 Reason For Visit: Chest pain s/p cath Narrative: This is a very pleasant 78-year-old man I am seeing at the request of the hospitalist because of chest pain with which he was seen in the ER last evening and subsequently admitted to the hospital. The patient is a long-standing patient of our practice but is not really known to me specifically. He has a very complex history of coronary artery disease, ischemic cardiomyopathy with low ejection fraction, chronically implanted pacemaker for complete heart block which was last year upgraded to a Bi V ICD device at [facility]. He also has a history of chronic atrial fibrillation, currently in sinus rhythm with amiodarone treatment and a recent somewhat complicated percutaneous intervention involving the LAD/diagonal bifurcation about 2 weeks ago at [facility]. The patient was in his usual state at home of health at home when yesterday earlier in the day he began to have some dull aching, pressure-like pain in the substernal region that obviously concerned him enough later in the day to come into the emergency room. He did take a couple of nitroglycerin tablets for this during the course of the day which did not really affect the symptom 1 way or the other. Because of persistence of symptoms he came to the emergency department. His electrocardiogram is unhelpful for diagnosis of MS/ischemia as he is in a ventricularly paced rhythm. His troponin levels have been checked x3 sets and are essentially negative. He feels well this morning and denies any other complaints at this time. The patient has a history of acute anterior wall myocardial infarction long time ago and underwent PCI of the anterior descending. He underwent catheterization here at this hospital August of this year where he was found to have a high-grade stenosis in the diagonal branch of the LAD at its ostium and also moderate stenosis in the LAD in this region as well. He was initially started on medical therapy for this but continued to have symptoms of chest pain raising concern. Interestingly he had a elegant viability study with an FDG PET scan which demonstrated the absence of viability in the LAD territory. Despite this with symptoms he was referred for higher risk PCI. He underwent this procedure on 11/29/2023 over at [facility] undergoing a LAD/diagonal bifurcation stent using the mini crush technique. He was discharged after the intervention without any complications. The decision was made at that time to discharge him on clopidogrel and apixaban with the absence of aspirin review of his recent ICD checks demonstrate there is no evidence of rec
[2023-12-09] MEDS: ASPIRIN 81 MG ENTERIC TABLET PO (13:06)
[2023-12-09] MEDS: CLOPIDOGREL BISULFATE 75 MG TABLET PO (13:06)
[2023-12-09] MEDS: EMPAGLIFLOZIN 10 MG TABLET PO (13:18)
[2023-12-09] MEDS: OMEGA 3 POLYUNSAT FATTY ACIDS 1 GM CAP PO (20:27)
[2023-12-09] MEDS: ROSUVASTATIN 20 MG TABLET PO (20:27)
[2023-12-10] VITALS (16 sets, daily range): BP systolic 88–121; BP diastolic 45–69; PULSE 60–67; RESP 16; TEMP 36–36.4; O2SAT 94–100
[2023-12-10] MEDS: LEVOTHYROXINE SODIUM 75 MCG TABLET PO (06:58)
[2023-12-10] MEDS: LINACLOTIDE 145 MCG CAPSULE PO (07:36)
[2023-12-10] MEDS: AMIODARONE HCL 100 MG TABLET PO (09:17)
[2023-12-10] MEDS: FUROSEMIDE 20 MG TABLET PO (09:17)
[2023-12-10] MEDS: ASPIRIN 81 MG ENTERIC TABLET PO (09:18)
[2023-12-10] MEDS: MULTIVITAMINS /C LUTEIN (CENTRUM SILVER) TABLET *BKC 1 TAB PO (09:18)
[2023-12-10] MEDS: METOPROLOL SUCCINATE EXT REL 25 MG TABCR PO (09:18)
[2023-12-10] MEDS: PANTOPRAZOLE 40 MG TABLET PO (09:18)
[2023-12-10] MEDS: SACUBITRIL/VALSARTAN 49-51 MG TABLET 2 TABLET PO (09:19)
[2023-12-10] MEDS: FOLIC ACID 0.4 MG TABLET PO (09:19)
[2023-12-10] MEDS: ISOSORBIDE MONONITRATE 60 MG TAB.ER.24H PO (09:19)
--- NOTE | 2023-12-10 10:14 | PM.PNCARD ---
Progress Note: A&P Assessment and Plan (1) Chest pain at rest: Code(s): R07.9 - Chest pain, unspecified Status: Acute Assessment and Plan: This is a 78-year-old man with a complicated cardiac history as detailed above. He comes in with chest pain that was going on most of the day yesterday obviously concerning because of his recent complex LAD/diagonal bifurcation stent procedure. Fortunately there is no significant evidence of acute myocardial injury by troponins and he is asymptomatic. Uncertain as to the etiology of his chest pain, possibly GI but troponins are negative in no evidence of acute stent thrombosis. Continue dual anti-platelet therapy with aspirin and clopidogrel. Will monitor his rhythm through his device and reintroduce full anticoagulation as an outpatient. (2) Coronary artery disease: Code(s): I25.10 - Atherosclerotic heart disease of [place] coronary artery without angina pectoris Status: Acute Assessment and Plan: As detailed above (3) Essential hypertension: Code(s): I10 - Essential (primary) hypertension Status: Acute Assessment and Plan: At goal (4) Paroxysmal atrial fibrillation: Code(s): I48.0 - Paroxysmal atrial fibrillation Status: Acute Assessment and Plan: No recent evidence of atrial fibrillation. Continue amiodarone. Resume anticoagulation as an outpatient Plan Okay for discharge from my perspective Subjective Date/time seen: 12/10/23 10:14 Interval history: 78-year-old man I am seeing at the request of the hospitalist because of chest pain with which he was seen in the ER last evening and subsequently admitted to the hospital. The patient is a long-standing patient of our practice but is not really known to me specifically. He has a very complex history of coronary artery disease, ischemic cardiomyopathy with low ejection fraction, chronically implanted pacemaker for complete heart block which was last year upgraded to a Bi V ICD device at [facility]. Date of service 12/10/2023: Feels good. Wants to go home. No chest pain, shortness of breath Review of Systems Review of Systems: All systems reviewed & are unremarkable except as noted in HPI and below Eyes: Eyes: Denies blurry vision ENT: Reports Normal hearing present Cardiovascular: Cardiovascular: Denies chest pain, Denies leg edema and Denies lightheadedness Respiratory: Respiratory: Denies chest congestion, Denies cough and Denies hemoptysis Gastrointestinal: Gastrointestinal: Denies abdominal pain Genitourinary: Genitourinary: Denies hematuria Musculoskeletal: Musculoskeletal: Denies back pain Integumentary/Breasts: Skin/Breast: Denies erythema Neurologic: Denies Abnormal speech present Psychiatric: Psychiatric: Denies anxiety Endocrine: Endocrine: Denies change in body appearance Exam Const: General: comfortable and no acute distress Other: Well-developed well-nourished gentleman appears his stated age the comfortable cooperative in no distress at this time HENMT: Mouth: Yes moist mucous membranes Eyes: Sclera: sclerae normal Neck: Neck: supple and no JVD Resp: Effort & Inspection: normal respiratory effort Auscultation: clear to auscultation bilaterally Cardio: Rate: regular rate Rhythm: regular rhythm Other: PMI is laterally displaced, no murmur no gallop GI: Auscultation: normal bowel sounds Skin: General skin exam: normal color Neuro: Speech: normal speech Other: Alert and oriented x3 Extrem: Other: Warm, good perfusion, no edema Psych: Mental Status: mental status grossly normal Objective Data Vital Signs Vital Signs: Vital Signs - 24 hr 12/09/23 11:36 12/09/23 12:00 12/09/23 14:00 Temperature 36.6 C Pulse Rate 61 66 60 Respiratory Rate 24 H Blood Pressure 116/70 Pulse Oximetry 98 Oxygen Delivery 12/09/23 12:00 12/09/23 16:00 12/09/23 16:00
--- NOTE | 2023-12-10 11:21 | PM.DS ---
DS: Admitting Diagnosis Discharge Date 12/10/23 Admitting Diagnosis chest pain DS: Discharge Diagnosis Discharge Diagnosis (1) Chest pain at rest: Code(s): R07.9 - Chest pain, unspecified Status: Acute Plan chest pain with recent stents. Recommendation from cardiology to change from Plavix and Eliquis to aspirin/Plavix with recent stents. will need to consider anticoagulation in the future DS: Summary Hospital Course Reason for hospitalization: chest pain Hospital Course: patient is a 78-year-old male with past medical history of essential hypertension, paroxysmal atrial fibrillation on Eliquis, status post permanent pacemaker with ICD, CAD status post recent complex LAD/diagonal bifurcation stent, paroxysmal atrial fibrillation, ischemic cardiomyopathy 30% EF presents to ED with complaints of chest pain on 12/09/2023. prior to admission patient had been on Eliquis and Plavix alone without aspirin to avoid triple therapy after his stent was placed. troponins are negative, patient's chest pain resolved spontaneously. No symptoms or findings for concern of in stent thrombosis or stent failure. no EKG changes. cardiology has reviewed the case and recommended treating with aspirin and Plavix due until bit therapy for the meantime and consider Eliquis down the road. I have given aspirin prescription and held Eliquis. At time of discharge patient's labs stable, vitals stable, patient is stable for discharge home. Patient understands and agrees with plan. Status at Discharge Cognitive/behavioral status at discharge: baseline Time Spent with Patient Time attestation: Total time spent providing and/or coordinating discharge services: 35 minutes Exam Narrative: - GENERAL: pleasant older male in no acute distress. Well-nourished. - EYES: EOMI. Anicteric. - HENT: Moist mucous membranes. - LUNGS: Clear to auscultation bilaterally, no wheezing, rhonchi, or rales. - CARDIOVASCULAR: Regular rate and rhythm. No murmur. No JVD. - ABDOMEN: Soft, non-tender and non-distended. No palpable masses. - EXTREMITIES: No edema. Peripheral pulses 2+. Non-tender. - NEUROLOGIC: No focal neurological deficits. CN II-XII grossly intact. - PSYCHIATRIC: Awake, Alert and oriented x 3. Appropriate mood and affect. - SKIN: No rashes or lesions. Warm. - LYMPH: No cervical lymphadenopathy. DS: Data Data Completed and Pending Labs on day of discharge: Labs from last 24 hours 12/09/23 11:03 Troponin I 0.015 Imaging Radiologist's impression: CXR 12/08/23 IMPRESSION: No acute cardiopulmonary process. Discharge Plan Discharge Attending physician on discharge: Fabio Nieves Consulting providers: Antonio Bone Discharging Clinician: Fabio Nieves Anticipated Discharge Date/Time: 12/10/23 11:19 Patient Disposition: Home, Self-Care Activity: may shower Diet: heart healthy Discharge Instructions: Please continue aspirin and Plavix for dual antiplatelet therapy for the cardiac stents. 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 Please follow-up with cardiology. Patient Instructions: Antibiotic Form, Apixaban (By mouth), Heart Failure (DC), Coronary Artery Disease (DC), Chest Pain (DC), Safe Use of Anticoagulants (DC) Patient Language: [place] Stand Alone Forms: General Discharge Information Follow-up/Referrals: Antonio Bone MD [Physician] - 4 Weeks Abraham Leon MD [Primary Care Provider] - 1 Week Discharge Medications: New aspirin 81 mg Tablet,Delayed Release (Dr/Ec) 81 mg PO QAM 30 Days Qty: 30 5RF Continued Linzess 145 mcg capsule 145 mcg PO DAILY Rx Instructions: Pt states he takes daily. take 30 mins before 1st meal of the day metoprolol succinate 25 mg tablet extended release 24 hr 25 mg PO DAILY dapagliflozin propanediol [Farxiga] 10 mg tablet 10 mg PO QNOON isosorbide mononitrate 60 mg
[2023-12-10] MEDS: CLOPIDOGREL BISULFATE 75 MG TABLET PO (12:47)
[2023-12-10] MEDS: EMPAGLIFLOZIN 10 MG TABLET PO (12:47)
== END 2023-12-10 14:00 | disposition home or self-care (01) ==
LOC: ANHED 19:18 → ANHIMU 23:38
PROVIDERS: Emergency Medicine; Admitting Provider Internal Medicine; Emergency Provider Emergency Medicine; PCP Internal Medicine; Visit Provider Physician Assistant
DX: R07.9 Chest pain, unspecified (principal); I25.10 Atherosclerotic heart disease of native coronary artery without angina pectoris; R06.02 Shortness of breath; I25.5 Ischemic cardiomyopathy; I10 Essential (primary) hypertension; I25.2 Old myocardial infarction; E78.5 Hyperlipidemia, unspecified; E03.9 Hypothyroidism, unspecified; I44.7 Left bundle-branch block, unspecified; I48.0 Paroxysmal atrial fibrillation; I48.92 Unspecified atrial flutter; G62.9 Polyneuropathy, unspecified; Z95.810 Presence of automatic (implantable) cardiac defibrillator; Z95.5 Presence of coronary angioplasty implant and graft; Z79.82 Long term (current) use of aspirin; Z79.01 Long term (current) use of anticoagulants; Z79.84 Long term (current) use of oral hypoglycemic drugs; Z79.02 Long term (current) use of antithrombotics/antiplatelets; Z87.891 Personal history of nicotine dependence
CPT/HCPCS: 36415; 71046; 80053; 83690; 83880; 84484; 85025; 85610; 85730; 93005; 96374; 99285; A9270; G0378; J2270

== ENCOUNTER 2024-02-05 14:21 | Outpatient (CLI) | payer MEDICARE, SELFPAY ==
[2024-02-05 14:41] LABS: Basophils Absolute Auto 0.03 K/mm3 (0.00-0.10); Basophils Percent Auto 0.7 % (0.0-1.0); Eosinophils Absolute Auto 0.09 K/mm3 (0.02-0.50); Hematocrit 40.9 % (37.0-46.0); Hemoglobin 13.6 g/dL (12.4-15.3); Immature Granulocyte Absolute 0.01 K/mm3 (0.00-0.00); Immature Granulocyte Percent A 0.2 % (0.0-0.0); Lymphocytes Absolute Auto 1.08 K/mm3 (1.10-4.50); Lymphocytes Percent Auto 24.5 % (18.0-42.0); Mean Corpuscular HGB Conc 33.3 g/dL (32-36); Mean Corpuscular Hemoglobin 28.9 pg (27.0-31.0); Mean Corpuscular Volume 86.8 fL (78.0-102.0); Mean Platelet Volume 9.5 fl (8.7-11.0); Monocytes Absolute Auto 0.63 K/mm3 (0.10-0.90); Monocytes Percent Auto 14.3 % (2.0-11.0); Neutrophils Absolute Auto 2.56 K/mm3 (1.70-7.20); Neutrophils Percent Auto 58.3 % (50.0-70.0); Platelet Count Result 193 K/mm3 (150-420); Red Blood Count 4.71 M/mm3 (4.70-6.10); Red Cell Distribution Width 13.7 % (11.6-14.4); White Blood Count 4.4 K/mm3 (4.8-10.8)
[2024-02-05 14:42] LABS: Appearance Urine Clear (Clear); Bilirubin Urine Negative (Negative); Color Urine Light Yellow (Yellow); Glucose Urine UA 3+ (Negative); Ketones Urine Negative (Negative); Leukocyte Esterase Ur Negative (Negative); Nitrate Urine Negative (Negative); Protein Urine Negative (Negative); Urobilinogen Urine 0.2 mg/dL (0.2-1.0)
[2024-02-05 14:59] LABS: Lactic Acid Reflex 0.5 mmol/L (0.4-2.0)
[2024-02-05 15:02] LABS: Add Urine Microscopic? YES; Bacteria Urine Trace /hpf; Blood Urine Trace-Lysed (Negative); RBC Urine 0-2 /hpf (0-2); Squamous Epithelial Cell Urine Rare /hpf (Few); WBC Urine None seen /hpf (0-3)
[2024-02-05 15:14] LABS: Alanine Aminotransferase 16 U/L (16-63); Albumin Level 3.9 g/dL (3.4-5.0); Alkaline Phosphatase 72 U/L (46-116); Anion Gap 9 mmol/L (4-12); Aspartate Amino Transferase 15 U/L (15-37); Bilirubin,Total 0.5 mg/dL (0.00-1.00); Blood Urea Nitrogen 16 mg/dL (7-18); Carbon Dioxide 30 mmol/L (21-32); Chloride 97 mmol/L (98-108); Estimated Glomerular Filt Rate > 60; Glucose 100 mg/dL (70-99); Osmolality Calculated 283 mOsm/kg (285-295); Potassium 3.9 mmol/L (3.5-5.1); Sodium 136 mmol/L (136-145); Total Protein 7.1 g/dL (6.4-8.2)
== END 2024-02-05 14:22 | disposition home or self-care (01) ==
LOC: CHSLAB 14:26
PROVIDERS: PCP Internal Medicine; Visit Provider Internal Medicine
DX: R10.32 Left lower quadrant pain (principal)
CPT/HCPCS: 36415; 80053; 81001; 83605; 85025; 87086

== ENCOUNTER 2024-02-14 10:11 | Outpatient (CLI) | payer MEDICARE, SELFPAY ==
--- NOTE | ~2024-02-14 | CT_ITS ---
EXAMINATION: CT abdomen pelvis w con DATE: 02/14/2024 10:34 INDICATION: Left lower quadrant abdominal pain. Constipation. TECHNIQUE: Computed tomography (CT) of the abdomen and pelvis was performed with 100 mL Omnipaque 350 intravenous contrast. Automated exposure control and iterative reconstruction technique were employe d. The dose-length product was 1133.80 mGy-cm. COMPARISON: CT abdomen and pelvis 03/02/2022 FINDINGS: The visualized portions of the lung bases demonstrate mild atelectasis. There is mild scarr ing in paraspinal right lower lobe. There is mild atelectasis in the lower lobes. No pleural effusion . There is left atrial enlargement of the heart. There is a large distribution of old infarct in left ventricle of the heart. There are coronary artery calcifications. No pericardial effusion. There are pacer wires in right atrium, right ventricle, and coronary sinus. The liver is normal. There are domitila nges of cholecystectomy. Calcifications in the spleen are consistent with old granulomatous disease. The pancreas and adrenal glands are normal. There are cysts in the kidneys measuring up to 3.7 cm on the left. There is a right inguinal hernia containing fat. There is diverticulosis of the colon witho ut evidence of diverticulitis. The appendix is normal. There are no dilated loops of bowel. There is a small sliding hiatal hernia. There are no pathologically enlarged lymph nodes. There is no free int raperitoneal fluid. There is mild thoracic spondylosis and severe lumbar spondylosis. IMPRESSION: 1. No specific etiology for the patient's symptoms. Reviewed, dictated and finalized at location A.
== END 2024-02-14 10:12 | disposition home or self-care (01) ==
PROVIDERS: PCP Internal Medicine; Visit Provider Internal Medicine
DX: R10.32 Left lower quadrant pain (principal); K59.00 Constipation, unspecified
CPT/HCPCS: 74177; Q9967

== ENCOUNTER 2024-04-07 13:57 | Outpatient (CLI) | payer MEDICARE, SELFPAY ==
[2024-04-07 14:37] LABS: Basophils Percent Auto 0.7 % (0.2-1.2); Eosinophils Absolute Auto 0.1 K/mm3 (0-0.3); Hematocrit 40.1 % (42.0-52.0); Immature Granulocyte Absolute 0.01 K/mm3 (0.00-0.031); Immature Granulocyte Percent A 0.2 % (0-0.5); Lymphocytes Percent Auto 22.5 % (18.3-44.2); Mean Corpuscular HGB Conc 32.4 g/dl (32-36); Mean Corpuscular Hemoglobin 28.1 pg (26-34); Mean Corpuscular Volume 86.6 fl (80-100); Mean Platelet Volume 10.7 fl (7.4-10.4); Monocytes Absolute Auto 0.6 K/mm3 (0.1-0.6); Monocytes Percent Auto 13.3 % (2.6-8.5); Neutrophils Absolute Auto 2.7 K/mm3 (1.3-6.7); Neutrophils Percent Auto 61.3 % (45.5-73.1); Platelet Count Result 161 k/mm3 (150-375); Red Blood Count 4.63 M/mm3 (4.6-6.20); White Blood Count 4.5 K/mm3 (4.5-10.0)
[2024-04-07 14:39] LABS: Add Urine Microscopic? NO; Appearance Urine Clear (Clear); Bilirubin Urine Negative (Negative); Blood Urine Negative (Negative); Color Urine Yellow (Yellow); Glucose Urine UA Negative (Negative); Ketones Urine Negative (Negative); Leukocyte Esterase Ur Negative LEU/UL (Negative); Nitrate Urine Negative (Negative); Protein Urine Negative (Negative); Specific Grav Ur 1.009 (1.001-1.035); Urobilinogen Urine 0.2 mg/dL (<2.0)
[2024-04-07 14:40] LABS: Alanine Aminotransferase 13 U/L (6-50); Albumin Level 4.2 g/dL (3.5-5.1); Alkaline Phosphatase 53 U/L (38-126); Anion Gap 9 mmol/L (4-12); Aspartate Amino Transferase 24 U/L (17-59); Bilirubin,Total 0.6 mg/dL (0.2-1.3); Blood Urea Nitrogen 14 mg/dL (9-20); Calcium 8.9 mg/dL (8.4-10.2); Carbon Dioxide 27 mmol/L (22-30); Chloride 102 mmol/L (98-107); Estimated Glomerular Filt Rate > 60; Glucose 107 mg/dL (65-110); Potassium 3.8 mmol/L (3.4-5.0); Sodium 138 mmol/L (137-145)
[2024-04-07 15:10] LABS: Prostate Specific Antigen 0.7 ng/mL (< OR = 4.0)
== END 2024-04-07 13:58 | disposition home or self-care (01) ==
LOC: ANHLAB 14:03
PROVIDERS: PCP Internal Medicine; Visit Provider Internal Medicine
DX: N39.0 Urinary tract infection, site not specified (principal); Z12.5 Encounter for screening for malignant neoplasm of prostate
CPT/HCPCS: 36415; 80053; 81003; 84153; 85025; G0103

== ENCOUNTER 2024-04-23 07:15 | Outpatient (RCR) | payer MEDICARE, SELFPAY ==
[2024-01-22 08:45] VITALS: PULSE 70
== END 2024-04-23 07:59 | disposition home or self-care (01) ==
LOC: ANHCPREHAB 07:15
PROVIDERS: PCP Internal Medicine; Visit Provider Internal Medicine Cardiovascular Disease
DX: Z95.5 Presence of coronary angioplasty implant and graft (principal)
CPT/HCPCS: 93798

== ENCOUNTER 2024-11-25 12:39 | Outpatient (CLI) | payer MEDICARE, SELFPAY ==
[2024-11-25 13:45] LABS: Hematocrit 41.7 % (42.0-52.0); Hemoglobin 13.7 g/dL (14.0-18.0); Mean Corpuscular HGB Conc 32.9 g/dl (32-36); Mean Corpuscular Hemoglobin 28.9 pg (26-34); Mean Platelet Volume 9.9 fl (7.4-10.4); Platelet Count Result 157 k/mm3 (150-375); Red Blood Count 4.74 M/mm3 (4.6-6.20); Red Cell Distribution Width 14.1 % (11.5-14.5); White Blood Count 4.7 K/mm3 (4.5-10.0)
[2024-11-25 13:47] LABS: Add Urine Microscopic? NO; Appearance Urine Clear (Clear); Bilirubin Urine Negative (Negative); Blood Urine Negative (Negative); Color Urine Yellow (Yellow); Glucose Urine UA Negative (Negative); Ketones Urine Negative (Negative); Leukocyte Esterase Ur Negative LEU/UL (Negative); Nitrate Urine Negative (Negative); Protein Urine Negative (Negative); Specific Grav Ur 1.005 (1.001-1.035); Urobilinogen Urine 0.2 mg/dL (<2.0); pH Urine 5.5 (5.0-9.0)
[2024-11-25 14:00] LABS: Alanine Aminotransferase 16 U/L (6-50); Albumin Level 4.6 g/dL (3.5-5.1); Alkaline Phosphatase 50 U/L (38-126); Anion Gap 11 mmol/L (4-12); Aspartate Amino Transferase 34 U/L (17-59); Bilirubin,Total 0.8 mg/dL (0.2-1.3); Blood Urea Nitrogen 15 mg/dL (9-20); Calcium 9.3 mg/dL (8.4-10.2); Carbon Dioxide 26 mmol/L (22-30); Chloride 101 mmol/L (98-107); Cholesterol 154 mg/dL (0-200); Creatine Kinase 121 U/L (55-170); Estimated Glomerular Filt Rate > 60; Glucose 101 mg/dL (65-110); HDL Direct 66 mg/dL; Potassium 4.1 mmol/L (3.4-5.0); Sodium 138 mmol/L (137-145); Total Protein 8.1 g/dL (6.3-8.2); Triglycerides 66 mg/dL (<150)
[2024-11-25 14:28] LABS: Free T3 2.47 pg/mL (2.45-5.93); Free T4 Free Thyroxine 1.55 ng/dL (0.78-2.19)
[2024-11-25 14:56] LABS: LDL Cholesterol Direct 60 mg/dL
== END 2024-11-25 12:40 | disposition home or self-care (01) ==
LOC: ANHLAB 12:43
PROVIDERS: PCP Internal Medicine; Visit Provider Internal Medicine
DX: E78.2 Mixed hyperlipidemia (principal); I10 Essential (primary) hypertension; R73.01 Impaired fasting glucose; C67.9 Malignant neoplasm of bladder, unspecified; E05.41 Thyrotoxicosis factitia with thyrotoxic crisis or storm; I25.119 Atherosclerotic heart disease of native coronary artery with unspecified angina pectoris
CPT/HCPCS: 36415; 80053; 80061; 81003; 82550; 82607; 84439; 84443; 84481; 85027

== ENCOUNTER 2024-12-12 10:10 | Outpatient (CLI) | payer MEDICARE, SELFPAY ==
--- OUTSIDE RECORDS SUMMARY | 2024-12-12 10:16 | XMS_ITS | Clinical Summary ---
Author Organization [facility] Address [address] [place] [address] Care Team Providers Care Transit Mixer Driver Name Role Phone Abraham Leon MD Primary Care Provider + [phone] Allergies Active Allergy Reactions Criticality Noted Date Comments Simvastatin Other (See comments) Low 08/22/2017 Muscle aches and elevated liver enzymes Spironolactone Other (See comments) Low 03/17/2021 Breast enlargement, 2018 Sulfa (Sulfonamide Antibiotics) Rash Medium Medications folic acid (FOLVITE) 400 mcg tablet take 1 tablet by oral route every day 0 0 05/20/20 13 Active multivitamin tablet tablet take 1 tablet by oral route every day with food 0 08/03/19 13 Active Linzess 145 mcg capsule SPRINKLE ENTIRE CONTENTS OF 1 CAPSULE ON SMALL AMOUNT OF APPLESAUCE AND TAKE IMMEDIATELY BY MOUTH ONCE DAILY ON AN EMPTY STOMACH AT LEAST 30 12/24/19 20 Active levothyroxine (SYNTHROID) 75 mcg tablet Take 1 tablet (75 mcg total) by mouth websphere administrator before breakfast 09/08/19 21 Active furosemide (LASIX) 40 mg tabletIndicati ons: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 90 tablet 3 07/24/19 24 Active rosuvastatin (CRESTOR) 20 mg tabletIndicati ons:Coronary artery disease of [place] artery of [place] heart with stable angina pectoris TAKE 1 TABLET(20 MG) BY MOUTH DAILY 90 tablet 3 11/16/19 24 Active docusate sodium (COLACE) 100 mg capsuleIndicat ions:constipat ion Take 3 capsules (300 mg total) by mouth nightly Active apixaban (ELIQUIS) 5 mg tablet Take 1 tablet (5 mg total) by mouth 2 (two) times a day 60 tablet 11 01/09/20 24 Active sacubitriL-valentine sartan (ENTRESTO) 97-103 mg tabletIndicati ons:chronic heart failure Take 1 tablet by mouth 2 (two) times a day 60 tablet 3 05/23/20 24 Active gabapentin (NEURONTIN) 300 mg capsule Take 1 capsule (300 mg total) by mouth 05/05/20 24 Active amiodarone (PACERONE) 200 mg tablet Take 0.5 tablets (100 mg total) by mouth daily 15 tablet 3 09/02/19 25 Active eplerenone (INSPRA) 25 mg tablet TAKE 1 TABLET(25 MG) BY MOUTH DAILY 90 tablet 1 10/29/19 25 Active nitroglycerin (NITROSTAT) 0.4 mg SL tabletIndicati ons:Coronary artery disease of [place] artery of [place] heart with stable angina pectoris DISSOLVE 1 TABLET UNDER THE TONGUE NEEDED FOR CHEST PAIN EVERY 5 MINUTES CALL 911 IF THIRD DOSE IS NEEDED 25 tablet 11/01/[address] (PROTONIX) 40 mg EC tablet Take 1 tablet (40 mg total) by mouth daily 90 tablet 3 11/12/19 25 026 Active metoprolol XL (TOPROL-XL) 25 mg extended release tablet TAKE 2 TABLETS(50 MG) BY MOUTH DAILY 180 tablet 1 11/25/19 25 Active clopidogreL (PLAVIX) 75 mg tablet TAKE 1 TABLET(75 MG) BY MOUTH DAILY 90 tablet 2 12/02/19 25 Active metoprolol XL (TOPROL-XL) 25 mg extended release tablet TAKE 2 TABLETS(50 MG) BY MOUTH DAILY 60 tablet 3 07/21/19 25 025 Discontinued clopidogreL (PLAVIX) 75 mg tablet TAKE 1 TABLET(75 MG) BY MOUTH DAILY 30 tablet 11 08/19/19 25 025 Discontinued Active Problems Problem Noted Date Diagnosed Date Chest discomfort 07/24/2023 Chronic combined systolic an d diastolic CHF (congestive heart failure) 12/25/2022 Visit for wound check 05/25/2022 CHF (congestive heart failure), NYHA class III 1 07/18/2021 Elevated LFTs 03/16/2021 Hypotension due to drugs 09/12/2020 Medication monitoring encounter 09/03/2018 Cardiomyopathy, ischemic 01/09/2017 Assessment & Plan (01/09/2017 7:54 PM CDT): Long history of ischemic cardiomyopathy, EF 25-30% initially, Running 30-40% now. Patient on good medical therapy with losartan, metoprolol and furosemide. Blood pressure too low to increase doses. Could consider Entresto if further issues. PAF (paroxysmal atrial fibrillation) 01/09/2017 Assessment & Plan (01/09/2017 7:55 PM CDT): No clinical episodes since 23/05, on amiodarone therapy. Paroxysmal atrial flutter 01/09/2017 Essential hypertension 01/09/2017 Assessment & Plan (01/09/2017 7:56 PM CDT): At goal on medical therapy Biventricular ICD (implantab le cardioverter-defibrillator) in place 01/09/2017 Overview (05/19/2022): PlanHQ BIV ICD upgrade. Dx; ICM, CHF, PAF. DOI 05/17/2022-[place], chronic A & RV leads 2000. [facility]. Latitude remote monitoring. Assessment & Plan (01/09/2017 7:58 PM CDT): ICD was checked in June, normal function but is overdue for checkup. No defibrillations On amiodarone therapy 01/09/2017 Assessment & Plan (01/09/2017 8:00 PM CDT): Recent liver enzymes and thyroid were normal. Chest x-ray June 2016 showed no evidence of amiodarone toxicity Obesity (BMI 30.0-34.9) 01/09/2017 Coronary artery disease of n ative artery of [place] heart with stable angina pectoris 01/04/2017 Assessment & Plan (01/09/2017 7:55 PM CDT): Remote large anterior PA , status post PTCA of the LAD. Recent stress test showed a large infarction but no reversible ischemia The patient has been very stable but admits to exertional angina now, no change control analyst the last several months. Sounds like stable angina. Discussed whether or not to evaluate further with a stress test but since patient is stable we decided not to pursue it at this time. Obesity with body mass index 30 or greater 01/31 Overview (09/09/2016): Obesity (BMI 30-39.9) Chronic anticoagulation 05/18/2015 Overview (09/07/2016): Chronic anticoagulation Mixed hyperlipidemia 05/18/2015 Overview (09/07/2016): Mixed hyperlipidemia Assessment & Plan (01/09/2017 7:58 PM CDT): Unclear what statin the patient is taking-- could be atorvastatin 20 mg q.d. Or pravastatin 20 mg q.d. 01/01/2017 LDL 75 In any case I recommend atorvastatin 40 mg q.d. Per guideline directed therapy Thoracic root lesion 05/20/2013 Overview (09/07/2016): Thoracic radiculopathy Resolved Problems Problem Noted Date Diagnosed Date Resolved Date Encounter for pacemaker at e nd of battery life 04/07/2022 12/25/2022 Overview (04/07/2022): Added automatically from request for surgery [id number] Pacemaker lead malfunction 09/03/2018 0 09/03/2018 Malfunction of implantable d efibrillator ventricular (ICD) lead 09/03/2018 12/13/2019 Malfunction of implantable d efibrillator ventricular (ICD) lead 09/03/2018 07/24/2023 Chest pain 07/20/2016 01/09/2017 Overview (09/07/2016): Chest pain in adult Cardiomyopathy 02/01/2016 01/09/2017 Overview (09/07/2016): Cardiomyopathy Numbness of upper extremity 05/20/2013 01/09/2017 Overview (09/06/2016): Left arm numbness Pure hypercholesterolemia 02/19/2013 Overview (09/07/2016): PURE HYPERCHOLESTEROLEM Encounters Date Type Department Care Team Description 11/21/2024 11:30 AM CDT Office Visit [facility] [address] 6th [place] [address] [place] [phone] Yoselyn Miranda PA Chronic bilateral low back pain with right-sided sciatica (Primary Dx); Bilateral leg numbness 10/08/2024 8:30 AM CDT Ancillary Procedure [facility] [address] [place] [address] [place] [phone] Chronic combined systolic and diastolic CHF (congestive heart failure) (HCC) (Primary Dx); ICD (implantable cardioverter-defibr illator) in place; PAF (paroxysmal atrial fibrillation) (HCC); Cardiomyopathy, unspecified type (HCC); Biventricular ICD (implantable cardioverter-defibr illator) in place 09/18/2024 Documentation [facility] [address] [place] [address] [place] [phone] Desiree Guerrero MA 09/12/2024 Telephone [facility] [address] [place] [phone] Truman Green RN from Last 3 Months Surgical History Surgery Date Site/Laterality Comments CHOLECYSTECTOMY Cholecystectomy CARDIAC DEFIBRILLATOR PLACEMENT 2004 Implantable Defibrillator ANGIOPLASTY SKIN CANCER EXCISION Medical History Medical History Date Comments Hx Other Medical BPH Myocardial infarction (HCC) 1993 Myoc ardial infarction Hx Other Medical CAD Myocardial infarction (HCC) Myoc ardial infarction GERD (gastroesophageal reflux disease) Hypothyroidism Chronic idiopathic constipation Cataract Heart disease CHF (congestive heart failure) (HCC) Paroxysmal atrial flutter (HCC) Skin cancer Neuropathy Family History Medical History Relation Name Comments Heart attack Father Myocardial Infa rction; Stroke Father Stroke; Heart disease Father's Brother 1 Cancer Mother E Heart attack Mother E Myocardial infa rction; Stroke Mother E Stroke; Heart attack Other Family history of Myocardial infarction; Relation Name Status Comments Father Alive Father's Brother 1 Mother E Other Social History Tobacco Use Types Packs/Day Years Used Date Smoking Tobacco: Former Cigarettes Passive Smoke Exposure: Never Smokeless Tobacco: Never Tobacco Cessation:Counseling Given: Not Answered Comments:Smoked when teenager Alcohol Use Standard Drinks/Week Comments No 0 (1 standard drink = 0.6 oz pur e alcohol) AUDIT-C Answer Date Recorded Frequency of Alcohol Consumption Not on file 09/27/2023 Q2: How many drinks containi ng alcohol do you have on a typical day when you are drinking? Patient does not drink Frequency of Binge Drinking Not on file 09/03 Personal Safety Answer Date Recorded Have you ever been in or are you currently in a harmful physical or emotional relationship or is someone making you feel afraid or unsafe? 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 TEAM LEADER Gender Identity Not on file Sexual Orientation Not on file Obstetrics History Last Filed Vital Signs Vital Sign Reading Time Taken Comments Blood Pressure 104/66 11/21/2024 10:58 AM CDT Pulse 60 11/21/2024 10:58 AM CDT Temperature 36.4 C (97.6 F) 11/29/2023 8:51 AM CDT Respiratory Rate 18 02/05/2024 10:14 AM CDT Oxygen Saturation 97% 07/23/2024 10:05 AM BAKERY TEAM LEADER Inhaled Oxygen Concentration - - Weight 113.9 kg (251 lb) 11/21/2024 10:58 AM CDT Height 182.9 cm (6') 11/21/2024 10:58 AM CDT Body Mass Index 34.04 11/21/2024 10:58 AM CDT Plan of Treatment Health Maintenance Due Date Last Done Comments Depression Screening 1945 Hepatitis C Screening 1945 Hepatitis B Screening 1964 Zoster Vaccine (1 of 2) 1996 Well Visit 65+ 2011 Covid-19 Vaccine (2023-2 5 season) 2024 09/20/2021, 04/24/2021, 08/23/2020, Additional history exists Fall Risk Assessment 11/28/2024 11/29/2023, 10/09/2023, 10/03/2022, Additional history exists Influenza Vaccine (#1) 2025 , 02/04/2020, 02/02/2020, Additional history exists DTaP/Tdap/Td Vaccine (2 - Td or Tdap) 06/29/2030 06/29/2020 Pneumococcal vaccine 65+ Completed 02/17/2021, 10/04 Medical Devices Implanted Type Area Tipple Repairer Device Identifier Shelf Expiration Date Model / Serial / Lot Icd-05/12/2010 Implanted: 010 by Dana Charles (Quantity not on file) ICD Chest [employer] ICM, PAF TELIGEN E110 / [id number] / Description:Chronic leads fr om 2000. [employer] C.R.M. Momentum X4 Heartlogic Enduralife Smartcrt 5.37x8.08cm Is-1 Df-1 G138 - [id number] - [id number] Implanted:Qty: 1 on 05/17/2022 by Rene Macedo MD at [facility] ICD [employer] C.R.M. [id number] 12/24/2023 G138 / [id number] / Lead Pacing Acuity X4 Irox Mp35n Titanium Dexamethasone Acetate 4 Cm Space L95 Cm Od3.9-5.2 Fr Odsec2.6 Fr Left Ventricular Otw Quadripolar Long Straight Taper Tip Accept .081 In Guide Catheter Is4-Ll Implanted:Qty: 1 on 05/17/2022 by Rene Macedo MD at [facility] Lead [employer] Maverick [id number] 12/22/2023 4672 / [id number] / Medtronic Card Vasc Surgery 2.50 X 12mm [place] Rx Coronary Stent [id number] - [id number] Implanted:Qty: 1 on 11/29/2023 by Edinson Aguila MD at [facility] Medtronic Card Vasc Surgery 10/03/2026 [id number] / / [id number] Medtronic Card Vasc Surgery 2.50 X 12mm [place] Rx Coronary Stent [id number] - [id number] Implanted:Qty: 1 on 11/29/2023 by Edinson Aguila MD at [facility] Vas Surgery 05/23/2026 [id number] / / [id number] [facility] Surgery 3.0 X 18mm [place] Rx Coronary Stent [id number] - [id number] Implanted:Qty: 1 on 11/29/2023 by Edinson Aguila MD at [facility] Vas Surgery 08/26/2026 [id number] / / [id number] [facility] Device Vascular Closure Femoral Artery Bioabsorbable Dual Method Vascade 6-7fr Collagen [id number] - [id number] Implanted:Qty: 1 on 11/29/2023 by Edinson Aguila MD at [facility] [id number] [facility] 07/05/2025 [id number] / / [id number] Procedures Procedure Name Priority Date/Time Associated Diagnosis Comments DEVICE CHECK - IN OFFICE Routine 10/08/2024 8:13 AM CDT ICD (implantable cardioverter-defibri llator) in place PAF (paroxysmal atrial fibrillation) (HCC) Cardiomyopathy, unspecified type (HCC) from Last 3 Months Results * DEVICE CHECK - IN OFFICE (10/08/2024 8:13 AM CDT) Anatomical Region Laterality Modality Other Narrative 10/08/2024 3:23 PM CDT Synchrone[employer] Momentum BIV ICD upgrade. Dx; ICM, CHF, PAF. DOI 05/17/2022-[place], chronic A & RV leads 2000. [facility]. Latitude remote monitoring. Supervising MD: Dr Aguila. Left pectoral incision well healed without redness, drainage, or edema noted. Weight 248.6 lbs. HR 60 bpm. Interrogation of DDD Biventricular ICD demonstrated appropriate device function. Battery function-Ok, 6.5 years remaining battery longevity to MELODY. Charge time--10.6 seconds. Appropriate lead measurements noted. Presenting rhythm-AP BIV Paced. Underlying rhythm-CHB without v-escape @ DDI 30 bpm. AP-29%, BIV Paced-99%. 43 Atrial high rate episodes noted. AF burden 34%. No Ventricular tachy arrhythmias recorded. Medications; Eliquis, Plavix, Lopressor, Entresto. No programming changes made to device settings. Office device f/u 01/13/2026. Latitude remote f/u 01/07/2025. Radha Perez RN Tri Nuñez MD [facility] PROCEDU RES Final Result from Last 3 Mon[place] [address] [facility] MEDICARE SUPPLEMENT MEDICARE [facility] MEDICARE SUPPLEMENT Advance Directives For more information, please contact: [phone] * Full Code (Latest Code Status on File) Date Activated Date Inactivated Comments 05/17/2022 4:43 PM 05/18/2022 4:43 PM Care Teams Transit Mixer Driver Relationship Specialty Start Date End Date Abraham Leon MD [address] [place] [address] PCP - General 09/01/16
--- OUTSIDE RECORDS SUMMARY | 2024-12-12 10:17 | XMS_ITS | Encounter Summary ---
Author Organization [facility] Address [address] [facility] [address] [place] [address] Care Team Providers Care Dress Cap Maker Name Role Phone Abraham Leon MD Primary Care Provider [phone] Abraham Leon MD Primary Care Provider + [phone] Encounter Details Date Type Department Care Team (Late st Contact Info) Description 06/15/2016 Orders Only [facility] ProviderCaitlin MD [address] [place] [address] Social History Tobacco Use Types Packs/Day Years Used Date Smoking Tobacco: Never Alcohol Use Standard Drinks/Week Comments No 0 (1 standard drink = 0.6 oz pur e alcohol) Sex and Gender Information Value Date Recorded Sex Assigned at Not on file Legal Sex Male 1:30 PM CORK MIXER Gender Identity Not on file Sexual Orientation Not on file documented as of this encounter Plan of Treatment Not on file documented as of this encounter Procedures Procedure Name Priority Date/Time Associated Diagnosis Comments CARDIOLOGY REPORT 06/15/2016 documented in this encounter Results * CARDIOLOGY REPORT (06/15/2016) Anatomical Region Laterality Modality Other Narrative 06/15/2016 Ordered by an unspecified provider. Historical Provider [facility] LIANNA WOODY Final Result documented in this encounter Visit Diagnoses Not on filedocumented in this encounter Additional Health Concerns Infection Onset Date Last Indicated Resolved Time COVID: Suspected 09/05/2023 09/05/202309/0409/05/2023 3:30 PM CDT COVID: Suspected 09/09/2023 09/09/2023 09/09/2023 7:17 PM CDT COVID: Suspected 09/09/2023 09/09/2023 09/09/2023 10:17 PM CDT documented as of this encounter Care Teams Dress Cap Maker Relationship Specialty Start Date End Date Abraham Leon MD [address] [place] [address] PCP - General 09/01/16 Abraham Leon MD [address] [place] [address] PCP - General 05/20/13 08/31/16 documented as of this encounter
--- OUTSIDE RECORDS SUMMARY | 2024-12-12 10:17 | XMS_ITS | Encounter Summary ---
Author Organization [facility] Address [address] [facility] [address] [place] [address] Care Team Providers Care Washer And Crusher Tender Name Role Phone Abraham Leon MD Primary Care Provider [phone] Abraham Leon MD Primary Care Provider + [phone] Encounter Details Date Type Department Care Team (Late st Contact Info) Description 06/07/2016 Orders Only [facility] ProviderCaitlin MD [address] [place] [address] Social History Tobacco Use Types Packs/Day Years Used Date Smoking Tobacco: Never Alcohol Use Standard Drinks/Week Comments No 0 (1 standard drink = 0.6 oz pur e alcohol) Sex and Gender Information Value Date Recorded Sex Assigned at Not on file Legal Sex Male 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 Historical Provider [...] documented as of this encounter Care Teams Washer And Crusher Tender Relationship Specialty Start Date End Date Abraham Leon MD [address] [place] [address] PCP - General 09/01/16 Abraham Leon MD [address] [place] [address] PCP - General 05/20/13 08/31/16 documented as of this encounter
--- OUTSIDE RECORDS SUMMARY | 2024-12-12 10:17 | XMS_ITS | Encounter Summary ---
Author Organization [facility] Address [address] [facility] [address] [place] [address] Care Team Providers Care Preparation Operator Name Role Phone Abraham Leon MD Primary Care Provider [phone] Abraham Leon MD Primary Care Provider + [phone] Encounter Details Date Type Department Care Team (Late st Contact Info) Description 06/22/2016 Orders Only [facility] ProviderCaitlin MD [address] [place] [address] Social History Tobacco Use Types Packs/Day Years Used Date Smoking Tobacco: Never Alcohol Use Standard Drinks/Week Comments No 0 (1 standard drink = 0.6 oz pur e alcohol) Sex and Gender Information Value Date Recorded Sex Assigned at Not on file Legal Sex Male 1:30 PM AUDIO PRODUCTION ENGINEER Gender Identity Not on file Sexual Orientation Not on file documented as of this encounter Plan of Treatment Not on file documented as of this encounter Procedures Procedure Name Priority Date/Time Associated Diagnosis Comments CARDIOLOGY REPORT 06/22/2016 documented in this encounter Results * CARDIOLOGY REPORT (06/22/2016) Anatomical Region Laterality Modality Other Narrative 06/22/2016 Ordered by an unspecified provider. Historical Provider [...] documented as of this encounter Care Teams Preparation Operator Relationship Specialty Start Date End Date Abraham Leon MD [address] [place] [address] PCP - General 09/01/16 Abraham Leon MD [address] [place] [address] PCP - General 05/20/13 08/31/16 documented as of this encounter
--- OUTSIDE RECORDS SUMMARY | 2024-12-12 10:17 | XMS_ITS | Referral Summary ---
Author Organization [facility] Address [address] [place] [address] Care Team Providers Care Molder Helper Name Role Phone Abraham Leon MD Primary Care Provider Encounters Date Type Department Care Team Description 11/21/2024 11:30 AM CDT Office Visit [facility] [address] [facility] Medicine 6th [place] [address] [place] [address] Yoselyn Miranda PA Chronic bilateral low back pain with right-sided sciatica (Primary Dx); Bilateral leg numbness 10/08/2024 8:30 AM CDT Ancillary Procedure [facility] Cardiology [address] [facility] [address] [place] [address] Chronic combined systolic and diastolic CHF (congestive heart failure) (HCC) (Primary Dx); ICD (implantable cardioverter-defibr illator) in place; PAF (paroxysmal atrial fibrillation) (HCC); Cardiomyopathy, unspecified type (HCC); Biventricular ICD (implantable cardioverter-defibr illator) in place 09/18/2024 Documentation [facility] Medical [facility] Cardiology [address] [place] [address] Desiree Guerrero MA 09/12/2024 Telephone [facility] [address] [facility] Medicine 6th [place] [address] [place] [address] Truman Green RN from Last 3 Months Allergies Active Allergy Reactions Criticality Noted Date [...] 1 tablet (75 mcg total) by mouth speech and language tutor before breakfast 09/08/19 21 Active furosemide (LASIX) 40 mg tabletIndicati ons: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 90 tablet 3 07/24/19 24 Active rosuvastatin (CRESTOR) 20 mg tabletIndicati ons:Coronary artery disease of [place] artery of [place] heart with stable angina pectoris TAKE 1 [...] mg SL tabletIndicati ons:Coronary artery disease of [place] artery of [place] heart with stable angina pectoris DISSOLVE 1 [...] le cardioverter-defibrillator) in place 01/09/2017 Overview (05/19/2022): [employer] Momentum BIV ICD upgrade. Dx; ICM, CHF, PAF. DOI 05/17/2022-[place], chronic A & RV leads 2000. [facility]. Latitude remote monitoring. Assessment & Plan (01/09/2017 [...] artery disease of n ative artery of [place] heart with stable angina pectoris 01/04/2017 Assessment & Plan (01/09/2017 7:55 PM CDT): Remote large anterior DC , status post PTCA of the LAD. Recent stress test showed a large infarction but no reversible ischemia The patient has been very stable but admits to exertional angina now, no exchange underwriting consultant the last several months. Sounds like stable [...] (04/07/2022): Added automatically from request for surgery [id number] Pacemaker lead malfunction 09/03/2018 0 09/03/2018 Malfunction of implantable d efibrillator ventricular (ICD) lead 09/03/2018 12/13/2019 Malfunction of implantable d efibrillator ventricular (ICD) lead 09/03/2018 07/24/2023 Chest pain 07/20/2016 01/09/2017 Overview (09/07/2016): Chest pain in adult Cardiomyopathy 02/01/2016 01/09/2017 Overview (09/07/2016): Cardiomyopathy Numbness of upper extremity 05/20/2013 01/09/2017 Overview (09/06/2016): Left arm numbness Pure hypercholesterolemia 02/19/2013 Overview (09/07/2016): PURE HYPERCHOLESTEROLEM Social History Tobacco Use Types Packs/Day Years [...] on file Legal Sex Male 1:30 PM CLIENT 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 Gender Identity Not on file Sexual Orientation Not on file Last Filed Vital Signs Vital Sign Reading Time Taken Comments Blood Pressure 104/66 11/21/2024 10:58 AM CDT Pulse 60 11/21/2024 10:58 AM CDT Temperature 36.4 C (97.6 F) 11/29/2023 8:51 AM CDT Respiratory Rate 18 02/05/2024 10:14 AM CDT Oxygen Saturation 97% 07/23/2024 10:05 AM CLIENT RELATIONS SPECIALIST Inhaled Oxygen Concentration - - Weight 113.9 kg (251 lb) 11/21/2024 10:58 AM CDT Height 182.9 cm (6') 11/21/2024 10:58 AM CDT Body Mass Index 34.04 11/21/2024 10:58 AM CDT Plan of Treatment Not on file Medical Devices Implanted Type Area Senior Hr Generalist Device Identifier Shelf Expiration Date Model / Serial / Lot Icd-05/12/2010 Implanted: 010 by Dana Charles (Quantity not on file) ICD Chest [employer] ICM, PAF TELIGEN E110 / [id number] / Description:Chronic leads fr om 2000. [employer] C.R.M. Momentum X4 Heartlogic Enduralife Smartcrt 5.37x8.08cm Is-1 Df-1 G138 - [id number] - [id number] Implanted:Qty: 1 on 05/17/2022 by Rene Macedo MD at [facility] ICD [employer] C.R.M. [id number] 12/24/2023 G138 / [id number] / Lead Pacing Acuity X4 Irox Mp35n Titanium Dexamethasone Acetate 4 Cm Space L95 Cm Od3.9-5.2 Fr Odsec2.6 Fr Left Ventricular Otw Quadripolar Long Straight Taper Tip Accept .081 In Guide Catheter Is4-Ll Implanted:Qty: 1 on 05/17/2022 by Rene Macedo MD at [facility] Lead [employer] Maverick [id number] 12/22/2023 [id number] / [id number] / Medtronic Card Vasc Surgery 2.50 X 12mm [place] Rx Coronary Stent [id number] - [id number] Implanted:Qty: 1 on 11/29/2023 by Edinson Aguila MD at [facility] Medtronic Card Vasc Surgery 10/03/2026 [id number] / / [id number] 2000 Medtronic [facility] Vasc Surgery 2.50 X 12mm [place] Rx Coronary Stent [id number] - [id number] Implanted:Qty: 1 on 11/29/2023 by Edinson Aguila MD at [facility] Medtronic [facility] Vasc Surgery 05/23/2026 [id number] / / [id number] Medtronic [facility] Vas Surgery 3.0 X 18mm Toby [place] Rx Coronary Stent [id number] - [id number] Implanted:Qty: 1 on 11/29/2023 by [facility] at [facility] Vasc Surgery 08/26/2026 [id number] / / [id number] 2000 [email or web address] Medical [facility] Device Vascular Closure Femoral Artery Bioabsorbable Dual Method Vascade 6-7fr Collagen [id number] - [id number] Implanted:Qty: 1 on 11/29/2023 by Edinson Aguila MD at [facility] [email or web address] 07/05/2025 [id number] / / [id number] Procedures Procedure Name Priority Date/Time Associated Diagnosis Comments DEVICE CHECK - IN OFFICE Routine 10/08/2024 8:13 AM CDT ICD (implantable cardioverter-defibri llator) in place PAF (paroxysmal atrial fibrillation) (HCC) Cardiomyopathy, unspecified type (HCC) from Last 3 Months Results * DEVICE CHECK - IN OFFICE (10/08/2024 8:13 AM CDT) Anatomical Region Laterality Modality Other Narrative 10/08/2024 3:23 PM CDT [employer] Momentum BIV ICD upgrade. Dx; ICM, CHF, PAF. DOI 05/17/2022-[place]ahanda, chronic A & RV leads 2000. [facility]. Latitude remote monitoring. Supervising MD: Dr Aguila. [...] remote f/u 01/07/2025. Radha Perez RN Tri Nuñze MD CV CARDIAC SERVICES PROCEDU RES Final Result from Last 3 Months Insurance MEDICARE [facility] MEDICARE SUPPLEMENT MEDICARE [facility] MEDICARE SUPPLEMENT Advance Directives For more information, please contact: [phone] * Full Code (Latest Code Status on File) Date Activated Date Inactivated Comments 05/17/2022 4:43 PM 05/18/2022 4:43 PM Care Teams Molder Helper Relationship Specialty Start Date End Date Abraham Leon MD [address] [place] [address] [facility] - General 09/01/16
--- NOTE | 2024-12-12 14:52 | P.PCNPFT_ITS ---
PFT Procedure Performed PFT Procedure Performed Plethysmography (Lung Vol) Diffusing Cap (DLCO) Flow Vol Loop Spirometry w/o Bronchodil PFT Interpretation This is a pulmonary function test with spirometry, plethysmography and diffusing capacity. The test was performed and results interpreted in accordance with the 2019 and 2005 ATS/ERS Task Force guidelines respectively using the Global Lung Function Initiative-2012 reference equations. Patient demonstrated good effort and cooperation. Reproducibility criteria were met. The quality of the spirometry maneuver was Grade A. Findings: Spirometry: The contour the inspiratory and expiratory flow tracing are normal. The pre bronchodilator FVC is 4.52 L, 106% predicted. The pre bronchodilator FEV1 is 3.46 L, 110% predicted. The pre bronchodilator FEV1: FVC ratio 77%. Plethysmography: The total lung capacity is 6.83 L, 91% predicted. The func tional residual capacity is 3.17 L, 78% predicted. The residual volume is 2.21 L, 81% predicted. Diffusing capacity: The diffusing capacity unadjusted for hemoglobin and carboxyhemoglobin is 18.2, 72% predicted. The diffusing capacity adjusted for alveolar volume is 2.74, 77% predicted. In comparison to previous pulmonary function testing on 04/03/2018 the FVC is unchanged from 4.96 to 4.52. The FEV1 is unchanged from 3.63 L to 3.46 L. The total lung capacity is unchanged from 7.48 L to 6.83 L. The functional residual capacity is decreased from 3.77 L to 3.17 L. The residual volume is unchanged from 2.51 L to 2.21 L. The diffusing capacity unadjusted for hemoglobin and carboxyhemoglobin is decreased from 22.2 to 18.2. The diffusing capacity adjusted for alveolar volume is decreased from 3.35 to 2.74 Impression: The spirometry is normal without evidence of an obstructive abnormality. The lung volumes are normal. The diffusing capacity is normal. In comparison to previous pulmonary function testing on 04/03/2018 there has been a greater than anticipated time dependent decrease in the functional residual capacity and diffusing capacity. There has been no significant change in the FVC, FEV1, total lung capacity, and residual volume. Clinical correlation is recommended.
== END 2024-12-12 10:11 | disposition home or self-care (01) ==
PROVIDERS: PCP Internal Medicine; Visit Provider Internal Medicine
DX: Z51.81 Encounter for therapeutic drug level monitoring (principal); Z79.899 Other long term (current) drug therapy
CPT/HCPCS: 94375; 94726; 94729

== ENCOUNTER 2024-12-16 15:24 | Outpatient (CLI) | payer MEDICARE, SELFPAY ==
--- NOTE | ~2024-12-16 | XR_ITS ---
XR chest 2V 12/16/2024 15:45 Indication: Chronic drug therapy Procedure: 2 view chest Comparison: Comparison to multiple prior studies sequentially, with oldest reviewed study dated 07/31. Findings: Heart size normal. No focal air space disease, pulmonary edema, pleural effusion or suspect ed pneumothorax. Pacemaker leads are stable. There is atherosclerosis and ectasia of the aorta. There are cholecystectomy clips. There is diffuse idiopathic skeletal hyperostosis (DISH) of the thoracic spine. Impression: 1: No acute cardiopulmonary disease. Reviewed, dictated and finalized at location B. Impression: 1: No acute cardiopulmonary disease.
--- OUTSIDE RECORDS SUMMARY | 2024-12-16 15:32 | XMS_ITS | Encounter Summary ---
Author Organization [facility] Address [address] [place] [address] Care Team Providers Care Senior Storage Administrator Name Role Phone Abraham Leon MD Primary Care Provider [phone] Encounter Details Date Type Department Care Team (Late st Contact Info) Description 12/16/2024 Orders Only [facility] Health Information Management [address] [place] [address] Scanning, Provider Social History Tobacco Use Types Packs/Day Years Used Date Smoking Tobacco: Former Cigarettes Passive Smoke Exposure: Never Smokeless Tobacco: Never Comments:Smoked when teenage r Alcohol Use Standard Drinks/Week Comments No 0 [...] on file 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 Gender Identity Not on file Sexual Orientation Not on file documented as of this encounter Plan of Treatment Not on file documented as of this encounter Procedures Procedure Name Priority Date/Time Associated Diagnosis Comments SCAN - OTHER ORDERS 12/16/2024 documented in this encounter Results * SCAN - OTHER ORDERS (12/16/2024) us Provider Scanning Final Result documented in this encounter Visit Diagnoses Not on filedocumented in this encounter Care Teams Senior Storage Administrator Relationship Specialty Start Date End Date Abraham Leon MD [address] [place] [address] PCP - General 09/01/16 documented as of this encounter
--- OUTSIDE RECORDS SUMMARY | 2024-12-16 15:32 | XMS_ITS | Encounter Summary ---
Author Organization [facility] Address [address] [facility] [address] [place] [address] Care Team Providers Care Muck Miner Name Role Phone Abraham Leon MD Primary Care Provider [phone] Abraham Leon MD Primary Care Provider + [phone] Encounter Details Date Type Department Care Team (Late st Contact Info) Description 06/15/2016 Orders Only [facility] ProviderCaitlin MD [address] [place] [address] Social History Tobacco Use Types Packs/Day Years Used Date Smoking Tobacco: Never Alcohol Use Standard Drinks/Week Comments No 0 (1 standard drink = 0.6 oz pur e alcohol) Sex and Gender Information Value Date Recorded Sex Assigned at Not on file Legal 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
--- OUTSIDE RECORDS SUMMARY | 2024-12-16 15:32 | XMS_ITS | Encounter Summary ---
Author Organization [facility] Medical Group Address [address] [facility] [address] [place] [address] Care Team Providers Care Electronic System Engineer Name Role Phone Abraham Leon MD Primary Care Provider [phone] Abraham Leon MD Primary Care Provider + [phone] Encounter Details Date Type Department Care Team (Late st Contact Info) Description 06/22/2016 Orders Only [facility] ProviderCaitlin MD [address] [place] [address] Social History Tobacco Use Types Packs/Day Years Used Date Smoking Tobacco: Never Alcohol Use Standard Drinks/Week Comments No 0 (1 standard drink = 0.6 oz pur e alcohol) Sex and Gender Information Value Date Recorded Sex Assigned at Not on file Legal Sex Male 1:30 PM INSPECTOR POISING Gender Identity Not on file Sexual Orientation [...] documented as of this encounter Care Teams Electronic System Engineer Relationship Specialty Start Date End Date Abraham Leon MD [address] [place] [address] PCP - General 09/01/16 Abraham Leon MD [address] [place] [address] PCP - General 05/20/13 08/31/16 documented as of this encounter
--- OUTSIDE RECORDS SUMMARY | 2024-12-16 15:32 | XMS_ITS | Clinical Summary ---
Author Organization [facility] Address [address] [place] [address] Care Team Providers Care Assistant Commissioner Name Role Phone Abraham Leon MD Primary Care Provider [phone] Allergies Active Allergy Reactions Criticality Noted Date [...] 1 tablet (75 mcg total) by mouth manufacturing intern before breakfast 09/08/19 21 Active furosemide (LASIX) 40 mg tabletIndicati ons: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 90 tablet 3 07/24/19 24 Active rosuvastatin (CRESTOR) 20 mg tabletIndicati ons:Coronary artery disease of [place] artery of [place] heart with stable angina pectoris TAKE 1 [...] mg SL tabletIndicati ons:Coronary artery disease of [place] artery of [place] heart with stable angina pectoris DISSOLVE 1 [...] le cardioverter-defibrillator) in place 01/09/2017 Overview (05/19/2022): 265 Network BIV ICD upgrade. Dx; ICM, CHF, PAF. DOI 05/17/2022-Kahanda, chronic A & RV leads 2000. [facility]. Latitude remote monitoring. Assessment & Plan (01/09/2017 [...] artery disease of n ative artery of [place] heart with stable angina pectoris 01/04/2017 Assessment & Plan (01/09/2017 7:55 PM CDT): Remote large anterior ID , status post PTCA of the LAD. Recent stress test showed a large infarction but no reversible ischemia The patient has been very stable but admits to exertional angina now, no private branch exchange service adviser the last several months. Sounds like stable [...] (04/07/2022): Added automatically from request for surgery [id number] Pacemaker lead malfunction 09/03/2018 0 09/03/2018 Malfunction [...] Encounters Date Type Department Care Team Description 12/16/2024 Orders Only [facility] Health Information Management [address] [facility] [place] [address] Scanning, Provider 11/21/2024 11:30 AM CDT Office Visit [facility]cle [address] [facility] 6th [place] [address] [place] [address] Yoselyn Miranda PA Chronic bilateral low back pain with right-sided sciatica (Primary Dx); Bilateral leg numbness 10/08/2024 8:30 AM CDT Ancillary Procedure [facility] Cardiology [address] [place] [address] Chronic combined systolic and diastolic CHF (congestive heart failure) (HCC) (Primary Dx); ICD (implantable cardioverter-defib rillator) in place; PAF (paroxysmal atrial fibrillation) (HCC); Cardiomyopathy, unspecified type (HCC); Biventricular ICD (implantable cardioverter-defib rillator) in place 09/18/2024 Documentation [facility] Cardiology [address] [place] [address] Desiree Guerrero MA from Last 3 Months Surgical History Surgery [...] on file 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 Gender Identity Not on file Sexual Orientation Not on file Obstetrics History Last Filed Vital Signs Vital Sign Reading Time Taken Comments Blood Pressure 104/66 11/21/2024 10:58 AM CDT Pulse 60 11/21/2024 10:58 AM CDT Temperature 36.4 C (97.6 F) 11/29/2023 8:51 AM CDT Respiratory Rate 18 02/05/2024 10:14 AM CDT Oxygen Saturation 97% 07/23/2024 10:05 AM PIPE BUFFER Inhaled Oxygen Concentration - - Weight 113.9 [...] 02/17/2021, 10/04 Medical Devices Implanted Type Area Senior Devops Engineer Device Identifier Shelf Expiration Date Model / Serial / Lot Icd-05/12/2010 Implanted: 010 by Dana Charles (Quantity not on file) ICD Chest [employer] ICM, PAF TELIGEN E110 / [id number] / Description:Chronic leads fr om 2000. [employer] C[employer]M. Momentum X4 Heartlogic Enduralife Smartcrt 5.37x8.08cm Is-1 Df-1 G138 - [id number] - [id number] Implanted:Qty: 1 on 05/17/2022 by Rene Macedo MD at [facility] ICD [employer] C.R.M. [id number] 12/24/2023 G138 / [id number] / Lead Pacing Acuity X4 Irox Mp35n Titanium Dexamethasone Acetate 4 Cm Space L95 Cm Od3.9-5.2 Fr Odsec2.6 Fr Left Ventricular Otw Quadripolar Long Straight Taper Tip Accept .081 In Guide Catheter Is4-Ll Implanted:Qty: 1 on 05/17/2022 by Rene Macedo MD at [facility] Lead [employer] Maverick [id number] 12/22/2023 [id number] / [id number] / Medtronic Card Vasc Surgery 2.50 X 12mm Toby [place] Rx Coronary Stent [id number] - [id number] Implanted:Qty: 1 on 11/29/2023 by Edinson Aguila MD at [facility] Medtronic Card Vasc Surgery 10/03/2026 [id number] / / [id number] 2000 Medtronic Card Vasc Surgery 2.50 X 12mm Toby [place] Rx Coronary Stent [id number] - [id number] Implanted:Qty: 1 on 11/29/2023 by Edinson Aguila MD at [facility] Vas Surgery 05/23/2026 [id number] / / [id number] [facility] Surgery 3.0 X 18mm [place] Rx Coronary Stent [id number] - [id number] Implanted:Qty: 1 on 11/29/2023 by Edinson Aguila MD at [facility] Vas Surgery 08/26/2026 [id number] / / [id number] 2000 [employer] [facility] Device Vascular Closure Femoral Artery Bioabsorbable Dual Method Vascade 6-7fr Collagen [id number] - [id number] Implanted:Qty: 1 on 11/29/2023 by Edinson Aguila MD at [facility] [employer] [facility] 07/05/2025 [id number] / / [id number] Procedures Procedure Name Priority Date/Time Associated Diagnosis Comments SCAN - OTHER ORDERS 12/16/2024 DEVICE CHECK - IN OFFICE Routine 10/08/2024 8:13 AM CDT ICD (implantable cardioverter-defibri llator) in place PAF (paroxysmal atrial fibrillation) (HCC) Cardiomyopathy, unspecified type (HCC) from Last 3 Months Results * SCAN - OTHER ORDERS (12/16/2024) Provider Scanning Final Result * DEVICE CHECK - IN OFFICE (10/08/2024 8:13 AM CDT) Anatomical Region Laterality Modality Other Narrative 10/08/2024 3:23 PM CDT [email or web address] Momentum BIV ICD upgrade. Dx; ICM, CHF, PAF. DOI 05/17/2022-vikas Macedo A & RV leads 2000. CARD-[facility]. Latitude remote monitoring. Supervising MD: Dr Aguila. [...] Result from Last 3 Months Insurance MEDICARE [facility] MEDICARE SUPPLEMENT MEDICARE [employer] MEDICARE SUPPLEMENT Advance Directives For more information, please contact: [phone] * Full Code (Latest Code Status on File) Date Activated Date Inactivated Comments 05/17/2022 4:43 PM 05/18/2022 4:43 PM Care Teams Assistant Commissioner Relationship Specialty Start Date End Date Abraham Leon MD [address] [place] [address] PCP - General 09/01/16
--- OUTSIDE RECORDS SUMMARY | 2024-12-16 15:32 | XMS_ITS | Encounter Summary ---
Author Organization [facility] Medical Group Address [address] [facility] [address] [place] [address] Care Team Providers Care Machinist General Name Role Phone Abraham Leon MD Primary Care Provider [phone] Abraham Leon MD Primary Care Provider + [phone] Encounter Details Date Type Department Care Team (Late st Contact Info) Description 06/07/2016 Orders Only [facility] ProviderCaitlin MD [address] [place] [address] Social History Tobacco Use Types Packs/Day Years Used Date Smoking Tobacco: Never Alcohol Use Standard Drinks/Week Comments No 0 (1 standard drink = 0.6 oz pur e alcohol) Sex and Gender Information Value Date Recorded Sex Assigned at Not on file Legal 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
--- OUTSIDE RECORDS SUMMARY | 2024-12-16 15:32 | XMS_ITS | Referral Summary ---
Author Organization [facility] Address [address] [place] [address] Care Team Providers Care Tour Narrator Name Role Phone Abraham Leon MD Primary Care Provider Encounters Date Type Department Care Team Description 12/16/2024 Orders Only [facility] Health Information Management [address] [facility] [place] [address] Scanning, Provider 11/21/2024 11:30 AM CDT Office Visit [facility] Neuro Muscle [address] [facility] 6th [place] [address] [place] [address] Yoselyn Miranda PA Chronic bilateral low back pain with right-sided sciatica (Primary Dx); Bilateral leg numbness 10/08/2024 8:30 AM CDT Ancillary Procedure [facility] Cardiology [address] [facility] [address] [place] [address] Chronic combined systolic and diastolic CHF (congestive heart failure) (HCC) (Primary Dx); ICD (implantable cardioverter-defib rillator) in place; PAF (paroxysmal atrial fibrillation) (HCC); Cardiomyopathy, unspecified type (HCC); Biventricular ICD (implantable cardioverter-defib rillator) in place 09/18/2024 Documentation [facility] Cardiology [address] [place] [address] Desiree Guerrero MA from Last 3 Months Allergies Active Allergy [...] 1 tablet (75 mcg total) by mouth utility appraiser before breakfast 09/08/19 21 Active furosemide (LASIX) 40 mg tabletIndicati ons: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 90 tablet 3 07/24/19 24 Active rosuvastatin (CRESTOR) 20 mg tabletIndicati ons:Coronary artery disease of [place] artery of [place] heart with stable angina pectoris TAKE 1 [...] MG) BY MOUTH DAILY 90 tablet 1 05/27/20 25 Active nitroglycerin (NITROSTAT) 0.4 mg SL tabletIndicati ons:Coronary artery disease of [place] artery of [place] heart with stable angina pectoris DISSOLVE 1 [...] le cardioverter-defibrillator) in place 01/09/2017 Overview (05/19/2022): Saiguo Momentum BIV ICD upgrade. Dx; ICM, CHF, PAF. DOI 05/17/2022-[place], chronic A & RV leads 2000. [facility]. Latitude remote monitoring. Assessment & Plan [...] artery disease of n ative artery of karl[place] heart with stable angina pectoris 01/04/2017 Assessment & Plan (01/09/2017 7:55 PM CDT): Remote large anterior ME , status post PTCA of the LAD. 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 Gender Identity Not on file Sexual Orientation Not on file Last Filed Vital Signs Vital Sign Reading Time Taken Comments Blood Pressure 104/66 11/21/2024 10:58 AM CDT Pulse 60 11/21/2024 10:58 AM CDT Temperature 36.4 C (97.6 F) 11/29/2023 8:51 AM CDT Respiratory Rate 18 02/05/2024 10:14 AM CDT Oxygen Saturation 97% 07/23/2024 10:05 AM PHLEBOTOMY TECHNICIAN Inhaled Oxygen Concentration - - Weight 113.9 kg (251 lb) 11/21/2024 10:58 AM CDT Height 182.9 cm (6') 11/21/2024 10:58 AM CDT Body Mass Index 34.04 11/21/2024 10:58 AM CDT Plan of Treatment Not on file Medical Devices Implanted Type Area Nuclear Worker Technician Device Identifier Shelf Expiration Date Model / Serial / Lot Icd-05/12/2010 Implanted: 010 by Dana Charles (Quantity not on file) ICD Chest [employer] ICM, PAF TELIGEN E110 / [id number] / Description:Chronic leads fr om 2000. [employer] C.R.M. Momentum X4 Heartlogic Enduralife Smartcrt 5.37x8.08cm Is-1 Df-1 G138 - [id number] - [id number] Implanted:Qty: 1 on 05/17/2022 by Rene Macedo MD at [facility] ICD [employer] C.R.M. [id number] 12/24/2023 G138 / [id number] / Lead Pacing Acuity X4 Irox Mp35n Titanium Dexamethasone Acetate 4 Cm Space L95 Cm Od3.9-5.2 Fr Odsec2.6 Fr Left Ventricular Otw Quadripolar Long Straight Taper Tip Accept .081 In Guide Catheter Is4-Ll Implanted:Qty: 1 on 05/17/2022 by Rene Macedo MD at [facility] Lead [employer] Maverick [id number] 12/22/2023 [id number] / [id number] / Medtronic Card Vasc Surgery 2.50 X 12mm [place] Gage Rx Coronary Stent [id number] - [id number] Implanted:Qty: 1 on 11/29/2023 by Edinson Aguila MD at [facility] Medtronic Card Vasc Surgery 10/03/2026 [id number] / / [id number] 2000 Medtronic [facility] Vasc Surgery 2.50 X 12mm [place] Gage Rx Coronary Stent [id number] - [id number] Implanted:Qty: 1 on 11/29/2023 by Edinson Aguila MD at [facility] Medtronic [facility] Vasc Surgery 05/23/2026 [id number] / / [id number] [facility] Vas Surgery 3.0 X 18mm [place] Gage Rx Coronary Stent [id number] - [id number] Implanted:Qty: 1 on 11/29/2023 [facility] Vasc Surgery 08/26/2026 [id number] / / [id number] 2000 [employer] [facility] Device Vascular Closure Femoral Artery Bioabsorbable Dual Method Vascade 6-7fr Collagen [id number] - [id number] Implanted:Qty: 1 on 11/29/2023 by Edinson Aguila MD at [facility] [employer] 07/05/2025 [id number] / / [id number] Procedures Procedure Name Priority Date/Time Associated [...] Modality Other Narrative 10/08/2024 3:23 PM CDT Lavaboom BIV ICD upgrade. Dx; ICM, CHF, PAF. DOI 05/17/2022-vikas Macedo A & RV leads 2000. [facility]. Latitude remote monitoring. Supervising MD: Dr Aguila. [...] f/u 01/13/2026. Latitude remote f/u 01/07/2025. Radha Perez, RN Tri Nuñez MD CV CARDIAC SERVICES PROCEDU RES Final Result from Last 3 [place] [address] [place] [address] [facility] MEDICARE SUPPLEMENT MEDICARE [facility] MEDICARE SUPPLEMENT Advance Directives For more information, please contact: [phone] * Full Code (Latest Code Status on File) Date Activated Date Inactivated Comments 05/17/2022 4:43 PM 05/18/2022 4:43 PM Care Teams Tour Narrator Relationship Specialty Start Date End Date Abraham Leon MD [address] [place] [id number] PCP - General 09/01/16
== END 2024-12-16 15:25 | disposition home or self-care (01) ==
PROVIDERS: PCP Internal Medicine; Visit Provider Internal Medicine
DX: Z51.81 Encounter for therapeutic drug level monitoring (principal); Z79.899 Other long term (current) drug therapy
CPT/HCPCS: 71046

== ENCOUNTER 2025-01-13 08:30 | Outpatient (CLI) | payer MEDICARE, SELFPAY ==
--- OUTSIDE RECORDS SUMMARY | 2025-01-13 08:52 | XMS_ITS | Encounter Summary ---
Author Organization [facility] Address [address] [facility] [address] [place] [address] Care Team Providers Care Dining Room Cashier Name Role Phone Abraham Leon MD Primary Care Provider [phone] Abraham Leon MD Primary Care Provider + [phone] Encounter Details Date Type Department Care Team (Late st Contact Info) Description 06/15/2016 Orders Only [facility] ProviderCaitlin MD [address] [place] [address] Social History Tobacco Use Types Packs/Day Years Used Date Smoking Tobacco: Never Alcohol Use Standard Drinks/Week Comments No 0 (1 standard drink = 0.6 oz pur e alcohol) Sex and Gender Information Value Date Recorded Sex Assigned at Not on file 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
--- OUTSIDE RECORDS SUMMARY | 2025-01-13 08:52 | XMS_ITS | Encounter Summary ---
Author Organization [facility] Address [address] [facility] [address] [place] [address] Care Team Providers Care Marketing Operations Coordinator Name Role Phone Abraham Leon MD Primary Care Provider [phone] Abraham Leon MD Primary Care Provider [phone] Encounter Details Date Type Department Care Team (Late st Contact Info) Description 06/22/2016 Orders Only [facility] ProviderCaitlin MD [address] [place] [address] Social History Tobacco Use Types Packs/Day Years Used Date Smoking Tobacco: Never Alcohol Use Standard Drinks/Week Comments No 0 (1 standard drink = 0.6 oz pur e alcohol) Sex and Gender Information Value Date Recorded Sex Assigned at Not on file Legal 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
--- OUTSIDE RECORDS SUMMARY | 2025-01-13 08:52 | XMS_ITS | Clinical Summary ---
Author Organization [facility] Address [address] [place] [address] Care Team Providers Care Manager Of Software Development Name Role Phone Abraham Leon MD Primary Care Provider [phone] Allergies Active Allergy Reactions Criticality Noted Date [...] 1 tablet (75 mcg total) by mouth pulpwood dealer before breakfast 09/08/19 21 Active docusate sodium (COLACE) 100 mg capsuleIndica tions:constip ation Take 3 capsules (300 mg total) by mouth nightly Active apixaban (ELIQUIS) 5 mg tablet Take 1 tablet (5 mg total) by mouth 2 (two) times a day 60 tablet 11 01/09/20 24 Active sacubitriL-va lsartan (ENTRESTO) 97-103 mg tabletIndicat ions:chronic heart failure Take 1 tablet by mouth [...] 25 Active nitroglycerin (NITROSTAT) 0.4 mg SL tabletIndicat ions:Coronary artery disease of [place] artery of [place]opa heart with stable angina pectoris DISSOLVE 1 [...] DAILY 90 tablet 2 12/02/19 25 Active furosemide (LASIX) 40 mg tabletIndicat ions: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 90 tablet 1 12/23/19 25 Active rosuvastatin (CRESTOR) 20 mg tabletIndicat ions:Coronary artery disease of [place] artery of hoopa heart with stable angina pectoris TAKE 1 TABLET(20 MG) BY MOUTH DAILY 90 tablet 1 12/30/19 25 Active furosemide (LASIX) 40 mg tabletIndicat ions: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 90 tablet 3 07/24/19 24 025 Discontinued(Re order) rosuvastatin (CRESTOR) 20 mg tabletIndicat ions:Coronary artery disease of ho[place] artery of hoopa heart with stable angina pectoris TAKE 1 TABLET(20 MG) BY MOUTH DAILY 90 tablet 3 11/16/19 24 025 Discontinued Active Problems Problem Noted Date [...] le cardioverter-defibrillator) in place 01/09/2017 Overview (05/19/2022): Stribe BIV ICD upgrade. Dx; ICM, CHF, PAF. DOI 05/17/2022-[place], chronic A & RV leads 2000. [facility]. Latitude remote monitoring. Assessment & Plan [...] artery disease of n ative artery of hoopa heart with stable angina pectoris 01/04/2017 Assessment & Plan (01/09/2017 7:55 PM CDT): Remote large anterior CA , status post PTCA of the LAD. Recent stress test showed a large infarction but no reversible ischemia The patient has been very stable but admits to exertional angina now, no record changer the last several months. Sounds like stable [...] (04/07/2022): Added automatically from request for surgery [id number] Pacemaker lead malfunction 09/03/2018 0 09/03/2018 Malfunction [...] Encounters Date Type Department Care Team Description 01/09/2025 4:30 PM CDT Telemedicine [facility] Neuro Muscle [address] [facility] 6th [place] [address] Yoselyn Miranda PA 01/07/2025 7:00 AM CDT Ancillary Procedure [facility] Cardiology [address] [facility] [address], [place] [address] Cardiomyopathy, ischemic; PAF (paroxysmal atrial fibrillation); NSVT (nonsustained ventricular tachycardia) ([facility]) 12/16/2024 Orders Only [facility] Health Information Management [address] [place] [address] Scanning, Provider 11/21/2024 11:30 AM CDT Office Visit [facility] Neuro Muscle [address] [facility] 6th [place] [address] Yoselyn Miranda PA Chronic bilateral low back pain with right-sided sciatica (Primary Dx); Bilateral leg numbness from Last 3 Months Surgical History Surgery [...] on file 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 Gender Identity Not on file Sexual Orientation Not on file Obstetrics History Last Filed Vital Signs Vital Sign Reading Time Taken Comments Blood Pressure 104/66 11/21/2024 10:58 AM CDT Pulse 60 11/21/2024 10:58 AM CDT Temperature 36.4 C (97.6 F) 11/29/2023 8:51 AM CDT Respiratory Rate 18 02/05/2024 10:14 AM CDT Oxygen Saturation 97% 07/23/2024 10:05 AM CONFIGURATION MANAGEMENT ARCHITECT Inhaled Oxygen Concentration - - Weight 113.9 [...] 02/17/2021, 10/04 Medical Devices Implanted Type Area Vacuum Worker Device Identifier Shelf Expiration Date Model / Serial / Lot Icd-05/12/2010 Implanted: 010 by Dana Charles (Quantity not on file) ICD Chest [employer] ICM, PAF TELIGEN E110 / [id number] / Description:Chronic leads fr om 2000. [employer] C.R.M. Momentum X4 Heartlogic Enduralife Smartcrt 5.37x8.08cm Is-1 Df-1 G138 - [id number] - [id number] Implanted:Qty: 1 on 05/17/2022 by Rene Macedo MD at [facility] ICD [employer] C.R.M. [id number] 12/24/2023 G138 / [id number] / Lead Pacing Acuity X4 Irox Mp35n Titanium Dexamethasone Acetate 4 Cm Space L95 Cm Od3.9-5.2 Fr Odsec2.6 Fr Left Ventricular Otw Quadripolar Long Straight Taper Tip Accept .081 In Guide Catheter Is4-Ll Implanted:Qty: 1 on 05/17/2022 by Rene Macedo MD at [facility] Lead [employer] Maverick [id number] 12/22/2023 [id number] / [id number] / Medtronic Card Vasc Surgery 2.50 X 12mm Toby Powell Rx Coronary Stent [id number] - [id number] Implanted:Qty: 1 on 11/29/2023 by Edinson Aguila MD at [facility] Medtronic Card Vasc Surgery 10/03/2026 [id number] / / [id number] 2000 Medtronic Card Vasc Surgery 2.50 X 12mm [place] Powell Rx Coronary Stent [id number] - [id number] Implanted:Qty: 1 on 11/29/2023 [facility] Vasc Surgery 05/23/2026 [id number] / / [id number] [facility] Vas Surgery 3.0 X 18mm Toby Powell Rx Coronary Stent [id number] - [id number] Implanted:Qty: 1 on 11/29/2023 by Edinson Aguila MD at [facility] Medtronic Card Vasc Surgery 08/26/2026 [id number] / / [id number] 2000 [employer] [facility] Device Vascular Closure Femoral Artery Bioabsorbable Dual Method Vascade 6-7fr Collagen [id number] - [id number] Implanted:Qty: 1 on 11/29/2023 by Edinson Aguila MD at [facility] [employer] 07/05/2025 [id number] / / [id number] Procedures Procedure Name Priority Date/Time Associated Diagnosis Comments SCAN - OTHER ORDERS 12/16/2024 from Last 3 Months Results * SCAN - OTHER ORDERS (12/16/2024) Provider Scanning Final Result from Last 3 Months Insurance MEDICARE [facility] MEDICARE SUPPLEMENT MEDICARE [facility] MEDICARE SUPPLEMENT Advance Directives For more information, please contact: [phone] * Full Code (Latest Code Status on File) Date Activated Date Inactivated Comments 05/17/2022 4:43 PM 05/18/2022 4:43 PM Care Teams Manager Of Software Development Relationship Specialty Start Date End Date Abraham Leon MD [address] [place], [place] [id number] PCP - General 09/01/16
--- OUTSIDE RECORDS SUMMARY | 2025-01-13 08:52 | XMS_ITS | Encounter Summary ---
Author Organization [facility] Address [address] [facility] [address] [place] [address] Care Team Providers Care Social Worker Psychiatric Name Role Phone Abraham Leon MD Primary Care Provider [phone] Abraham Leon MD Primary Care Provider + [phone] Encounter Details Date Type Department Care Team (Late st Contact Info) Description 06/07/2016 Orders Only [facility] ProviderCaitlin MD [address] [place] [address] Social History Tobacco Use Types Packs/Day Years Used Date Smoking Tobacco: Never Alcohol Use Standard Drinks/Week Comments No 0 (1 standard drink = 0.6 oz pur e alcohol) Sex and Gender Information Value Date Recorded Sex Assigned at Not on file 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
[2025-01-13 10:12] LABS: Alanine Aminotransferase 14 U/L (6-50); Albumin Level 4.7 g/dL (3.5-5.1); Alkaline Phosphatase 57 U/L (38-126); Anion Gap 7 mmol/L (4-12); Aspartate Amino Transferase 30 U/L (17-59); Bilirubin,Total 0.6 mg/dL (0.2-1.3); Blood Urea Nitrogen 14 mg/dL (9-20); Calcium 9.5 mg/dL (8.4-10.2); Carbon Dioxide 28 mmol/L (22-30); Chloride 101 mmol/L (98-107); Estimated Glomerular Filt Rate > 60; Glucose 106 mg/dL (65-110); Potassium 4.0 mmol/L (3.4-5.0); Sodium 136 mmol/L (137-145); Total Protein 7.9 g/dL (6.3-8.2)
[2025-01-15 03:07] LABS: TSH 3.760 uIU/mL (0.450-4.500)
== END 2025-01-13 08:31 | disposition home or self-care (01) ==
PROVIDERS: PCP Internal Medicine; Visit Provider Internal Medicine Cardiovascular Disease
DX: G62.9 Polyneuropathy, unspecified (principal); Z79.899 Other long term (current) drug therapy
CPT/HCPCS: 36415; 80053; 84439; 84443; 84481; 86376

== ENCOUNTER 2025-02-09 08:00 | Outpatient (RCR) | payer MEDICARE, SELFPAY ==
--- NOTE | 2025-01-05 17:19 | OPREHPOC ---
Outpatient Therapy Plan of Care This is a Multidisciplinary Plan of Care that may contain components documented by all disciplines (PT, OT, and ST.) PT Problem 1 PT Problem #1 Knowledge Deficit PT Goal 1 Goal / Goal Update [place] with HEP Target Visit 4 PT Goal 2 Goal / Goal Update Report no back pain greater than 2/10 for 2 consecutive weeks Target Visit 8 PT Problem 2 PT Problem #2 Impaired Range of Motion PT Goal 1 Goal / Goal Update Demonstrate 40 degrees of yamilet hip abduction motion Target Visit 8 PT Problem 3 PT Problem #3 Impaired Strength PT Goal 1 Goal / Goal Update 1. Improve yamilet hip abduction strength to 4+/5 to improve lateral stability with gait and mobility 2. Improve yamilet hip flexion strength 4+/5 to improve foot clearance with foot progression Target Visit 8
--- NOTE | 2025-01-05 17:19 | PTOPEVAL1 ---
Assessment and note entered by Jaswant Alonso, PT Evaluation Information Assessment Status Evaluation ICD-10 Condition Codes (PT) Radiculopathy, lumbar region M54.16 Onset July 2024 Subjective Information Reports that a couple of weeks after finishing cardiac rehab he started noticing balance problems , neuropathy, and leg weakness. Numbness is symmetrical and bilateral. Pain is typically worse on the right foot at the big. He has no trouble sleeping but he has some tingling and pain in his toes. Mornings are typically his best times. His back pain is constant at this point in time. Pain is currently fair. Reported Pain Level Pain Score 2: Self Report Assessment PT Clinical Summary Patient presents with sings and symptoms of severe lumbar stenosis with increasing pain with activity. Pain is relieved with supine activity and lumbar distraction. Patient will benefit form skilled therapy to address these deficits to restore tank terminal gauger leg and hip strength and gross functional stability. Plan of Care Interventions Hot Pack/Cold Pack,Manual Therapy,Neuro Re- education,Therapeutic Activities,Therapeutic Exercise PT Services Indicated Yes Treatment Frequency and 2x/week for 8 visitis Duration These treatments will address the objective and functional deficits as defined above. The patient will be advanced safely and appropriately in order for the patient to progress towards his/her prior level of function. Additional exercises will be introduced and as well as a comprehensive home exercise program upon discharge, if needed, ?to ensure carryover of functional gains achieved in the clinic. This treatment plan has been reviewed and agreement upon by the patient.
--- NOTE | 2025-02-09 09:59 | OPREHPOC ---
Outpatient Therapy Plan of Care This is a Multidisciplinary Plan of Care that may contain components documented by all disciplines (PT, OT, and ST.) PT Problem 1 PT Problem #1 Knowledge Deficit PT Goal 1 Goal / Goal Update [place] with HEP Target Visit 4 Progress Met PT Goal 2 Goal / Goal Update Report no back pain greater than 2/10 for 2 consecutive weeks Target Visit 8 Progress Met PT Problem 2 PT Problem #2 Impaired Range of Motion PT Goal 1 Goal / Goal Update Demonstrate 40 degrees of yamilet hip abduction motion Target Visit 8 Progress Met PT Problem 3 PT Problem #3 Impaired Strength PT Goal 1 Goal / Goal Update 1. Improve yamilet hip abduction strength to 4+/5 to improve lateral stability with gait and mobility 2. Improve yamilet hip flexion strength 4+/5 to improve foot clearance with foot progression Target Visit 8 Progress Met
--- NOTE | 2025-02-09 09:59 | PTOPDC ---
Assessment and note entered by Jaswant Alonso, PT Evaluation Information Assessment Status Discharge ICD-10 Condition Codes (PT) Radiculopathy, lumbar region M54.16 Onset July 2024 Subjective Information Reports that overall he feels that therapy has really helped. Continues to have some balance issues from the peripheral neuropathy. Back pain has significantly improved. Feels that he has learned compensations for his balance issues and neuropathy. Reported Pain Level Pain Score 0: Self Report Assessment PT Clinical Summary Patient has met majority of goals for therapy at this time. Pain is controlled and he feels comfortable with exercise to continue to maintain strength and ROM of hips for usp functional progress and maintenance. Plan of Care PT Services Indicated Yes
== END 2025-02-09 11:20 | disposition home or self-care (01) ==
LOC: ANHPT 08:00
PROVIDERS: PCP Internal Medicine
DX: M54.41 Lumbago with sciatica, right side (principal); R20.0 Anesthesia of skin; G89.29 Other chronic pain
CPT/HCPCS: 36415; 80053; 84439; 84443; 84481; 86376; 97110; 97112; 97116; 97140; 97161; 97530

== ENCOUNTER 2025-03-20 09:27 | Outpatient (CLI) | payer MEDICARE, SELFPAY ==
--- OUTSIDE RECORDS SUMMARY | 2025-03-20 10:01 | XMS_ITS | Encounter Summary ---
Author Organization [facility] Address [address] [facility] [address] [place] [address] Care Team Providers Care Director Reactor Projects Name Role Phone Abraham Leon MD Primary Care Provider [phone] Abraham Leon MD Primary Care Provider + [phone] Encounter Details Date Type Department Care Team (Late st Contact Info) Description 06/07/2016 Orders Only [facility] ProviderCaitlin MD [address] [place] [address] Social History Tobacco Use Types Packs/Day Years Used Date Smoking Tobacco: Never Alcohol Use Standard Drinks/Week Comments No 0 (1 standard drink = 0.6 oz pur e alcohol) Sex and Gender Information Value Date Recorded Sex Assigned at Not on file Legal 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
--- OUTSIDE RECORDS SUMMARY | 2025-03-20 10:01 | XMS_ITS | Clinical Summary ---
Author Organization [facility] Address [address] [place] [address] Care Team Providers Care Semiconductor Wafers Saw Operator Name Role Phone Abraham Leon MD Primary Care Provider [phone] Allergies Active Allergy Reactions Criticality Noted Date Comments Simvastatin Other (See comments) Low 08/22/2017 Muscle aches and elevated liver enzymes Spironolactone Other (See comments) Low 03/17/2021 Breast enlargement, 2018 Sulfa (Sulfonamide Antibiotics) Rash Medium Medications folic acid (FOLVITE) 400 mcg tablet take 1 tablet by oral route every day 0 0 3 Active multivitamin tablet tablet take 1 tablet by oral route every day with food 0 3 Active Linzess 145 mcg capsule SPRINKLE ENTIRE CONTENTS OF 1 CAPSULE ON SMALL AMOUNT OF APPLESAUCE AND TAKE IMMEDIATELY BY MOUTH ONCE DAILY ON AN EMPTY STOMACH AT LEAST 30 0 Active levothyroxine (SYNTHROID) 75 mcg tablet Take 1 tablet (75 mcg total) by mouth huc ob before breakfast 1 Active docusate sodium (COLACE) 100 mg capsuleIndicati ons:constipatio n Take 3 capsules (300 mg total) by mouth nightly Active apixaban (ELIQUIS) 5 mg tablet Take 1 tablet (5 mg total) by mouth 2 (two) times a day 60 tablet 11 4 Active gabapentin (NEURONTIN) 300 mg capsule Take 1 capsule (300 mg total) by mouth 4 Active eplerenone (INSPRA) 25 mg tablet TAKE 1 TABLET(25 MG) BY MOUTH DAILY 90 tablet [address] (PROTONIX) 40 mg EC tablet Take 1 tablet (40 mg total) by mouth daily 90 tablet 3 5 11/12/19 26 Active metoprolol XL (TOPROL-XL) 25 mg extended release tablet TAKE 2 TABLETS(50 MG) BY MOUTH DAILY 180 tablet 1 5 Active clopidogreL (PLAVIX) 75 mg tablet TAKE 1 TABLET(75 MG) BY MOUTH DAILY 90 tablet 2 5 Active furosemide (LASIX) 40 mg tabletIndicatio ns: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 Dx; ICM, CHF, PAF. DOI 05/17/2022-[place], chronic A & RV leads 2000. [facility]. Latitude remote monitoring. Assessment [...] artery disease of n ative artery of king salmon heart with stable angina pectoris 01/04/2017 Assessment & Plan (01/09/2017 7:55 PM CDT): Remote large anterior VT , status post PTCA of the LAD. Recent stress test showed a large infarction but no reversible ischemia The patient has been very stable but admits to exertional angina now, no telephone exchange operator the last several months. 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; Status post angioplasty with stent; 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 [Z95.810]; PAF (paroxysmal atrial fibrillation); Chronic anticoagulation 01/19/2025 Results Follow-Up [facility] [address] [place] [address] [place] [phone] Edinson Aguila MD Thyroid Function Elliott 01/09/2025 4:30 PM CDT Telemedicine [facility] [address] [facility] [address] [facility] [address] 6[address] [place] [address] [place] [address] Yoselyn Miranda PA Chronic bilateral low back pain with right-sided sciatica (Primary Dx); Bilateral leg numbness 01/07/2025 7:00 AM CDT Ancillary Procedure [facility] [address] [place] [address] [place] [phone] Chronic combined systolic and diastolic CHF (congestive heart failure) (HCC) [I50.42] (Primary Dx); Cardiomyopathy, ischemic; PAF (paroxysmal atrial fibrillation); NSVT (nonsustained ventricular tachycardia) (HCC); 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 [Z95.810] from Last 3 Months Surgical History Surgery [...] on file Legal Sex Male 1:30 PM 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 LEAD Gender Identity Not on file Sexual Orientation Not on file Obstetrics History Last Filed Vital Signs Vital Sign Reading Time Taken Comments Blood Pressure 90/54 01/21/2025 10:24 AM CDT Pulse 60 01/21/2025 10:24 AM CDT Temperature 36.4 C (97.6 F) 11/29/2023 8:51 AM CDT Respiratory Rate 18 02/05/2024 10:14 AM CDT Oxygen Saturation 97% 01/21/2025 10:24 AM CDT Inhaled Oxygen Concentration - - Weight 106.1 kg (234 lb) 01/21/2025 10:24 AM CDT Height 182.9 cm (6') 01/21/2025 10:24 AM CDT Body Mass Index 31.74 01/21/2025 10:24 AM CDT Plan of Treatment Health Maintenance Due Date Last Done Comments Depression Screening 1945 Hepatitis C Screening 1945 Hepatitis B Screening 1964 Zoster Vaccine (1 of 2) 1996 Well Visit 65+ 2011 Fall Risk Assessment 11/28/2024 11/29/2023, 10/09/2023, 10/03/2022, Additional history exists Covid-19 Vaccine (5 - 2024-2 6 season) 2025 09/20/2021, 04/24/2021, 08/23/2020, Additional history exists Influenza Vaccine (#1) 2025 , 02/04/2020, 02/02/2020, Additional history exists DTaP/Tdap/Td Vaccine (2 - Td or Tdap) 06/29/2030 06/29/2020 Pneumococcal vaccine 65+ Completed 021, 02/17/2021, 11/02/2015 Medical Devices Implanted Type Area Project Design Engineer Device Identifier Shelf Expiration Date Model / Serial / Lot Icd-05/12/2010 Implanted: 010 by Dana Charles (Quantity not on file) ICD Chest [employer] ICM, PAF TELIGEN E110 / [id number] / Description:Chronic leads fr om 2000. [employer] C[employer].M. Momentum X4 Heartlogic Enduralife Smartcrt 5.37x8.08cm Is-1 Df-1 G138 - [id number] - [id number] Implanted:Qty: 1 on 05/17/2022 by Rene Macedo MD at [facility] ICD [employer] C.R.M. [id number] 12/24/2023 G138 / [id number] / Lead Pacing Acuity X4 Irox Mp35n Titanium Dexamethasone Acetate 4 Cm Space L95 Cm Od3.9-5.2 Fr Odsec2.6 Fr Left Ventricular Otw Quadripolar Long Straight Taper Tip Accept .081 In Guide Catheter Is4-Ll Implanted:Qty: 1 on 05/17/2022 by Rene Macedo MD at [facility] Lead [employer] [place]ick [id number] 12/22/2023 4672 / [id number] / Medtronic Card Vasc Surgery 2.50 X 12mm Toby [place]field Rx Coronary Stent [id number] - [id number] Implanted:Qty: 1 on 11/29/2023 by Edinson Aguila MD at [facility] [employer] Card Vasc Surgery 10/03/2026 [id number] 2UX / / [id number] [employer]onic Card Vasc Surgery 2.50 X 12mm Hope Wakefield Rx Coronary Stent [id number] - [id number] Implanted:Qty: 1 on 11/29/2023 by Edinson Aguila MD at [facility] [employer]onic Card Vasc Surgery 05/23/2026 [id number] / / [id number] Medtronic Card Vasc Surgery 3.0 X 18mm Toby [place] Rx Coronary Stent [id number] - [id number] Implanted:Qty: 1 on 11/29/2023 by Edinson Aguila MD at [facility] Med[employer]onic Card Vasc Surgery 08/26/2026 [id number] / / [id number] [employer] Device Vascular Closure Femoral Artery Bioabsorbable Dual Method Vascade 6-7fr Collagen [id number] - [id number] Implanted:Qty: 1 on 11/29/2023 by Edinson Aguila MD at [facility] [employer] 07/05/2025 [id number] / / [id number] Procedures Procedure Name Priority Date/Time Associated Diagnosis Comments COMPREHENSIVE METABOLIC PANEL Routine 01/13/2025 Cardiomyopathy, ischemic THYROID FUNCTION CASCADE Routine 01/13/2025 Cardiomyopathy, ischemic DEVICE CHECK - REMOTE Routine 01/07/2025 7:33 AM CDT Cardiomyopathy, ischemic PAF (paroxysmal atrial fibrillation) NSVT (nonsustained ventricular tachycardia) (HCC) from Last 3 Months Results * Thyroid Function Elliott (01/13/2025) Blood 01/13/2025 Impressions EXTERNAL LAB - 01/19/2025 11:08 AM CDT TSH 3.760 Ref: 0.450 - 4.500 uIU/mL us Edinson Aguila MD LAB BLOOD ORDERABLES Final Resul t EXTERNAL LAB * (ABNORMAL) Comprehensive metabolic panel (01/13/2025) SCRIBED Sodium 136(A) 137 - 145 mmol/L EXTERNAL LAB SCRIBED Potassium 4.0 3.4 - 5.0 mmol/L EXTERNAL LAB SCRIBED Chloride 101 98 - 107 mmol/L EXTERNAL LAB SCRIBED Carbon Dioxide 28 22 - 30 mmol/L EXTERNAL LAB SCRIBED Anion Gap 7 4 - 12 mmol/L EXTERNAL LAB SCRIBED Urea Nitrogen (BUN) 14 9 - 20 mg/dl EXTERNAL LAB SCRIBED Creatinine 1.02 0.7 - 1.3 mg/dl EXTERNAL LAB SCRIBED Glucose 106 65 - 110 mg/dl EXTERNAL LAB SCRIBED Calcium 9.5 8.4 - 10.2 mg/dl EXTERNAL LAB SCRIBED Bilirubin 0.6 0.2 - 1.3 mg/dl EXTERNAL LAB SCRIBED Plasma Protein 7.9 6.3 - 8.2 g/dl EXTERNAL LAB SCRIBED Albumin 4.7 3.5 - 5.1 g/dl EXTERNAL LAB SCRIBED Alkaline Phosphatase 57 38 - 126 Units/L EXTERNAL LAB SCRIBED Alanine Transaminase (ALT) 14 6 - 50 Units/L EXTERNAL LAB SCRIBED Aspartate Transaminase (AST) 30 17 - 59 Units/L EXTERNAL LAB SCRIBED eGFR N/A N/A EXTERNAL LAB SCRIBED eGFR >60 > or = 60 EXTERNAL LAB Blood 01/13/2025 us Edinson Aguila MD LAB BLOOD ORDERABLES Final Resul t EXTERNAL LAB * DEVICE CHECK - REMOTE (01/07/2025 7:33 AM CDT) Anatomical Region Laterality Modality Other Narrative 01/20/2025 1:44 PM CDT [employer] Momentum BIV ICD upgrade. Dx; ICM, CHF, PAF. DOI 05/17/2022-vikas Macedo A & RV leads 2000. [place]. Latitude remote monitoring. Routine DDD ICD Remote. Transmission attached. Battery status Ok, 6.5 years remaining battery life to MELODY. Stable Charge time and Shock impedance. Stable lead impedances, pacing, and sensing threshold. Presenting rhythm: AP BIVP. AP-71 %, RVP-100 %, LVP-99 %. (8) AT/AF episodes noted. IEGM demonstrates AT/AF. Longest duration 13 hr 27 min. (No) Ventricular tachy arrhythmias detected. Medication: Eliquis, Plavix, Pacerone, Toprol XL, Entresto. Follow up: Office Pacemaker/ICD scheduled 01/13/2026. Latitude remote 04/08/2025. Radha Perez RN Edinson Aguila MD CV CARDIAC SERVICES PROCEDURES F inal Result from Last 3 Months Insurance MEDICARE [facility] Address: [address] [address] [place] [address] [facility] MEDICARE SUPPLEMENT MEDICARE [facility] MEDICARE SUPPLEMENT Advance Directives For more information, please contact: [phone] * Full Code (Latest Code Status on File) Date Activated Date Inactivated Comments 05/17/2022 4:43 PM 05/18/2022 4:43 PM Care Teams Semiconductor Wafers Saw Operator Relationship Specialty Start Date End Date Abraham Leon MD [address] [place] [address] PCP - General 09/01/16
--- OUTSIDE RECORDS SUMMARY | 2025-03-20 10:01 | XMS_ITS | Encounter Summary ---
Author Organization [facility] Address [address] [facility] [address] [place] [address] Care Team Providers Care Training Systems Officer Name Role Phone Abraham Leon MD Primary Care Provider [phone] Abraham Leon MD Primary Care Provider + [phone] Encounter Details Date Type Department Care Team (Late st Contact Info) Description 06/15/2016 Orders Only [facility] ProviderCaitlin MD [address] [place] [address] Social History Tobacco Use Types Packs/Day Years Used Date Smoking Tobacco: Never Alcohol Use Standard Drinks/Week Comments No 0 (1 standard drink = 0.6 oz pur e alcohol) Sex and Gender Information Value Date Recorded Sex Assigned at Not on file 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
--- OUTSIDE RECORDS SUMMARY | 2025-03-20 10:01 | XMS_ITS | Encounter Summary ---
Author Organization [facility] Address [address] [facility] [address] [place] [address] Care Team Providers Care Hide Paster Name Role Phone Abraham Leon MD Primary Care Provider [phone] Abraham Leon MD Primary Care Provider + [phone] Encounter Details Date Type Department Care Team (Late st Contact Info) Description 06/22/2016 Orders Only [facility] ProviderCaitlin MD [address] [place] [address] Social History Tobacco Use Types Packs/Day Years Used Date Smoking Tobacco: Never Alcohol Use Standard Drinks/Week Comments No 0 (1 standard drink = 0.6 oz pur e alcohol) Sex and Gender Information Value Date Recorded Sex Assigned at Not on file Legal 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
[2025-03-20 10:11] LABS: Hematocrit 38.8 % (42.0-52.0); Hemoglobin 12.9 g/dL (14.0-18.0); Mean Corpuscular HGB Conc 33.2 g/dl (32-36); Mean Corpuscular Hemoglobin 30.2 pg (26-34); Mean Corpuscular Volume 90.9 fl (80-100); Platelet Count Result 147 k/mm3 (150-375); Red Blood Count 4.27 M/mm3 (4.6-6.20); White Blood Count 4.5 K/mm3 (4.5-10.0)
[2025-03-20 10:40] LABS: Alanine Aminotransferase 15 U/L (6-50); Albumin Level 4.3 g/dL (3.5-5.1); Alkaline Phosphatase 52 U/L (38-126); Anion Gap 7 mmol/L (4-12); Aspartate Amino Transferase 27 U/L (17-59); Bilirubin,Total 0.7 mg/dL (0.2-1.3); Blood Urea Nitrogen 12 mg/dL (9-20); Calcium 8.9 mg/dL (8.4-10.2); Carbon Dioxide 27 mmol/L (22-30); Chloride 103 mmol/L (98-107); Estimated Glomerular Filt Rate > 60; Glucose 107 mg/dL (65-110); Potassium 4.0 mmol/L (3.4-5.0); Sodium 137 mmol/L (137-145); Total Protein 7.2 g/dL (6.3-8.2)
[2025-03-20 10:46] LABS: Free T3 2.92 pg/mL (2.45-5.93); Free T4 Free Thyroxine 1.75 ng/dL (0.78-2.19)
[2025-03-20 10:47] LABS: NT Pro B Type Natriuretic Pept 458 pg/mL (19.9-100)
[2025-03-20 11:09] LABS: Thyroid Stimulating Hormone 2.780 uIU/mL (0.465-4.680)
== END 2025-03-20 09:28 | disposition home or self-care (01) ==
PROVIDERS: PCP Internal Medicine; Visit Provider Internal Medicine
DX: I48.0 Paroxysmal atrial fibrillation (principal); I95.9 Hypotension, unspecified; E03.4 Atrophy of thyroid (acquired)
CPT/HCPCS: 36415; 80053; 83880; 84439; 84443; 84481; 85027

== ENCOUNTER 2025-05-29 14:09 | Outpatient (CLI) | payer MEDICARE, SELFPAY ==
--- OUTSIDE RECORDS SUMMARY | 2025-05-29 14:14 | XMS_ITS | Encounter Summary ---
Author Organization [facility] Address [address] [address] Care Team Providers Care Brim Shaper Name Role Phone Abraham Leon MD Primary Care Provider + [phone] Abraham Leon MD Primary Care Provider + [phone] Encounter Details Date Type Department Care Team (Late st Contact Info) Description 06/07/2016 Orders Only [facility] ProviderCaitlin MD [address] [place] [address] Social History Tobacco Use Types Packs/Day Years Used Date Smoking Tobacco: Never Alcohol Use Standard Drinks/Week Comments No 0 (1 standard drink = 0.6 oz pur e alcohol) Sex and Gender Information Value Date Recorded Sex Assigned at Not on file Legal 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
--- OUTSIDE RECORDS SUMMARY | 2025-05-29 14:14 | XMS_ITS | Encounter Summary ---
Author Organization [facility] Address [address] [address] Care Team Providers Care Sign Writer Hand Name Role Phone Abraham Leon MD Primary Care Provider + [phone] Abraham Leon MD Primary Care Provider + [phone] Encounter Details Date Type Department Care Team (Late st Contact Info) Description 06/22/2016 Orders Only [facility] ProviderCaitlin MD [address] [place] [address] Social History Tobacco Use Types Packs/Day Years Used Date Smoking Tobacco: Never Alcohol Use Standard Drinks/Week Comments No 0 (1 standard drink = 0.6 oz pur e alcohol) Sex and Gender Information Value Date Recorded Sex Assigned at Not on file Legal Sex Male 1:30 PM 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
--- OUTSIDE RECORDS SUMMARY | 2025-05-29 14:14 | XMS_ITS | Encounter Summary ---
Author Organization [facility] Address [address] [address] Care Team Providers Care Dust Collector Treater Name Role Phone Abraham Leon MD Primary Care Provider + [phone] Abraham Leon MD Primary Care Provider + [phone] Encounter Details Date Type Department Care Team (Late st Contact Info) Description 06/15/2016 Orders Only [facility] ProviderCaitlin MD [address] [place] [address] Social History Tobacco Use Types Packs/Day Years Used Date Smoking Tobacco: Never Alcohol Use Standard Drinks/Week Comments No 0 (1 standard drink = 0.6 oz pur e alcohol) Sex and Gender Information Value Date Recorded Sex Assigned at Not on file Legal 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
--- OUTSIDE RECORDS SUMMARY | 2025-05-29 14:14 | XMS_ITS | Clinical Summary ---
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 09/08/19 21 Active docusate sodium (COLACE) 100 mg capsuleIndicat ions:constipat ion Take 3 capsules (300 mg total) by mouth nightly Active gabapentin (NEURONTIN) 300 mg capsule Take 1 capsule (300 mg total) by mouth 05/05/20 24 Active eplerenone (INSPRA) 25 mg tablet TAKE 1 TABLET(25 MG) BY MOUTH DAILY 90 tablet 1 10/29/19 25 Active Additional Information Patient not taking.Reported on 05/12/[address] (PROTONIX) 40 mg EC tablet Take 1 tablet (40 mg total) by mouth daily 90 tablet 3 11/12/19 25 026 Active clopidogreL (PLAVIX) 75 mg tablet TAKE 1 TABLET(75 MG) BY MOUTH DAILY 90 tablet 2 12/02/19 25 Active furosemide (LASIX) 40 mg tabletIndicati ons: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 DISSOLVE 1 TABLET UNDER THE TONGUE NEEDED FOR CHEST PAIN EVERY 5 MINUTES CALL 911 IF THIRD DOSE IS NEEDED 25 tablet 01/14/20 25 Active empagliflozin (JARDIANCE) 10 mg tablet Take 1 tablet (10 mg total) by mouth daily 30 tablet 11 01/22/20 25 Active Eliquis 5 mg tablet TAKE 1 TABLET(5 MG) BY MOUTH TWICE DAILY 60 tablet 11 04/27/20 25 Active sacubitriL-valentine sartan (ENTRESTO) 97-103 mg tablet TAKE 1 TABLET BY MOUTH TWICE DAILY 60 tablet 3 05/25/20 25 Active amiodarone (PACERONE) 200 mg tablet TAKE 1/2 TABLET(100 MG) BY MOUTH DAILY 15 tablet 3 05/25/20 25 Active metoprolol XL (TOPROL-XL) 25 mg extended release tablet TAKE 2 TABLETS(50 MG) BY MOUTH DAILY 180 tablet 1 05/25/20 25 Active metoprolol XL (TOPROL-XL) 25 mg extended release tablet TAKE 2 TABLETS(50 MG) BY MOUTH DAILY 180 tablet 1 11/25/19 25 025 Discontinued amiodarone (PACERONE) 200 mg tablet TAKE 1/2 TABLET(100 MG) BY MOUTH DAILY 15 tablet 3 02/06/20 25 025 Discontinued Entresto 97-103 mg tablet TAKE 1 TABLET BY MOUTH TWICE DAILY 60 tablet 3 02/06/20 25 025 Discontinued Active Problems Problem Noted [...] le cardioverter-defibrillator) in place 01/09/2017 Overview (05/19/2022): [employer] BIV ICD upgrade. Dx; ICM, CHF, PAF. DOI 05/17/2022-Kahanda, chronic A & RV leads 2000. [facility]. Latitude remote monitoring. Assessment & Plan [...] artery disease of n ative artery of ramona heart with stable angina pectoris 01/04/2017 Assessment & Plan (01/09/2017 7:55 PM CDT): Remote large anterior FL , status post PTCA of the LAD. 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 Sounds like stable [...] (04/07/2022): Added automatically from request for surgery [id number] Pacemaker lead malfunction 09/03/2018 0 09/03/2018 Malfunction [...] Encounters Date Type Department Care Team Description 05/13/2025 11:48 AM INSURANCE REPRESENTATIVE - 05/13/2025 11:59 PM INSURANCE REPRESENTATIVE Hospital Encounter [facility] Radiology [address] [place] [address] Low back pain, non-specific; Other idiopathic peripheral autonomic neuropathy Discharge Disposition: Discharge to home or self care 05/13/2025 Documentation Cardiology Jacqueline Burleson NP 05/13/2025 Results Follow-Up [facility] Cardiology [address] [place] [address] [place] [address] [place] [address] Leana Renee NP XR Chest Pa Lateral 2 Views 05/12/2025 1:15 PM INSURANCE REPRESENTATIVE Office Visit [facility] Cardiology [address] [place] [address] [place] [address] [place] [address] Leana Renee NP Cardiomyopathy, ischemic (Primary Dx); Biventricular ICD (implantable cardioverter-defibr illator) in place; Chronic systolic congestive heart failure (HCC) 05/12/2025 1:14 PM INSURANCE REPRESENTATIVE - 05/12/2025 11:59 PM INSURANCE REPRESENTATIVE Hospital Encounter [facility] [address] [place] [id number] Cardiomyopathy, ischemic; Biventricular ICD (implantable cardioverter-defibr illator) in place; Chronic systolic congestive heart failure (HCC) Discharge Disposition: Discharge to home or self care 05/12/2025 12:45 PM INSURANCE REPRESENTATIVE Ancillary Procedure [facility] Cardiology [address] [place] [address] 8th [place] [address] [place] [address] Cardiomyopathy, ischemic 05/05/2025 Orders Only [facility] Cardiology [address] [facility] 8th [place] [address] [place] [address] Leana Renee NP Cardiomyopathy, ischemic (Primary Dx) 04/08/2025 7:45 AM INSURANCE REPRESENTATIVE Ancillary Procedure [facility] Cardiology [address] [facility] [address], [place] [address] Combined systolic and diastolic congestive heart failure, NYHA class 3, unspecified congestive heart failure chronicity (HCC) [I50.40] (Primary Dx); Cardiomyopathy, ischemic; PAF (paroxysmal atrial fibrillation); NSVT (nonsustained ventricular tachycardia) (HCC); Biventricular ICD (implantable cardioverter-defibr illator) in place [Z95.810] from Last 3 Months [...] on file Legal Sex Male 1:30 PM INSURANCE REPRESENTATIVE Gender Identity Not on file Sexual Orientation Not on file Last Filed Vital Signs Vital Sign Reading Time Taken Comments Blood Pressure 83/42 05/13/2025 1:44 PM INSURANCE REPRESENTATIVE Pulse 59 05/13/2025 1:44 PM INSURANCE REPRESENTATIVE Temperature 36.4 C (97.6 F) 11/29/2023 8:51 AM CDT Respiratory Rate 18 02/05/2024 10:14 AM CDT Oxygen Saturation 100% 05/13/2025 1:44 PM INSURANCE REPRESENTATIVE Inhaled Oxygen Concentration - - Weight 99.8 kg (220 lb) 05/12/2025 12:13 PM INSURANCE REPRESENTATIVE Height 182.9 cm (6') 05/12/2025 12:13 PM INSURANCE REPRESENTATIVE Body Mass Index 29.84 05/12/2025 12:13 PM INSURANCE REPRESENTATIVE Plan of Treatment Health Maintenance Due Date [...] 02/17/2021, 11/02/2015 Medical Devices Implanted Type Area Mental Health Director Device Identifier Shelf Expiration Date Model / Serial / Lot [employer] C.R.M. Momentum X4 Heartlogic Enduralife Smartcrt 5.37x8.08cm Is-1 Df-1 G138 - [id number] - [id number] Implanted:Qty: 1 on 05/17/2022 by Rene Macedo MD at [facility] ICD [employer] C.R.M. [id number] 12/24/2023 G138 / [id number] / [employer] Ra Lead 4471-10/02/2000 Implanted: 001 (Quantity not on file) Lead Heart [employer] C.R.M. 4471 / [id number] / [employer] Rv Lead 0148-10/02/2000 Implanted: 001 (Quantity not on file) Lead Heart [employer] C.R.M. 0148 / [id number] / Lead Pacing Acuity X4 Irox Mp35n Titanium Dexamethasone Acetate 4 Cm Space L95 Cm Od3.9-5.2 Fr Odsec2.6 Fr Left Ventricular Otw Quadripolar Long Straight Taper Tip Accept .081 In Guide Catheter Is4-Ll Implanted:Qty: 1 on 05/17/2022 by Rene Macedo MD at [facility] Lead [employer] Maverick [id number] 12/22/2023 4672 / [id number] / Medtronic Card Vasc Surgery 2.50 X 12mm Toby Turlock Rx Coronary Stent [id number] - [id number] Implanted:Qty: 1 on 11/29/2023 by Edinson Aguila MD at [facility] Medtronic Card Vasc Surgery 10/03/2026 [id number] 12UX / / [id number] Medtronic Card Vasc Surgery 2.50 X 12mm Broad Top Turlock Rx Coronary Stent [id number] - [id number] Implanted:Qty: 1 on 11/29/2023 by Edinson Aguila MD at [facility] Medtronic Card Vasc Surgery 05/23/2026 [id number] 12UX / / [id number] Medtronic Card Vasc Surgery 3.0 X 18mm Broad Top Turlock Rx Coronary Stent [id number] - [id number] Implanted:Qty: 1 on 11/29/2023 by Edinson Aguila MD at [facility] Medtronic Card Vasc Surgery 08/26/2026 [id number] 18UX / / [id number] eBillme Device Vascular Closure Femoral Artery Bioabsorbable Dual Method Vascade 6-7fr Collagen [id number] - [id number] Implanted:Qty: 1 on 11/29/2023 by Edinson Aguila MD at [facility] eBillme 07/05/2025 [id number] / / [id number] Explanted Type Area Mental Health Director Device Identifier Shelf Expiration Date Model / Serial / Lot Icd-05/12/2010 Implanted:05/12 by Dana Charles (Quantity not on file) Explanted:05/17 (Quantity not on file) ICD Chest [employer] ICM, PAF TELIG EN E110 / [id number] / Description:Chronic leads fr om 2000. Procedures Procedure Name Priority Date/Time Associated Diagnosis Comments MRI LUMBAR SPINE WO CONTRAST Schedule Routine, Read Routine (OP Routine) 05/13/2025 1:48 PM INSURANCE REPRESENTATIVE Low back pain, non-specific Other idiopathic peripheral autonomic neuropathy XR CHEST PA LATERAL 2 VIEWS Schedule KAILASH, Read KAILASH (Appt Today, Awaiting Results) 05/12/2025 1:18 PM INSURANCE REPRESENTATIVE Cardiomyopathy, ischemic Biventricular ICD (implantable cardioverter-defib rillator) in place Chronic systolic congestive heart failure (HCC) DEVICE CHECK - IN OFFICE Routine 05/12/2025 12:08 PM INSURANCE REPRESENTATIVE Cardiomyopathy, ischemic DEVICE CHECK - REMOTE Routine 04/08/2025 7:21 AM INSURANCE REPRESENTATIVE Cardiomyopathy, ischemic PAF (paroxysmal atrial fibrillation) NSVT (nonsustained ventricular tachycardia) (HCC) from Last 3 Months Results * MRI Lumbar Spine WO Contrast (05/13/2025 1:48 PM INSURANCE REPRESENTATIVE) Anatomical Region Laterality Modality Spine N/A Magnetic Resonan ce 05/13/2025 1:58 PM INSURANCE REPRESENTATIVE Impressions 05/13/2025 1:58 PM INSURANCE REPRESENTATIVE 1. Multilevel degenerative changes of the lumbar spine as described above. 2. No significant central spinal stenosis. 3. L4-L5 bilateral right worse than left foraminal disc bulges with bilateral moderate foraminal stenoses. 4. L5-S1 bilateral moderate foraminal stenoses. Electronically signed by: Tramaine Tinsley MD Narrative 05/13/2025 1:58 PM INSURANCE REPRESENTATIVE EXAMINATION: Magnetic resonance imaging (MRI) of the lumbar spine without contrast HISTORY: Chronic low back pain TECHNIQUE: Multiplanar multi-weighted MRI of the lumbar spine was performed without intravenous contrast using the standard protocol. COMPARISON: None Available. FINDINGS: Alignment and segmentation: Normal segmentation is present with 5 nonrib-bearing lumbar-type vertebra. Minimal retrolisthesis of L1 on L2, L2 on L3, L3 on L4 and L5 on S1 vertebra are noted. Mild dextroconvex scoliosis of the thoracolumbar junction and a mild levoconvex scoliosis of the lower lumbar spine. Conus medullaris and cauda equina: Visualized distal thoracic spinal cord and conus medullaris are normal in appearance with the conus terminating at L1-L2 level. Cauda equina is normal in appearance. Degenerative disc and endplate disease: Chronic degenerative disc disease is present throughout the lumbar spine with variable degrees of disc degeneration and disc height loss with endplate irregularities, sclerosis and osteophytes. Facet joints and ligamentum flavum: Multilevel facet arthropathy is present at L1-L2 through L5-S1 levels. Ligamentum flavum hypertrophy is present at L3-L4 and L4-L5 levels. Sacrum and SI joints: No acute abnormality involving the sacrum. Degenerative changes are present within the SI joints bilaterally. Prior surgery: No prior lumbar spine surgery. Fracture: No acute fracture. Paraspinal soft tissues: No significant acute abnormality involving the visualized anterior paravertebral and posterior paraspinal soft tissues. Level by level analysis: L1-L2: No significant central spinal stenosis. No significant neural foraminal stenosis. L2-L3: No significant central spinal stenosis. No significant neural foraminal stenosis. L3-L4: No significant central spinal stenosis. No significant neural foraminal stenosis. L4-L5: Asymmetric right worse than left foraminal disc bulges are present along with the diffuse disc bulge. No significant central spinal stenosis. Bilateral moderate neural foraminal stenosis. L5-S1: No significant central spinal stenosis. Bilateral moderate neural foraminal stenosis. Other significant findings: Bilateral renal cysts. Procedure Note Tramaine Tinsley MD - 05/13/2025 EXAMINATION: Magnetic resonance imaging (MRI) of the lumbar spine without contrast HISTORY: Chronic low back pain TECHNIQUE: Multiplanar multi-weighted MRI of the lumbar spine was performed without intravenous contrast using the standard protocol. COMPARISON: None Available. FINDINGS: Alignment and segmentation: Normal segmentation is present with 5 nonrib-bearing lumbar-type vertebra. Minimal retrolisthesis of L1 on L2, L2 on L3, L3 on L4 and L5 on S1 vertebra are noted. Mild dextroconvex scoliosis of the thoracolumbar junction and a mild levoconvex scoliosis of the lower lumbar spine. Conus medullaris and cauda equina: Visualized distal thoracic spinal cord and conus medullaris are normal in appearance with the conus terminating at L1-L2 level. Cauda equina is normal in appearance. Degenerative disc and endplate disease: Chronic degenerative disc disease is present throughout the lumbar spine with variable degrees of disc degeneration and disc height loss with endplate irregularities, sclerosis and osteophytes. Facet joints and ligamentum flavum: Multilevel facet arthropathy is present at L1-L2 through L5-S1 levels. Ligamentum flavum hypertrophy is present at L3-L4 and L4-L5 levels. Sacrum and SI joints: No acute abnormality involving the sacrum. Degenerative changes are present within the SI joints bilaterally. Prior surgery: No prior lumbar spine surgery. Fracture: No acute fracture. Paraspinal soft tissues: No significant acute abnormality involving the visualized anterior paravertebral and posterior paraspinal soft tissues. Level by level analysis: L1-L2: No significant central spinal stenosis. No significant neural foraminal stenosis. L2-L3: No significant central spinal stenosis. No significant neural foraminal stenosis. L3-L4: No significant central spinal stenosis. No significant neural foraminal stenosis. L4-L5: Asymmetric right worse than left foraminal disc bulges are present along with the diffuse disc bulge. No significant central spinal stenosis. Bilateral moderate neural foraminal stenosis. L5-S1: No significant central spinal stenosis. Bilateral moderate neural foraminal stenosis. Other significant findings: Bilateral renal cysts. IMPRESSION: 1. Multilevel degenerative changes of the lumbar spine as described above. 2. No significant central spinal stenosis. 3. L4-L5 bilateral right worse than left foraminal disc bulges with bilateral moderate foraminal stenoses. 4. L5-S1 bilateral moderate foraminal stenoses. Electronically signed by: Tramaine Tinsley MD us Abraham Leon MD IMG MRI PROCEDURES Final Res ult * XR Chest Pa Lateral 2 Views (05/12/2025 1:18 PM INSURANCE REPRESENTATIVE) Anatomical Region Laterality Modality Body, Chest N/A Computed Radiogr aphy 05/12/2025 2:19 PM INSURANCE REPRESENTATIVE Impressions 05/12/2025 3:51 PM INSURANCE REPRESENTATIVE The current study is compared with the prior radiograph dated 05/18/2022. Left-sided pacemaker with 3 intact leads, one in the right atrium, right ventricle and coronary vein. There are no fractured or abandoned leads. No pleural effusion, consolidation or pneumothorax. Cardiomediastinal silhouette is stable. Dictated by: Lala Garcia M.D. The radiology attending physician has personally reviewed this study, and had reviewed and/or edited this written report and agrees with it. Electronically signed by: Ariel Dutton M.D. Narrative 05/12/2025 3:51 PM INSURANCE REPRESENTATIVE EXAMINATION: 2 view chest radiograph Procedure Note Ariel Dutton MD - 05/12/2025 EXAMINATION: 2 view chest radiograph IMPRESSION: The current study is compared with the prior radiograph dated 05/18/2022. Left-sided pacemaker with 3 intact leads, one in the right atrium, right ventricle and coronary vein. There are no fractured or abandoned leads. No pleural effusion, consolidation or pneumothorax. Cardiomediastinal silhouette is stable. Dictated by: Lala Garcia M.D. The radiology attending physician has personally reviewed this study, and had reviewed and/or edited this written report and agrees with it. Electronically signed by: Ariel Dutton M.D. us Leana Renee NP IMG XR PROCEDURES Final R esult * DEVICE CHECK - IN OFFICE (05/12/2025 12:08 PM INSURANCE REPRESENTATIVE) Anatomical Region Laterality Modality Other 05/12/2025 05/12/2025 Narrative 05/21/2025 11:06 AM INSURANCE REPRESENTATIVE In-clinic interrogation of SORTING LIVESTOCK WORKER-D Supervising MD: Dr. Rodriguez 79 y/o male with a hx of NICM, CHF and PAF with a [employer] SORTING LIVESTOCK WORKER-D seen in clinic for device evaluation and OV with KARLEY Dueñas for MRI clearance. Left pectoral site without inflammation or adherence. Presenting rhythm: AP/BIVP 60 bpm Underlying rhythm: CHB/BIVP @ DDD 40 bpm Dependency: Dependent Battery status, thresholds, and lead impedances WNL. Counters since 10/08/24: 8 ATR episodes lasting 14 secs-13 hours 27 mins, v. rates 69-71 bpm, EGMs suggest AF. Permanent programming changes: None Refer to dictation for additional information. Patient will continue remote monitoring with local EP. Yulia Fall RN, BSN Procedure Note Malachi Rodriguez MD - 05/21/2025 In-clinic interrogation of SORTING LIVESTOCK WORKER-D Supervising MD: Dr. Rodriguez 79 y/o male with a hx of NICM, CHF and PAF with a [employer] SORTING LIVESTOCK WORKER-Dseen in clinic for device evaluation and OV with KARLEY Dueñas for MRIclearance. Left pectoral site without inflammation or adherence. Presenting rhythm: AP/BIVP 60 bpm Underlying rhythm: CHB/BIVP @ DDD 40 bpm Dependency: Dependent Battery status, thresholds, and lead impedances WNL. Counters since 10/08/24: 8 ATR episodes lasting 14 secs-13 hours 27 mins, v.rates 69-71 bpm, EGMs suggest AF. Permanent programming changes: None Refer to dictation for additional information. Patient will continue remote monitoring with local EP. Yulia Fall, RN, BSN us Leana Renee NP [facility] LIANNA WOODY Final Result * DEVICE CHECK - REMOTE (04/08/2025 7:21 AM INSURANCE REPRESENTATIVE) Anatomical Region Laterality Modality Other Narrative 04/09/2025 1:33 PM INSURANCE REPRESENTATIVE [employer] Momentum BIV ICD upgrade. Dx; ICM, CHF, PAF. DOI 05/17/2022-vikas Macedo A & RV leads 2000. [employer]. Latitude remote monitoring. Routine DDD ICD Remote. Transmission attached. Battery status Ok, 6.5 years remaining battery life to MELODY. Stable Charge time and Shock impedance. Stable lead impedances, pacing, and sensing threshold. Presenting rhythm: AP BIVP. AP-75 %, RVP-100 %, LVP-100 %. (8) AT/AF episodes noted. IEGM demonstrates AT/AF. Longest duration 13 hr 27 min. (No) Ventricular tachy arrhythmias detected. Medication: Eliquis, Plavix, Pacerone, Toprol XL, Entresto. Follow up: Office Pacemaker/ICD scheduled 01/13/2026. Latitude remote 04/08/2025. Radha Perez RN Edinson Aguila MD [facility] PROCEDURES F inal Result from Last 3 Months Insurance MEDICARE [facility] MEDICARE SUPPLEMENT MEDICARE [facility] MEDICARE SUPPLEMENT Advance Directives For more information, please contact: [phone] * Full Code (Latest Code Status on File) Date Activated Date Inactivated Comments 05/17/2022 4:43 PM 05/18/2022 4:43 PM Care Teams Computer Operations Specialist Relationship Specialty Start Date End Date Abraham Leon MD [address] [place] [address] PCP - General 09/01/16
[2025-05-29 14:49] LABS: Add Urine Microscopic? NO; Appearance Urine Clear (Clear); Glucose Urine UA Negative (Negative); Hematocrit 36.2 % (37.0-46.0); Hemoglobin 11.9 g/dL (12.4-15.3); Leukocyte Esterase Ur Negative (Negative); Mean Corpuscular HGB Conc 32.9 g/dL (32-36); Mean Corpuscular Hemoglobin 30.7 pg (27.0-31.0); Mean Corpuscular Volume 93.3 fL (78.0-102.0); Nitrate Urine Negative (Negative); Platelet Count Result 153 K/mm3 (150-420); Red Blood Count 3.88 M/mm3 (4.70-6.10); Specific Grav Ur 1.010 (1.010-1.020); White Blood Count 4.7 K/mm3 (4.8-10.8)
[2025-05-29 15:05] LABS: MALB Creatinine Ratio 13.5 mg/g (0-30)
[2025-05-29 15:07] LABS: Hemoglobin A1C 5.3 % (<5.7)
[2025-05-29 15:24] LABS: Alanine Aminotransferase 17 U/L (6-50); Albumin Level 4.6 g/dL (3.5-5.1); Alkaline Phosphatase 54 U/L (38-126); Anion Gap 9 mmol/L (4-12); Aspartate Amino Transferase 30 U/L (17-59); Bilirubin,Total 0.7 mg/dL (0.2-1.3); Blood Urea Nitrogen 18 mg/dL (9-20); Calcium 9.4 mg/dL (8.4-10.2); Carbon Dioxide 28 mmol/L (22-30); Chloride 102 mmol/L (98-107); Cholesterol 147 mg/dL (0-200); Creatine Kinase 124 U/L (55-170); Estimated Glomerular Filt Rate 57; Glucose 95 mg/dL (65-110); HDL Direct 82 mg/dL; Iron 98 ug/dL (49-181); Osmolality Calculated 289 mOsm/kg (285-295); Potassium 4.6 mmol/L (3.4-5.0); Sodium 139 mmol/L (137-145); Total Protein 7.0 g/dL (6.3-8.2); Triglycerides 69 mg/dL (<150)
[2025-05-29 15:34] LABS: NT Pro B Type Natriuretic Pept 843 pg/mL (19.9-100)
[2025-05-29 15:40] LABS: Free T3 2.48 pg/mL (2.18-3.98)
[2025-05-29 15:55] LABS: Prostate Specific Antigen 0.5 ng/mL (< OR = 4.0)
[2025-05-29 18:37] LABS: Ferritin 75.00 ng/mL (11.1-264); Thyroid Stimulating Hormone 2.950 uIU/mL (0.465-4.680); Vitamin B12 331.0 pg/mL (239-931)
== END 2025-05-29 14:10 | disposition home or self-care (01) ==
PROVIDERS: PCP Internal Medicine Cardiovascular Disease; Visit Provider Internal Medicine
DX: R73.01 Impaired fasting glucose (principal); E03.4 Atrophy of thyroid (acquired); G62.9 Polyneuropathy, unspecified; I50.1 Left ventricular failure, unspecified; Z12.5 Encounter for screening for malignant neoplasm of prostate; D64.9 Anemia, unspecified; I48.0 Paroxysmal atrial fibrillation
CPT/HCPCS: 36415; 80053; 80061; 81003; 82043; 82550; 82607; 82728; 83036; 83540; 83880; 84153; 84443; 84481; 85027; G0103